=== PATIENT | male | born 1960 | race Caucasian/White ===

== ENCOUNTER 2016-03-20 18:19 | Inpatient (IN) | payer OTHER ==
[~2016-03-20] VITALS: Ht 185.4 cm; Wt 152.0 kg
[~2016-03-20 18:19] MED LIST: ACCOLATE20 MG PO; ACCUPRIL10 MG PO; ACCUPRIL20 MG PO; ACCUPRIL5 MG PO; ACETAMINOPHEN500 MG PO; ADULT LOW DOSE81 M1 PO; ADULT LOW STREN81 M2 PO; ADVAIR 100/501 DISK IH; ADVAIR 250/501 DISK IH; ALDACTONE25 MG PO; ALLOPURINOL100 MG PO; ALPRAZOLAM0.25 M2 PO; AMBIEN10 MG PO; AMIODARONE HCL200 MG PO; AMITRIPTYLINE H10 MG PO; AMOX TR-K CLV1 EAC4 PO; AMOXICILLIN875 MG PO; AMPICILLIN SODIU2 GM IM; ANASPAZ0.125 MG PO; APIDRA100 UNIT/1 SQ; ASPIR-LOW81 MG PO; ASPIR-MOX 325325 M1; ASPIR-MOX IB C325 MG PO; ASPIR-TRIN325 M1 PO; ASPIR-TRIN325 MG PO; ASPIRIN CHEWABL81 M1 PO; ASPIRIN E.C.81 M1 PO; ASPIRIN81 M1 PO; ATROVENT 00.5 MG/2.5 IH; AUGMENTIN875 MG PO; AVELOX ABC PAC400 MG PO; Aldactone PO; Atarax,Vistaril PO; BUPROPION XL150 MG PO; Bactrim,Septra DS 80 PO; CARDURA4 MG PO; CARVEDILOL12.5 MG PO; CARVEDILOL25 MG PO; CARVEDILOL6.25 MG PO; CEFTIN500 MG PO; CELEXA40 MG PO; CITALOPRAM HBR20 MG PO; CITALOPRAM HBR40 MG PO; COLACE100 MG PO; COLACE50 MG PO; CORDARONE200 MG PO; COREG12.5 M1 PO; COREG25 M1 PO; COUMADIN,JANTO1.5 MG PO; COUMADIN,JANTO2.5 MG PO; COUMADIN,JANTO7.5 MG PO; COUMADIN,JANTOVE5 MG PO; COUMADIN2.5 MG PO; COUMADIN5 MG PO; Ceftin PO; Cipro PO; Combivent IH; Cordarone, Pacerone PO; Cortaid,Hytone 1% Cr TP; DAILY VITAMIN1 EAC8 PO; DAILY VITE1 EAC1 PO; DESYREL 150 MG150 MG PO; DESYREL100 MG PO; DESYREL300 MG PO; DOXYCYCLINE HY100 M1 PO; DOXYCYCLINE HY100 MG PO; DUONEB 2.5-0.5 M3 ML IH; Dulcolax PO; ECOTRIN81 M1 PO; ELIQUIS5 MG PO; ENDOCET 5-3251 EACH PO; EUCERIN INTENS250 ML TP; Ecotrin PO; FENOFIBRATE160 M1 PO; FLEXERIL10 MG PO; FLEXERIL5 MG PO; FLUOXETINE HCL40 MG; FLUOXETINE HCL40 MG PO; FOLIC ACID1 MG PO; FUROSEMIDE40 MG PO; Flonase BOTH NARES; GABAPENTIN100 M1 PO; GABAPENTIN100 MG PO; GABAPENTIN300 MG PO; GABAPENTIN600 MG PO; GABAPENTIN800 MG PO; HUMULIN NP100 UNIT/1 SC; HYDROCODON-ACE1 EAC7 PO; HYOSCYAMINE0.125 M2 PO; Halfprin PO; IMDUR120 MG PO; IMDUR30 MG PO; IMDUR60 MG PO; IMODIUM A-D2 MG PO; IPRATROPIU0.2 MG/1 M IH; ISOSORBIDE; ISOSORBIDE MONO30 MG; ISOSORBIDE MONO30 MG PO; Imdur PO; JANTOVEN5 M1 PO; K-DUR10 ME2 PO; K-TAB10 MEQ PO; KENLAOG,ARISTOC60 ML TP; KETOCONAZOLE60 GM TP; KLOR-CON 1010 ME1 PO; KLOR-CON M1010 MEQ PO; KLOR-CON SPRIN10 MEQ PO; LANTUS (UNITS)1 UNIT SC; LANTUS 10100 UNITS/ SC; LANTUS 3 M100 UNITS1 SC; LASIX10 MG PO; LASIX20 MG PO; LASIX40 MG PO; LEVAQUIN750 MG PO; LIPITOR20 MG PO; LIPITOR40 MG PO; LISINOPRIL10 MG PO; LO-DOSE ASPIRIN81 M1 PO; LOFIBRA,TRIGLI160 MG PO; LOPERAMIDE2 MG PO; LOPRESSOR25 MG PO; LORAZEPAM1 MG PO; LOTRISONE15 GM TP; LOW DOSE ASPIRI81 M2 PO; LUMIGAN 0.50 DROP/22 BOTH EYES; LYRICA150 MG PO; LYRICA50 MG PO; LYRICA75 MG PO; Lasix PO; Levaquin PO; Lopressor PO; MEDROL; METOLAZONE2.5 MG PO; METOPROLOL SUCC25 MG PO; METOPROLOL TART25 MG PO; MICRO-K,K-DUR,10 ME1 PO; MICRO-K,K-DUR,10 MEQ PO; MICRO-K10 ME2 PO; MINIPRESS1 MG PO; MORGIDOX100 MG PO; MOTRIN IB200 MG PO; MULTIVITAMIN1 EAC2 PO; Micro-K,K-Tab,K-Dur, PO; NAPROSYN500 MG PO; NEURONTIN100 MG PO; NEURONTIN300 MG PO; NEURONTIN800 MG PO; NITROGLYCERIN0.4 MG SL; NITROSTAT,NITR0.4 M1 SL; NITROSTAT0.4 MG SL; NIZORAL 2% CREA15 GM TP; NOVOLIN,HU100 UNITS/; NOVOLOG 10100 UNITS/ SC; NOVOLOG MI100 UNIT/3 SC; NOVOLOG MI100 UNIT/4 SC; NOVOLOG MI100 UNIT/4 SQ; NOVOLOG MI100 UNIT/M PO; NOVOLOG MI100 UNIT/M SC; NOVOLOG PE100 UNITS/ SC; NOVOLOG100 UNIT/2 SC; Neurontin PO; OXYCODONE-APAP1 EACH PO; PACERONE200 M1 PO; PERCOCET 10/1 TABLET PO; PERCOCET 5/31 TABLET PO; PERCOCET 7.51 TABLET PO; PERPHENAZINE4 MG PO; PLAVIX75 MG PO; POTASSIUM CHLO10 ME3; POTASSIUM CHLO10 ME3 PO; POTASSIUM CHLO10 ME4 PO; POTASSIUM CHLOR8 ME3 PO; PRAZOSIN HCL1 MG PO; PREDNISONE10 MG PO; PREDNISONE20 MG PO; PRINIVIL10 MG PO; PROAIR HFA8.5 GM IH; PROVENTIL,2.5 MG/3 M IH; PROVENTIL17 GM IH; PROZAC40 MG PO; PROzac PO; PSORIASIS CREAM TP; PSORIASIS TP; PriLOSEC PO; QUESTRAN POWDE378 GM PO; ROXICODONE5 MG PO; SANTYL30 GM TP; SEPTRA DS TABL1 EACH PO; SEROQUEL50 MG PO; SERTRALINE HCL100 MG PO; SILVADENE20 GM TP; SILVER SULFADIA50 GM TP; SIMVASTATIN10 M1 PO; SIMVASTATIN10 MG PO; SINGULAIR10 MG PO; SPIRIVA1 INHALATI IH; SPIRONOLACTONE25 MG PO; SYMBICORT60 INHALAT IH; Senokot,Sennagen PO; TAMIFLU75 MG PO; TOBRAMYCIN-DEXAM5 ML BOTH EYES; TRAZODONE HCL100 MG PO; TRAZODONE HCL150 MG PO; TRAZODONE HCL300 MG PO; TRESIBA FL200 UNIT/1 SC; TRIAMCINOLONE A15 GM TP; TRILAFON4 MG PO; Tylenol Regular Stre PO; VENTOLIN HFA18 GM IH; VICTOZA 2-0.6 MG/0.1 SC; VICTOZA0.6 MG/0.1 SC; VITAMIN B12 100MCG PO; Vibramycin, Doryx PO; WARFARIN SODIU2.5 MG PO; WELLBUTRIN XL150 MG PO; XANAX0.25 MG PO; ZAROXOLYN2.5 MG PO; ZESTRIL,PRINIVI10 M1 PO; ZESTRIL,PRINIVI10 MG PO; ZESTRIL,PRINIVIL5 MG PO; ZESTRIL2.5 MG PO; ZITHROMAX Z-PA250 MG PO; ZITHROMAX250 MG PO; ZOCOR10 MG PO; ZYLOPRIM100 MG PO; ZYVOX600 MG; ZYVOX600 MG PO; Zestril,Prinivil PO; Zocor PO; [UNRECOGNIZED DRUG - CODE]; predniSONE PO
[2016-03-20 19:42] LABS: HEMATOCRIT 41.5 % (38.0-50.0); MCH 29.1 PG (29.0-34.0); MCHC 35.7 G/DL (30.0-36.0); MCV 81.5 FL (86-99); MEAN PLAT.VOLUME 10.5 uM^3 (9.0-12.4); PLATELET COUNT 80 K/uL (156-360); RBC DIS.WIDTH-CV 13.5 % (11.8-14.6); RED BLOOD COUNT 5.09 M/uL (4.00-5.50); WHITE BLOOD COUNT 6.6 K/uL (4.1-10.2)
[2016-03-20 19:53] LABS: CHLORIDE 107 mEq/L (99-109); POTASSIUM 3.4 mEq/L (3.7-5.4); SODIUM 142 mEq/L (136-147)
[2016-03-20 19:55] LABS: GLUCOSE 277 mg/dL (70-99)
[2016-03-20 19:56] LABS: ANION GAP 10 MEQ/L (2-14)
[2016-03-20 19:58] LABS: SERUM ETHYL ALCOHOL < 10 mg/dL
[2016-03-20 19:59] LABS: GFR ESTIMATE (CALCULATED) > 59 mL/min/
[2016-03-20 20:00] LABS: UREA NITROGEN (BUN) 9 mg/dL (9-23)
[2016-03-20 20:50] LABS: AMPHETAMINE NEGATIVE (500 ng/mL); BARBITURATES NEGATIVE (200 ng/mL); BENZODIAZEPINES NEGATIVE (150 ng/mL); COCAINE NEGATIVE (150 ng/mL); INTERNAL CONTROLS VALID? YES; METHADONE NEGATIVE (200 ng/mL); METHAMPHETAMINE NEGATIVE (500 ng/mL); OPIATES (MORPHINE) NEGATIVE (100 ng/mL); OXYCODONE NEGATIVE (100 ng/mL); PHENCYCLIDINE NEGATIVE (25 ng/mL); PROPOXYPHENE NEGATIVE (300 ng/mL); THC CANNABINOIDS NEGATIVE (50 ng/mL); TRICYCLIC ANTIDEPRESSANTS NEGATIVE (300 ng/mL)
[2016-03-20] MEDS ORDERED: ALDACTONE25 MG PO (22:07)
[2016-03-20] MEDS ORDERED: ENDOCET 10-3251 EACH PO (22:08)
[2016-03-20] MEDS ORDERED: LISINOPRIL2.5 MG PO (22:13)
[2016-03-20] MEDS ORDERED: HUMULIN R500 UNIT/1 SC (22:14)
[2016-03-20] MEDS ORDERED: FOLIC ACID1 MG PO (22:14)
[2016-03-20] MEDS ORDERED: ECONAZOLE NITRA15 GM TP (22:15)
[2016-03-20 22:31] VITALS: BP 146/92
[2016-03-21 06:13] LABS: POINT-OF-CARE METER ID UU13113830; POINT-OF-CARE USER ID ENVTLS63
[2016-03-21 07:59] VITALS: BP 127/74
[2016-03-21 11:43] LABS: POINT-OF-CARE METER ID UU13113830
[2016-03-21 15:36] VITALS: BP 106/62
[2016-03-21 16:38] LABS: POINT-OF-CARE METER ID UU13113830
[2016-03-21 21:07] LABS: POINT-OF-CARE METER ID UU13113830; POINT-OF-CARE USER ID ENVTLS63
[2016-03-21 21:51] VITALS: BP 104/58
[2016-03-22 02:09] LABS: POINT-OF-CARE METER ID UU13113830; POINT-OF-CARE USER ID ENVTLS63
[2016-03-22 06:33] LABS: POINT-OF-CARE METER ID UU13113830; POINT-OF-CARE USER ID ENVTLS63
[2016-03-22 09:51] VITALS: BP 128/70
[2016-03-22 11:35] LABS: POINT-OF-CARE METER ID UU13113830
[2016-03-22 15:47] VITALS: BP 138/79
[2016-03-22 17:01] LABS: POINT-OF-CARE METER ID UU13113830
[2016-03-22 20:34] LABS: POINT-OF-CARE METER ID UU13113830
[2016-03-22 21:54] VITALS: BP 149/73
[2016-03-23 06:35] LABS: POINT-OF-CARE METER ID UU13113830
[2016-03-23 07:00] VITALS: BP 102/59
[2016-03-23 07:32] LABS: Estimated Average Glucose 229 mg/dL (70-123); HEMOGLOBIN A1c (GLYCOHEMOGLOB) 9.6 % HGB (Below 5.7)
[2016-03-23 09:20] VITALS: BP 154/84
[2016-03-23 11:36] LABS: POINT-OF-CARE METER ID UU13113830
[2016-03-23 14:33] LABS: POINT-OF-CARE METER ID UU13113830
[2016-03-23 15:35] VITALS: BP 109/61
[2016-03-23 16:44] LABS: POINT-OF-CARE METER ID UU13113830
[2016-03-23 20:31] LABS: POINT-OF-CARE METER ID UU13113830
[2016-03-24 02:17] LABS: POINT-OF-CARE METER ID UU13113830
[2016-03-24 06:29] LABS: POINT-OF-CARE METER ID UU13113830
[2016-03-24 08:03] VITALS: BP 117/75
[2016-03-24 12:01] LABS: POINT-OF-CARE METER ID UU13113830; POINT-OF-CARE USER ID BHSTSA
[2016-03-24 14:20] LABS: POINT-OF-CARE METER ID UU13113830; POINT-OF-CARE USER ID BHSTSA
[2016-03-24 16:28] VITALS: BP 123/69
[2016-03-24 17:18] LABS: POINT-OF-CARE METER ID UU13113830
[2016-03-24 21:34] LABS: POINT-OF-CARE METER ID UU13113830; POINT-OF-CARE USER ID BHSSMG
[2016-03-25 06:08] LABS: POINT-OF-CARE METER ID UU13113830; POINT-OF-CARE USER ID BHSSMG
[2016-03-25 07:46] VITALS: BP 135/69
[2016-03-25] MEDS ORDERED: LEVEMIR100 UNIT/2 SC (10:30)
[2016-03-25 13:12] LABS: POINT-OF-CARE METER ID UU13113830; POINT-OF-CARE USER ID HRSENV50
== END 2016-03-25 13:02 | disposition home or self-care (01) | DRG 885 ==
LOC: EME 18:19 → EDOF 20:49 → 1WEST 20:49
PROVIDERS: Emergency Medicine; Hospitalist; Psychiatry & Neurology Psychiatry
DX: F33.1 Major depressive disorder, recurrent, moderate (principal); E11.00 Type 2 diabetes mellitus with hyperosmolarity without nonketotic hyperglycemic-hyperosmolar coma (NKHHC); R45.851 Suicidal ideations; J96.11 Chronic respiratory failure with hypoxia; Z68.41 Body mass index [BMI] 40.0-44.9, adult; F34.1 Dysthymic disorder; F60.7 Dependent personality disorder; E66.01 Morbid (severe) obesity due to excess calories; I25.10 Atherosclerotic heart disease of native coronary artery without angina pectoris; Z95.5 Presence of coronary angioplasty implant and graft; Z99.81 Dependence on supplemental oxygen; G47.33 Obstructive sleep apnea (adult) (pediatric); Z91.19 Patient's noncompliance with other medical treatment and regimen; I48.0 Paroxysmal atrial fibrillation; J45.909 Unspecified asthma, uncomplicated; J44.9 Chronic obstructive pulmonary disease, unspecified; I50.9 Heart failure, unspecified; I11.0 Hypertensive heart disease with heart failure; E78.5 Hyperlipidemia, unspecified; D69.6 Thrombocytopenia, unspecified
CPT/HCPCS: 80048; 82948; 83036; 85027; 90839; 94640; 94640 76; 94660; 97150 GO; 97165 GO; 99202; 99281; 99285; G0480; J1815

== ENCOUNTER 2016-04-10 20:08 | Inpatient (IN) | payer OTHER ==
[~2016-04-10] VITALS: Ht 185.4 cm; Wt 137.2 kg
[~2016-04-10 20:08] MED LIST changes: +ECONAZOLE NITRA15 GM TP; +ENDOCET 10-3251 EACH PO; +HUMULIN R500 UNIT/1 SC; +LEVEMIR100 UNIT/2 SC; +LISINOPRIL2.5 MG PO
[2016-04-10] MEDS ORDERED: METFORMIN HCL1000 MG PO (21:22)
[2016-04-10] MEDS ORDERED: PERCOCET 10/1 TABLET PO (21:22)
[2016-04-10] MEDS ORDERED: ELIQUIS5 MG PO (21:42)
[2016-04-10] MEDS ORDERED: TRESIBA FL100 UNIT/1 SC (21:44)
[2016-04-10 22:11] LABS: EOSINOPHIL (%) 1.6 % (0-5); EOSINOPHIL COUNT 0.1 K/uL (0-0.3); HEMATOCRIT 41.4 % (38.0-50.0); IMMATURE GRANULOCYTE (%) 0.3 % (0.0-0.7); IMMATURE GRANULOCYTE COUNT 0.2 K/uL; LYMPHOCYTE COUNT 2.1 K/uL (1.0-2.8); MCH 28.9 PG (29.0-34.0); MCHC 34.8 G/DL (30.0-36.0); MCV 83.1 FL (86-99); MEAN PLAT.VOLUME 10.6 uM^3 (9.0-12.4); MONOCYTE (%) 7.5 % (3-12); MONOCYTE COUNT 0.5 K/uL (0-0.8); NEUTROPHIL COUNT 4.1 K/uL (1.8-6.4); PLATELET COUNT 67 K/uL (156-360); RBC DIS.WIDTH-CV 13.7 % (11.8-14.6); RBC DIS.WIDTH-SD 40.9 % (39-53); RED BLOOD COUNT 4.98 M/uL (4.00-5.50); WHITE BLOOD COUNT 6.8 K/uL (4.1-10.2)
[2016-04-10 22:19] LABS: CHLORIDE 106 mEq/L (99-109); POTASSIUM 3.8 mEq/L (3.7-5.4); SODIUM 137 mEq/L (136-147)
[2016-04-10 22:20] LABS: GLUCOSE 323 mg/dL (70-99)
[2016-04-10 22:22] LABS: ANION GAP 10 MEQ/L (2-14)
[2016-04-10 22:24] LABS: GFR ESTIMATE (CALCULATED) > 59 mL/min/; SERUM ETHYL ALCOHOL < 10 mg/dL
[2016-04-10 22:25] LABS: UREA NITROGEN (BUN) 14 mg/dL (9-23)
[2016-04-10] MEDS ORDERED: WELLBUTRIN SR100 MG PO (22:49)
[2016-04-10] MEDS ORDERED: METFORMIN HCL850 MG PO (22:52)
[2016-04-10 23:27] LABS: AMPHETAMINE NEGATIVE (500 ng/mL); BARBITURATES NEGATIVE (200 ng/mL); BENZODIAZEPINES NEGATIVE (150 ng/mL); COCAINE NEGATIVE (150 ng/mL); INTERNAL CONTROLS VALID? YES; METHADONE NEGATIVE (200 ng/mL); METHAMPHETAMINE NEGATIVE (500 ng/mL); OPIATES (MORPHINE) NEGATIVE (100 ng/mL); OXYCODONE NEGATIVE (100 ng/mL); PHENCYCLIDINE NEGATIVE (25 ng/mL); PROPOXYPHENE NEGATIVE (300 ng/mL); THC CANNABINOIDS NEGATIVE (50 ng/mL); TRICYCLIC ANTIDEPRESSANTS NEGATIVE (300 ng/mL)
[2016-04-11 02:41] VITALS: BP 158/96
[2016-04-11 06:20] LABS: POINT-OF-CARE METER ID UU13113830
[2016-04-11 08:04] VITALS: BP 137/75
[2016-04-11 11:44] LABS: POINT-OF-CARE METER ID UU13113830
[2016-04-11 15:00] VITALS: BP 126/63
[2016-04-11 17:03] LABS: POINT-OF-CARE METER ID UU13113830
[2016-04-11 21:13] LABS: POINT-OF-CARE METER ID UU13113830
[2016-04-12 06:21] LABS: POINT-OF-CARE METER ID UU13113830
[2016-04-12 07:32] VITALS: BP 118/71
[2016-04-12 11:46] LABS: POINT-OF-CARE METER ID UU13113830
[2016-04-12 15:30] VITALS: BP 106/53
[2016-04-12 16:52] LABS: POINT-OF-CARE METER ID UU13113830; POINT-OF-CARE USER ID BHSMEW
[2016-04-12 21:38] LABS: POINT-OF-CARE METER ID UU13113830; POINT-OF-CARE USER ID BHSMEW
[2016-04-12 22:57] LABS: C DIFF TOXIN NEGATIVE (NEGATIVE); PROBE CHECK PASS; SPECIMEN PROCESSING CONTROL PASS
[2016-04-13 06:21] LABS: POINT-OF-CARE METER ID UU13113830; POINT-OF-CARE USER ID ENVTLS63
[2016-04-13 08:00] VITALS: BP 137/71
[2016-04-13 12:15] LABS: POINT-OF-CARE METER ID UU13113830; POINT-OF-CARE USER ID BHSTSA
[2016-04-13 15:02] VITALS: BP 105/62
[2016-04-13 16:36] LABS: POINT-OF-CARE METER ID UU13113830; POINT-OF-CARE USER ID BHSTSA
[2016-04-13 21:23] LABS: POINT-OF-CARE METER ID UU13113830
[2016-04-14 06:50] LABS: POINT-OF-CARE METER ID UU13113830
[2016-04-14 07:42] VITALS: BP 114/72
[2016-04-14 12:12] LABS: POINT-OF-CARE METER ID UU13113830; POINT-OF-CARE USER ID HRSENV50
[2016-04-14 15:18] VITALS: BP 126/66
[2016-04-14 16:54] LABS: POINT-OF-CARE METER ID UU13113830
[2016-04-14 21:19] LABS: POINT-OF-CARE METER ID UU13113830
[2016-04-15 06:15] LABS: POINT-OF-CARE METER ID UU13113830; POINT-OF-CARE USER ID BHSSMG
[2016-04-15 07:58] VITALS: BP 100/56
[2016-04-15 11:51] LABS: POINT-OF-CARE METER ID UU13113830; POINT-OF-CARE USER ID HRSENV50
== END 2016-04-15 12:58 | disposition home or self-care (01) | DRG 885 ==
LOC: EME → EDBD 20:08 → 1WEST 23:42 → EDOF 23:42 → 1WEST 04-11 02:29
PROVIDERS: Emergency Medicine; Psychiatry & Neurology Psychiatry
DX: F33.8 Other recurrent depressive disorders (principal); F60.7 Dependent personality disorder; I10 Essential (primary) hypertension; R45.851 Suicidal ideations; Z68.41 Body mass index [BMI] 40.0-44.9, adult; E11.65 Type 2 diabetes mellitus with hyperglycemia; E66.9 Obesity, unspecified; J44.9 Chronic obstructive pulmonary disease, unspecified; I50.9 Heart failure, unspecified; G40.909 Epilepsy, unspecified, not intractable, without status epilepticus; G47.30 Sleep apnea, unspecified; Z95.810 Presence of automatic (implantable) cardiac defibrillator; Z86.718 Personal history of other venous thrombosis and embolism; Z95.5 Presence of coronary angioplasty implant and graft
CPT/HCPCS: 36415; 80048; 80053; 82948; 83036 GA; 85007; 85025; 85610; 85730; 87493; 90839; 97150 GO; 97165 GO; 99281; 99285; G0480; J1815

== ENCOUNTER 2016-06-28 00:21 | Emergency (ER) | payer OTHER ==
[~2016-06-28] VITALS: Ht 188 cm; Wt 151.2 kg
[~2016-06-28 00:21] MED LIST changes: +METFORMIN HCL1000 MG PO; +METFORMIN HCL850 MG PO; +TRESIBA FL100 UNIT/1 SC; +WELLBUTRIN SR100 MG PO
[2016-06-28 00:35] LABS: POINT-OF-CARE METER ID UU14100415
[2016-06-28 00:46] LABS: MCH 29.3 PG (29.0-34.0); MCHC 33.8 G/DL (30.0-36.0); MCV 86.8 FL (86-99); MEAN PLAT.VOLUME 11.1 uM^3 (9.0-12.4); PLATELET COUNT 83 K/uL (156-360); RBC DIS.WIDTH-CV 12.7 % (11.8-14.6); RBC DIS.WIDTH-SD 40.1 % (39-53); RED BLOOD COUNT 4.84 M/uL (4.00-5.50); WHITE BLOOD COUNT 9.3 K/uL (4.1-10.2)
[2016-06-28 00:49] LABS: CARBON DIOXIDE (BICARBONATE) 26.8 MEQ/L (20-31)
[2016-06-28 00:54] LABS: CHLORIDE 106 mEq/L (99-109); SODIUM 137 mEq/L (136-147)
[2016-06-28 00:56] LABS: GLUCOSE 183 mg/dL (70-99)
[2016-06-28 00:58] LABS: ANION GAP 9 MEQ/L (2-14); TOTAL BILIRUBIN 0.6 mg/dL (0.0-1.0)
[2016-06-28 01:00] LABS: ALKALINE PHOSPHATASE 60 IU/L (3-129); GFR ESTIMATE (CALCULATED) > 59 mL/min/
[2016-06-28 01:01] LABS: UREA NITROGEN (BUN) 13 mg/dL (9-23)
[2016-06-28 03:09] LABS: TROP-I INTERPRETATION NEGATIVE; TROPONIN-I 0.02 ng/mL (0.0-0.30)
[2016-06-28 03:19] VITALS: BP 123/61
== END 2016-06-28 03:30 | disposition home or self-care (01) ==
LOC: EME 00:21
PROVIDERS: Emergency Medicine
DX: E11.649 Type 2 diabetes mellitus with hypoglycemia without coma (principal); I25.2 Old myocardial infarction; Z79.4 Long term (current) use of insulin; Z91.040 Latex allergy status; Z88.8 Allergy status to other drugs, medicaments and biological substances
CPT/HCPCS: 80053; 82010; 82803; 82948; 84484; 85027; 93005; 99281; 99284

== ENCOUNTER 2016-06-30 04:16 | Inpatient (IN) | payer OTHER ==
[~2016-06-30] VITALS: Ht 188 cm; Wt 173.4 kg
[2016-06-30] VITALS (10 sets, daily range): BP systolic 78–135; BP diastolic 39–110
[2016-06-30 04:32] LABS: POTASSIUM 3.3 mEq/L (3.7-5.4)
[2016-06-30 04:44] LABS: BASOPHIL COUNT 0.1 K/uL (0-0.1); EOSINOPHIL (%) 1.8 % (0-5); EOSINOPHIL COUNT 0.3 K/uL (0-0.3); HEMATOCRIT 52.1 % (38.0-50.0); IMMATURE GRANULOCYTE (%) 0.7 % (0.0-0.7); IMMATURE GRANULOCYTE COUNT 0.1 K/uL; INSTRUMENT ABS NEUTROPHIL CT 11.5 K/uL; LYMPHOCYTE COUNT 5.6 K/uL (1.0-2.8); MCH 29.2 PG (29.0-34.0); MCHC 32.6 G/DL (30.0-36.0); MCV 89.4 FL (86-99); MEAN PLAT.VOLUME 10.7 uM^3 (9.0-12.4); MONOCYTE (%) 5.9 % (3-12); MONOCYTE COUNT 1.1 K/uL (0-0.8); NEUTROPHIL (%) 61.4 % (45-76); NEUTROPHIL COUNT 11.5 K/uL (1.8-6.4); RBC DIS.WIDTH-CV 12.9 % (11.8-14.6); RBC DIS.WIDTH-SD 41.9 % (39-53)
[2016-06-30 04:45] LABS: PLATELET COUNT 131 K/uL (156-360); RED BLOOD COUNT 5.83 M/uL (4.00-5.50); WHITE BLOOD COUNT 18.7 K/uL (4.1-10.2)
[2016-06-30 04:51] LABS: BASE EXCESS -5.4 mEq/L (-3 to +3); BICARBONATE 25.3 mEq/L (22-26); CARBOXY HGB 1.7 % (0-5); MECHANICAL RATE 22 resp/min; METHEMOGLOBIN 0.7 % (0-1.5); MODE AC; PCO2 71 mm Hg (35-45); PEEP 8 CM/H20; PO2 46 mm Hg (80-100); TIDAL VOLUME 500 ML; TOTAL RESP RATE 22 resp/min; pH 7.16 (7.35-7.45)
[2016-06-30 04:52] LABS: DEVICE PB840; FI02 100 %; SITE LR
[2016-06-30 04:54] LABS: CHLORIDE 105 mEq/L (99-109); POTASSIUM 3.3 mEq/L (3.7-5.4); SODIUM 140 mEq/L (136-147)
[2016-06-30 04:55] LABS: INTER. NORMALIZED RATIO 1.5; PROTHROMBIN TIME 15.6 (9.2-11.2); PTT 49.7 (25-32)
[2016-06-30 04:56] LABS: GLUCOSE 213 mg/dL (70-99)
[2016-06-30 04:57] LABS: ANION GAP 17 MEQ/L (2-14)
[2016-06-30 04:59] LABS: TOTAL BILIRUBIN 0.8 mg/dL (0.0-1.0)
[2016-06-30 05:00] LABS: ALKALINE PHOSPHATASE 96 IU/L (3-129); GFR ESTIMATE (CALCULATED) > 59 mL/min/
[2016-06-30 05:01] LABS: UREA NITROGEN (BUN) 10 mg/dL (9-23)
[2016-06-30 05:03] LABS: LIPASE 28 U/L (1.0-51.0); TROP-I INTERPRETATION NEGATIVE; TROPONIN-I 0.04 ng/mL (0.0-0.30)
[2016-06-30 05:25] LABS: ADD MIUA? YES; BILIRUBIN NEGATIVE; BLOOD MODERATE; COLOR YELLOW ((YELLOW)); GLUCOSE (STRIP) 150; KETONES NEGATIVE; LEUKOCYTES NEGATIVE; NITRITE NEGATIVE; PROTEIN (STRIP) >=500; SPECIFIC GRAVITY 1.017 (1.000-1.030); UROBILINOGEN 0.2 MG/DL (0.2-1.0)
[2016-06-30 05:31] LABS: BASE EXCESS -4.2 mEq/L (-3 to +3); BICARBONATE 25.2 mEq/L (22-26); CARBOXY HGB 1.8 % (0-5); PO2 50 mm Hg (80-100)
[2016-06-30 05:32] LABS: DEVICE PB840; FI02 100 %; MECHANICAL RATE 24 resp/min; MODE AC; PCO2 63 mm Hg (35-45); PEEP 12 CM/H20; SITE LR; TIDAL VOLUME 550 ML; TOTAL RESP RATE 24 resp/min; pH 7.21 (7.35-7.45)
[2016-06-30 05:33] LABS: BACTERIA 1+ /HPF; EPITHELIAL CELLS RARE /HPF; GRANULAR CASTS 25-30 /LPF; MUCUS TRACE /LPF; RED BLOOD CELLS TNTC /HPF (0-5); UCUL ADDED? NO
[2016-06-30 05:34] LABS: CELLULAR CASTS 0-5 /LPF
[2016-06-30 06:03] LABS: D-DIMER ELISA 1.57 mg/L FEU (< 0.57)
[2016-06-30 07:02] LABS: POINT-OF-CARE METER ID UU14162636; POINT-OF-CARE USER ID ENVSME70
[2016-06-30 08:26] LABS: MAGNESIUM 2.1 mg/dL (1.3-2.7)
[2016-06-30 09:30] LABS: BASE EXCESS -3.1 mEq/L (-3 to +3); CARBOXY HGB 1.7 % (0-5); DEVICE VENT; FI02 30 %; INSPIRATION TIME 0.86 seconds; MECHANICAL RATE 24 resp/min; METHEMOGLOBIN 1.7 % (0-1.5); MODE ACPC; PCO2 39 mm Hg (35-45); PO2 463 mm Hg (80-100); SITE R ART LINE; TOTAL RESP RATE 25 resp/min; pH 7.36 (7.35-7.45)
[2016-06-30 09:31] LABS: PEEP 14 CM/H20; PRESSURE CONTROL VENTILATION 18 CM H20
[2016-06-30 09:48] LABS: INTER. NORMALIZED RATIO 1.4; PROTHROMBIN TIME 14.7 (9.2-11.2); PTT 48.2 (25-32)
[2016-06-30 10:29] LABS: METH RESISTANT S AUREUS PCR POSITIVE (NEGATIVE)
[2016-06-30 10:39] LABS: PROBE CHECK PASS
[2016-06-30 12:36] LABS: POINT-OF-CARE METER ID UU13113731
[2016-06-30] MEDS ORDERED: DESYREL300 MG PO (13:37)
[2016-06-30 13:38] LABS: TROP-I INTERPRETATION NEGATIVE; TROPONIN-I 0.09 ng/mL (0.0-0.30)
[2016-06-30] MEDS ORDERED: WELLBUTRIN XL150 MG PO (13:38)
[2016-06-30] MEDS ORDERED: SINGULAIR10 MG PO (13:41)
[2016-06-30] MEDS ORDERED: DESYREL 150 MG150 MG PO (13:42)
[2016-06-30] MEDS ORDERED: OXYCODONE-APAP1 EACH PO (13:45)
[2016-06-30] MEDS ORDERED: NOVOLIN,HU100 UNITS/ SC ×2 (13:48)
[2016-06-30 16:55] LABS: AMPHETAMINES QUANT VALUE 0 NG/ML; BARBITUATES QUANT VALUE 0 NG/ML; BENZODIAZEPINES, URINE SCREEN POSITIVE (200 ng/mL); MARIJUANA QUANT VALUE 0 NG/ML; OPIATES QUANTITATIVE VALUE 0 NG/ML; PHENCYCLIDINE QUANT VALUE 0 NG/ML; UR CREATININE CONCENTRATION 125.3 MG/DL
[2016-06-30 18:26] LABS: POINT-OF-CARE METER ID UU14174217
[2016-06-30 19:05] LABS: TROP-I INTERPRETATION NEGATIVE; TROPONIN-I 0.13 ng/mL (0.0-0.30)
[2016-07-01 00:55] LABS: BASE EXCESS -1.3 mEq/L (-3 to +3); BICARBONATE 24.3 mEq/L (22-26); CARBOXY HGB 2.6 % (0-5); METHEMOGLOBIN 1.5 % (0-1.5); PCO2 43 mm Hg (35-45); pH 7.36 (7.35-7.45)
[2016-07-01 00:56] LABS: COMMENTS - BLOOD GASES C+; DEVICE 840 VENT; FI02 30 %; MODE TUBE COMP; PEEP 5 CM/H20; PO2 56 mm Hg (80-100); SITE ALINE; TOTAL RESP RATE 23 resp/min
[2016-07-01 01:13] LABS: POINT-OF-CARE METER ID UU14162636
[2016-07-01 01:25] LABS: TROP-I INTERPRETATION NEGATIVE; TROPONIN-I 0.09 ng/mL (0.0-0.30)
[2016-07-01 02:00] VITALS: BP 144/79
[2016-07-01 03:22] LABS: BASE EXCESS -0.4 mEq/L (-3 to +3); BICARBONATE 24.8 mEq/L (22-26); CARBOXY HGB 2.9 % (0-5); COMMENTS - BLOOD GASES C+; DEVICE 980 VENT; FI02 30 %; METHEMOGLOBIN 1.5 % (0-1.5); MODE SPONT; PCO2 42 mm Hg (35-45); PEEP 7 CM/H20; PO2 63 mm Hg (80-100); PRES. SUPPORT 5 CM/H2O; SITE ALINE; pH 7.38 (7.35-7.45)
[2016-07-01 05:19] LABS: POINT-OF-CARE METER ID UU14162636
[2016-07-01 07:40] LABS: ANION GAP 10 MEQ/L (2-14); CHLORIDE 108 MEQ/L (99-109); GFR ESTIMATE (CALCULATED) > 59 mL/min/; GLUCOSE 159 mg/dL (70-99); MAGNESIUM 2.1 mg/dl (1.3-2.7); POTASSIUM 3.9 MEQ/L (3.7-5.4); SAMPLE HEMOLYSIS CHECK 0; SAMPLE ICTERIC CHECK 0; SAMPLE LIPEMIA CHECK 0; SODIUM 141 MEQ/L (136-147); UREA NITROGEN (BUN) 17 mg/dL (9-23)
[2016-07-01 07:52] LABS: TROP-I INTERPRETATION NEGATIVE; TROPONIN-I 0.08 ng/mL (0.0-0.30)
[2016-07-01 07:53] LABS: EOSINOPHIL (%) 0.9 % (0-5); EOSINOPHIL COUNT 0.1 K/uL (0-0.3); HEMATOCRIT 39.8 % (38.0-50.0); IMMATURE GRANULOCYTE (%) 0.5 % (0.0-0.7); IMMATURE GRANULOCYTE COUNT 0.1 K/uL; INSTRUMENT ABS NEUTROPHIL CT 7.8 K/uL; LYMPHOCYTE COUNT 1.7 K/uL (1.0-2.8); MCH 29.6 PG (29.0-34.0); MCHC 33.2 G/DL (30.0-36.0); MCV 89.2 FL (86-99); MONOCYTE (%) 8.8 % (3-12); MONOCYTE COUNT 0.9 K/uL (0-0.8); NEUTROPHIL (%) 73.6 % (45-76); NEUTROPHIL COUNT 7.8 K/uL (1.8-6.4); RBC DIS.WIDTH-CV 13.2 % (11.8-14.6); RBC DIS.WIDTH-SD 43.2 % (39-53)
[2016-07-01 08:02] LABS: RED BLOOD COUNT 4.46 M/uL (4.00-5.50); WHITE BLOOD COUNT 10.5 K/uL (4.1-10.2)
[2016-07-01 08:25] LABS: MEAN PLAT.VOLUME 11.5 uM^3 (9.0-12.4); PLAT.SUFFICIENCY DECREASED
[2016-07-01 08:34] LABS: PLATELET COUNT 84 K/uL (156-360)
[2016-07-01 08:35] LABS: INTERNAL CONTROL VALID? YES
[2016-07-01 09:19] LABS: BASE EXCESS -0.6 mEq/L (-3 to +3); BICARBONATE 23.2 mEq/L (22-26); CARBOXY HGB 2.7 % (0-5); METHEMOGLOBIN 1.4 % (0-1.5); pH 7.43 (7.35-7.45)
[2016-07-01 09:20] LABS: DEVICE VENT; FI02 35 %; MODE SPONT; PCO2 35 mm Hg (35-45); PO2 80 mm Hg (80-100); SITE R ARTLINE; TOTAL RESP RATE 20 resp/min
[2016-07-01 09:21] LABS: PEEP 5 CM/H20; PRES. SUPPORT 7 CM/H2O
[2016-07-01 12:56] LABS: POINT-OF-CARE METER ID UU13113731
[2016-07-01 18:04] LABS: POINT-OF-CARE METER ID UU14162636
[2016-07-01 19:00] VITALS: BP 123/71
[2016-07-01 20:00] VITALS: BP 115/74
[2016-07-01 21:00] VITALS: BP 115/74
[2016-07-01 22:00] VITALS: BP 109/54
[2016-07-01 23:00] VITALS: BP 109/54
[2016-07-02] VITALS (9 sets, daily range): BP systolic 96–150; BP diastolic 47–88
[2016-07-02] LABS: POINT-OF-CARE METER ID UU14162636
[2016-07-02 06:05] LABS: BASOPHIL COUNT 0.1 K/uL (0-0.1); EOSINOPHIL (%) 2.7 % (0-5); EOSINOPHIL COUNT 0.3 K/uL (0-0.3); HEMATOCRIT 37.4 % (38.0-50.0); IMMATURE GRANULOCYTE (%) 0.4 % (0.0-0.7); INSTRUMENT ABS NEUTROPHIL CT 6.1 K/uL; LYMPHOCYTE COUNT 2.1 K/uL (1.0-2.8); MCH 29.3 PG (29.0-34.0); MCHC 33.2 G/DL (30.0-36.0); MCV 88.4 FL (86-99); MONOCYTE (%) 7.9 % (3-12); MONOCYTE COUNT 0.7 K/uL (0-0.8); NEUTROPHIL (%) 65.7 % (45-76); NEUTROPHIL COUNT 6.1 K/uL (1.8-6.4); PLATELET COUNT 87 K/uL (156-360); RBC DIS.WIDTH-CV 12.5 % (11.8-14.6); RBC DIS.WIDTH-SD 40.5 % (39-53); RED BLOOD COUNT 4.23 M/uL (4.00-5.50); WHITE BLOOD COUNT 9.2 K/uL (4.1-10.2)
[2016-07-02 06:42] LABS: ANION GAP 8 MEQ/L (2-14); CHLORIDE 98 MEQ/L (99-109); GFR ESTIMATE (CALCULATED) > 59 mL/min/; GLUCOSE 202 mg/dL (70-99); POTASSIUM 3.5 MEQ/L (3.7-5.4); SAMPLE HEMOLYSIS CHECK 0; SAMPLE ICTERIC CHECK 0; SAMPLE LIPEMIA CHECK 0; SODIUM 137 MEQ/L (136-147); UREA NITROGEN (BUN) 17 mg/dL (9-23)
[2016-07-02 06:48] LABS: MAGNESIUM 1.7 mg/dl (1.3-2.7)
[2016-07-02 08:55] LABS: POINT-OF-CARE USER ID 612031313
[2016-07-02 12:25] LABS: POINT-OF-CARE USER ID 612031313
[2016-07-02 17:13] LABS: Estimated Average Glucose 217 mg/dL (70-123); HEMOGLOBIN A1c (GLYCOHEMOGLOB) 9.2 % HGB (Below 5.7)
[2016-07-02 21:45] LABS: POINT-OF-CARE METER ID UU14174225
[2016-07-03 05:31] LABS: HEMATOCRIT 33.6 % (38.0-50.0); MCH 29.7 PG (29.0-34.0); MCHC 33.9 G/DL (30.0-36.0); MCV 87.5 FL (86-99); MEAN PLAT.VOLUME 10.4 uM^3 (9.0-12.4); PLATELET COUNT 76 K/uL (156-360); RBC DIS.WIDTH-CV 12.5 % (11.8-14.6); RBC DIS.WIDTH-SD 40.2 % (39-53); RED BLOOD COUNT 3.84 M/uL (4.00-5.50); WHITE BLOOD COUNT 8.8 K/uL (4.1-10.2)
[2016-07-03 06:07] LABS: ANION GAP 5 MEQ/L (2-14); CHLORIDE 100 MEQ/L (99-109); EOSINOPHIL COUNT 0.2 K/uL (0-0.3); HEMATOLOGY COMMENT 1 SMEAR COMPATIBLE; IMMATURE GRANULOCYTE (%) 0.6 % (0.0-0.7); IMMATURE GRANULOCYTE COUNT 0.1 K/uL; INSTRUMENT ABS NEUTROPHIL CT 6.3 K/uL; LYMPHOCYTE COUNT 1.5 K/uL (1.0-2.8); MAGNESIUM 1.7 mg/dl (1.3-2.7); MONOCYTE (%) 8.3 % (3-12); MONOCYTE COUNT 0.7 K/uL (0-0.8); NEUTROPHIL (%) 71.3 % (45-76); NEUTROPHIL COUNT 6.3 K/uL (1.8-6.4); SAMPLE HEMOLYSIS CHECK 1; SAMPLE ICTERIC CHECK 0; SAMPLE LIPEMIA CHECK 0; SODIUM 133 MEQ/L (136-147); UREA NITROGEN (BUN) 23 mg/dL (9-23)
[2016-07-03 06:08] LABS: GFR ESTIMATE (CALCULATED) 42 mL/min/; GLUCOSE 314 mg/dL (70-99); POTASSIUM 4.7 MEQ/L (3.7-5.4)
[2016-07-03 07:25] VITALS: BP 100/61
[2016-07-03 07:42] LABS: POINT-OF-CARE METER ID UU14174225
[2016-07-03 10:31] VITALS: BP 132/84
[2016-07-03 11:42] LABS: POINT-OF-CARE METER ID UU13113696
[2016-07-03 15:02] LABS: POINT-OF-CARE METER ID UU13113819
[2016-07-03 16:43] VITALS: BP 140/87
[2016-07-03 17:36] VITALS: BP 139/77
[2016-07-03 18:00] VITALS: BP 130/70
[2016-07-03 19:30] VITALS: BP 127/60
[2016-07-03 21:01] LABS: POINT-OF-CARE USER ID ENVMNS
[2016-07-04] VITALS (7 sets, daily range): BP systolic 127–149; BP diastolic 66–82
[2016-07-04 07:47] LABS: EOSINOPHIL (%) 2.7 % (0-5); EOSINOPHIL COUNT 0.3 K/uL (0-0.3); HEMATOCRIT 36.8 % (38.0-50.0); IMMATURE GRANULOCYTE (%) 0.5 % (0.0-0.7); IMMATURE GRANULOCYTE COUNT 0.1 K/uL; INSTRUMENT ABS NEUTROPHIL CT 7.1 K/uL; LYMPHOCYTE COUNT 1.3 K/uL (1.0-2.8); MCH 29.8 PG (29.0-34.0); MCHC 33.7 G/DL (30.0-36.0); MCV 88.5 FL (86-99); MEAN PLAT.VOLUME 11.8 uM^3 (9.0-12.4); MONOCYTE (%) 6.3 % (3-12); MONOCYTE COUNT 0.6 K/uL (0-0.8); NEUTROPHIL (%) 76.6 % (45-76); NEUTROPHIL COUNT 7.1 K/uL (1.8-6.4); PLATELET COUNT 93 K/uL (156-360); RBC DIS.WIDTH-CV 12.5 % (11.8-14.6); RBC DIS.WIDTH-SD 40.2 % (39-53); RED BLOOD COUNT 4.16 M/uL (4.00-5.50); WHITE BLOOD COUNT 9.3 K/uL (4.1-10.2)
[2016-07-04 10:10] LABS: CHLORIDE 104 mEq/L (99-109); POTASSIUM 4.3 mEq/L (3.7-5.4); SODIUM 136 mEq/L (136-147)
[2016-07-04 10:12] LABS: GLUCOSE 256 mg/dL (70-99)
[2016-07-04 10:13] LABS: ANION GAP 9 MEQ/L (2-14)
[2016-07-04 10:15] LABS: GFR ESTIMATE (CALCULATED) 45 mL/min/
[2016-07-04 10:16] LABS: UREA NITROGEN (BUN) 21 mg/dL (9-23)
[2016-07-04 11:33] LABS: POINT-OF-CARE METER ID UU13113781
[2016-07-04 16:20] LABS: POINT-OF-CARE METER ID UU13113781
[2016-07-05 03:38] VITALS: BP 108/53
[2016-07-05 06:32] LABS: EOSINOPHIL (%) 2.9 % (0-5); EOSINOPHIL COUNT 0.2 K/uL (0-0.3); HEMATOCRIT 35.6 % (38.0-50.0); IMMATURE GRANULOCYTE (%) 0.9 % (0.0-0.7); IMMATURE GRANULOCYTE COUNT 0.1 K/uL; INSTRUMENT ABS NEUTROPHIL CT 5.9 K/uL; LYMPHOCYTE COUNT 1.5 K/uL (1.0-2.8); MCH 29.2 PG (29.0-34.0); MCHC 33.1 G/DL (30.0-36.0); MCV 88.1 FL (86-99); MEAN PLAT.VOLUME 11.4 uM^3 (9.0-12.4); MONOCYTE (%) 6.2 % (3-12); MONOCYTE COUNT 0.5 K/uL (0-0.8); NEUTROPHIL (%) 71.4 % (45-76); NEUTROPHIL COUNT 5.9 K/uL (1.8-6.4); PLATELET COUNT 115 K/uL (156-360); RBC DIS.WIDTH-CV 12.3 % (11.8-14.6); RBC DIS.WIDTH-SD 39.9 % (39-53); RED BLOOD COUNT 4.04 M/uL (4.00-5.50); WHITE BLOOD COUNT 8.2 K/uL (4.1-10.2)
[2016-07-05 06:56] LABS: ANION GAP 9 MEQ/L (2-14); CHLORIDE 98 MEQ/L (99-109); GFR ESTIMATE (CALCULATED) 45 mL/min/; GLUCOSE 339 mg/dL (70-99); MAGNESIUM 1.9 mg/dl (1.3-2.7); POTASSIUM 4.2 MEQ/L (3.7-5.4); SAMPLE HEMOLYSIS CHECK 0; SAMPLE ICTERIC CHECK 0; SAMPLE LIPEMIA CHECK 0; SODIUM 133 MEQ/L (136-147); UREA NITROGEN (BUN) 23 mg/dL (9-23)
[2016-07-05 08:35] VITALS: BP 147/82
[2016-07-05] MEDS ORDERED: AMOX TR-K CLV1 EAC4 PO (10:59)
[2016-07-05] MEDS ORDERED: DOCUSATE SODIU100 MG PO (10:59)
[2016-07-05 11:37] LABS: POINT-OF-CARE METER ID UU13113781
== END 2016-07-05 13:53 | disposition home or self-care (01) | DRG 871 ==
LOC: EME 04:16 → EDBD 04:16 → EME 04:16 → 4EAST 04:41 → 4WEST 04:41 → 5SOUTH 04:41 → EDOF 04:41 → 4WEST 05:54 → 5SOUTH 07-02 12:48 → 4EAST 07-03 16:13
PROVIDERS: Emergency Medicine; Hospitalist; Internal Medicine; Internal Medicine Nephrology; Psychiatry & Neurology Neurology
PROC: 5A1945Z Respiratory Ventilation, 24-96 Consecutive Hours (ICD-10-PCS; principal; 2016-06-30)
PROC: 0BH17EZ Insertion of Endotracheal Airway into Trachea, Via Natural or Artificial Opening (ICD-10-PCS; principal; 2016-06-30)
PROC: 03HY32Z Insertion of Monitoring Device into Upper Artery, Percutaneous Approach (ICD-10-PCS; 2016-06-30)
PROC: 4A133B1 Monitoring of Arterial Pressure, Peripheral, Percutaneous Approach (ICD-10-PCS; 2016-06-30)
PROC: 06HM33Z Insertion of Infusion Device into Right Femoral Vein, Percutaneous Approach (ICD-10-PCS; 2016-06-30)
PROC: 4A023N7 Measurement of Cardiac Sampling and Pressure, Left Heart, Percutaneous Approach (ICD-10-PCS; 2016-07-03)
PROC: B2111ZZ Fluoroscopy of Multiple Coronary Arteries using Low Osmolar Contrast (ICD-10-PCS; 2016-07-03)
DX: A41.9 Sepsis, unspecified organism (principal); J96.21 Acute and chronic respiratory failure with hypoxia; J44.0 Chronic obstructive pulmonary disease with (acute) lower respiratory infection; J15.9 Unspecified bacterial pneumonia; I50.23 Acute on chronic systolic (congestive) heart failure; I11.0 Hypertensive heart disease with heart failure; R65.21 Severe sepsis with septic shock; E87.2 Acidosis; J44.1 Chronic obstructive pulmonary disease with (acute) exacerbation; E87.6 Hypokalemia; I42.9 Cardiomyopathy, unspecified; I25.10 Atherosclerotic heart disease of native coronary artery without angina pectoris; E11.65 Type 2 diabetes mellitus with hyperglycemia; I48.0 Paroxysmal atrial fibrillation; E78.5 Hyperlipidemia, unspecified; J45.909 Unspecified asthma, uncomplicated; G47.33 Obstructive sleep apnea (adult) (pediatric); D69.6 Thrombocytopenia, unspecified; Y95 Nosocomial condition; F32.9 Major depressive disorder, single episode, unspecified; E66.01 Morbid (severe) obesity due to excess calories; Z68.41 Body mass index [BMI] 40.0-44.9, adult; Z99.81 Dependence on supplemental oxygen; Z79.01 Long term (current) use of anticoagulants; Z79.02 Long term (current) use of antithrombotics/antiplatelets; Z86.711 Personal history of pulmonary embolism; Z86.718 Personal history of other venous thrombosis and embolism; Z95.5 Presence of coronary angioplasty implant and graft; Z95.810 Presence of automatic (implantable) cardiac defibrillator; Z86.74 Personal history of sudden cardiac arrest
CPT/HCPCS: 36600; 36620; 71010; 71275; 74177; 80047; 80048; 80048 91; 80053; 80202; 80306 90; 81003; 82570; 82803; 82948; 83036; 83605; 83690; 83735; 83880; 84100; 84156; 84300; 84484; 85025; 85027; 85379; 85610; 85730; 87040; 87070; 87077; 87086; 87186; 87205; 87449; 87641; 87801; 93005; 93306; 93970; 94002; 94003; 94640; 94640 76; 94760; 94799; 99202; 99281; 99285; C1769; C1887; C9113; J0456; J1644; J1815; J1940; J2250; J2543; J3010; J3260; J3370; J3475; J3480; J7040; J7050

== ENCOUNTER 2016-08-19 01:49 | Emergency (ER) | payer OTHER ==
[~2016-08-19] VITALS: Ht 185.4 cm; Wt 150.6 kg
[~2016-08-19 01:49] MED LIST changes: +DOCUSATE SODIU100 MG PO; +NOVOLIN,HU100 UNITS/ SC
[2016-08-19 02:59] LABS: HEMATOCRIT 38.1 % (38.0-50.0); MCH 29.3 PG (29.0-34.0); MCHC 34.1 G/DL (30.0-36.0); MEAN PLAT.VOLUME 10.2 uM^3 (9.0-12.4); PLATELET COUNT 94 K/uL (156-360); RBC DIS.WIDTH-CV 13.2 % (11.8-14.6); RED BLOOD COUNT 4.43 M/uL (4.00-5.50); WHITE BLOOD COUNT 8.1 K/uL (4.1-10.2)
[2016-08-19 03:08] LABS: CHLORIDE 102 mEq/L (99-109); POTASSIUM 3.7 mEq/L (3.7-5.4); SODIUM 136 mEq/L (136-147)
[2016-08-19 03:10] LABS: GLUCOSE 282 mg/dL (70-99)
[2016-08-19 03:11] LABS: ANION GAP 10 MEQ/L (2-14)
[2016-08-19 03:12] LABS: TOTAL BILIRUBIN 0.7 mg/dL (0.0-1.0)
[2016-08-19 03:14] LABS: ALKALINE PHOSPHATASE 77 IU/L (3-129); GFR ESTIMATE (CALCULATED) > 59 mL/min/
[2016-08-19 03:15] LABS: UREA NITROGEN (BUN) 15 mg/dL (9-23)
[2016-08-19] MEDS ORDERED: BACTRIM,SEPT1 TABLET PO (03:40)
[2016-08-19] MEDS ORDERED: KEFLEX500 MG PO (03:40)
[2016-08-19 04:10] VITALS: BP 116/78
== END 2016-08-19 04:11 | disposition home or self-care (01) ==
LOC: EME 01:49
DX: E11.621 Type 2 diabetes mellitus with foot ulcer (principal); L97.519 Non-pressure chronic ulcer of other part of right foot with unspecified severity; Z79.4 Long term (current) use of insulin; L03.031 Cellulitis of right toe; I10 Essential (primary) hypertension; Z79.01 Long term (current) use of anticoagulants; Z79.02 Long term (current) use of antithrombotics/antiplatelets
CPT/HCPCS: 73630; 80053; 85027; 99281; 99283

== ENCOUNTER 2016-08-21 12:43 | Inpatient (IN) | payer OTHER ==
[~2016-08-21] VITALS: Ht 185.4 cm; Wt 152.2 kg
[~2016-08-21 12:43] MED LIST changes: +BACTRIM,SEPT1 TABLET PO; +KEFLEX500 MG PO
[2016-08-21 16:49] LABS: MCH 29.6 PG (29.0-34.0); MCHC 33.9 G/DL (30.0-36.0); MCV 87.4 FL (86-99); MEAN PLAT.VOLUME 10.3 uM^3 (9.0-12.4); PLATELET COUNT 87 K/uL (156-360); RBC DIS.WIDTH-CV 13.2 % (11.8-14.6); RED BLOOD COUNT 4.12 M/uL (4.00-5.50)
[2016-08-21 17:07] LABS: CHLORIDE 104 mEq/L (99-109); POTASSIUM 3.9 mEq/L (3.7-5.4); SODIUM 136 mEq/L (136-147)
[2016-08-21 17:09] LABS: GLUCOSE 220 mg/dL (70-99)
[2016-08-21 17:10] LABS: ANION GAP 6 MEQ/L (2-14)
[2016-08-21 17:12] LABS: GFR ESTIMATE (CALCULATED) 56 mL/min/
[2016-08-21 17:13] LABS: UREA NITROGEN (BUN) 11 mg/dL (9-23)
[2016-08-21] MEDS ORDERED: WELLBUTRIN SR100 MG PO (17:30)
[2016-08-21] MEDS ORDERED: WARFARIN SODIU2.5 MG PO (17:31)
[2016-08-21] MEDS ORDERED: PRAZOSIN HCL1 MG PO (17:31)
[2016-08-21 17:46] LABS: EOSINOPHIL (%) 2.4 % (0-5); EOSINOPHIL COUNT 0.2 K/uL (0-0.3); IMMATURE GRANULOCYTE (%) 0.4 % (0.0-0.7); INSTRUMENT ABS NEUTROPHIL CT 4.2 K/uL; LYMPHOCYTE COUNT 2.1 K/uL (1.0-2.8); MONOCYTE (%) 7.3 % (3-12); MONOCYTE COUNT 0.5 K/uL (0-0.8); NEUTROPHIL (%) 59.8 % (45-76); NEUTROPHIL COUNT 4.2 K/uL (1.8-6.4)
[2016-08-21 19:43] LABS: POINT-OF-CARE METER ID UU13113702
[2016-08-21 20:13] LABS: ERTH.SED.RATE 41 MM/HR (0-20)
[2016-08-21 21:35] VITALS: BP 125/95
[2016-08-22 06:31] LABS: HEMATOCRIT 34.7 % (38.0-50.0); MCH 30.1 PG (29.0-34.0); MCV 88.5 FL (86-99); MEAN PLAT.VOLUME 10.5 uM^3 (9.0-12.4); PLATELET COUNT 72 K/uL (156-360); RBC DIS.WIDTH-CV 13.2 % (11.8-14.6); RED BLOOD COUNT 3.92 M/uL (4.00-5.50); WHITE BLOOD COUNT 7.5 K/uL (4.1-10.2)
[2016-08-22 06:56] LABS: POINT-OF-CARE METER ID UU13113725
[2016-08-22 06:58] LABS: ANION GAP 6 MEQ/L (2-14); CHLORIDE 100 MEQ/L (99-109); GFR ESTIMATE (CALCULATED) 56 mL/min/; POTASSIUM 3.7 MEQ/L (3.7-5.4); SAMPLE HEMOLYSIS CHECK 0; SAMPLE ICTERIC CHECK 0; SAMPLE LIPEMIA CHECK 0; SODIUM 133 MEQ/L (136-147); UREA NITROGEN (BUN) 13 mg/dL (9-23)
[2016-08-22 07:00] LABS: GLUCOSE 109 mg/dL (70-99)
[2016-08-22 07:10] VITALS: BP 97/60
[2016-08-22 12:45] LABS: POINT-OF-CARE METER ID UU13113725
[2016-08-22 15:24] VITALS: BP 140/66
[2016-08-22 15:47] VITALS: BP 112/70
[2016-08-22 15:59] LABS: POINT-OF-CARE METER ID UU13113725
[2016-08-22 19:32] LABS: C DIFF TOXIN NEGATIVE (NEGATIVE); PROBE CHECK PASS; SPECIMEN PROCESSING CONTROL PASS
[2016-08-22 23:04] VITALS: BP 114/72
[2016-08-23 07:24] VITALS: BP 138/76
[2016-08-23 07:39] LABS: POINT-OF-CARE METER ID UU13113725
[2016-08-23 11:08] VITALS: BP 114/56
[2016-08-23 11:23] LABS: POINT-OF-CARE METER ID UU13113725
[2016-08-23 15:12] VITALS: BP 123/70
[2016-08-23 15:17] VITALS: BP 156/85
[2016-08-23 16:53] LABS: POINT-OF-CARE METER ID UU13113725
[2016-08-23 21:02] LABS: POINT-OF-CARE METER ID UU13113725
[2016-08-23 23:00] VITALS: BP 111/59
[2016-08-24 06:17] LABS: POINT-OF-CARE USER ID 610071303
[2016-08-24 07:08] LABS: HEMATOCRIT 36.1 % (38.0-50.0); MCHC 32.7 G/DL (30.0-36.0); MCV 88.7 FL (86-99); MEAN PLAT.VOLUME 11.1 uM^3 (9.0-12.4); PLATELET COUNT 86 K/uL (156-360); RBC DIS.WIDTH-CV 13.2 % (11.8-14.6); RBC DIS.WIDTH-SD 42.4 % (39-53); RED BLOOD COUNT 4.07 M/uL (4.00-5.50)
[2016-08-24 07:29] VITALS: BP 95/56
[2016-08-24 08:28] LABS: ANION GAP 9 MEQ/L (2-14); CHLORIDE 105 MEQ/L (99-109); GFR ESTIMATE (CALCULATED) > 59 mL/min/; GLUCOSE 136 mg/dL (70-99); POTASSIUM 3.8 MEQ/L (3.7-5.4); SAMPLE HEMOLYSIS CHECK 0; SAMPLE ICTERIC CHECK 0; SAMPLE LIPEMIA CHECK 0
[2016-08-24 08:30] LABS: SODIUM 140 MEQ/L (136-147); UREA NITROGEN (BUN) 24 mg/dL (9-23)
[2016-08-24 11:41] LABS: POINT-OF-CARE METER ID UU13113725
[2016-08-24 16:01] VITALS: BP 97/55
[2016-08-24 23:49] VITALS: BP 116/66
[2016-08-25 05:01] VITALS: BP 140/64
[2016-08-25 06:55] LABS: HEMATOCRIT 36.1 % (38.0-50.0); MCH 30.3 PG (29.0-34.0); MCHC 33.8 G/DL (30.0-36.0); MCV 89.8 FL (86-99); MEAN PLAT.VOLUME 10.5 uM^3 (9.0-12.4); PLATELET COUNT 81 K/uL (156-360); RBC DIS.WIDTH-CV 13.2 % (11.8-14.6); RBC DIS.WIDTH-SD 43.5 % (39-53); RED BLOOD COUNT 4.02 M/uL (4.00-5.50); WHITE BLOOD COUNT 6.4 K/uL (4.1-10.2)
[2016-08-25 08:39] LABS: ANION GAP 8 MEQ/L (2-14); CHLORIDE 104 MEQ/L (99-109); GFR ESTIMATE (CALCULATED) > 59 mL/min/; POTASSIUM 4.1 MEQ/L (3.7-5.4); SAMPLE HEMOLYSIS CHECK 0; SAMPLE ICTERIC CHECK 0; SAMPLE LIPEMIA CHECK 0; SODIUM 139 MEQ/L (136-147); UREA NITROGEN (BUN) 27 mg/dL (9-23); VANCOMYCIN, TROUGH 20.1 MCG/ML (10-20)
[2016-08-25 08:47] LABS: GLUCOSE 215 mg/dL (70-99)
[2016-08-25 11:31] LABS: POINT-OF-CARE METER ID UU13113725
[2016-08-25 15:20] VITALS: BP 116/68
[2016-08-25 16:20] LABS: POINT-OF-CARE METER ID UU13113725
[2016-08-25 20:24] VITALS: BP 131/69
[2016-08-25 21:30] LABS: POINT-OF-CARE METER ID UU13113725
[2016-08-25 22:28] VITALS: BP 107/59
[2016-08-26 06:46] VITALS: BP 101/56
[2016-08-26 11:26] LABS: POINT-OF-CARE METER ID UU13113725
[2016-08-26] MEDS ORDERED: ELIQUIS5 MG PO (11:29)
[2016-08-26] MEDS ORDERED: OXYCODONE-APAP1 EACH PO (11:29)
[2016-08-26 12:23] LABS: VANCOMYCIN, TROUGH 21.6 MCG/ML (10-20)
== END 2016-08-26 15:18 | DRG 638 ==
LOC: EME 12:43 → 5EAST 16:36 → EDOF 16:36 → 5EAST 21:26
PROVIDERS: Emergency Medicine; Internal Medicine
DX: E11.69 Type 2 diabetes mellitus with other specified complication (principal); M86.8X7 Other osteomyelitis, ankle and foot; E11.621 Type 2 diabetes mellitus with foot ulcer; L97.519 Non-pressure chronic ulcer of other part of right foot with unspecified severity; B95.62 Methicillin resistant Staphylococcus aureus infection as the cause of diseases classified elsewhere; E11.22 Type 2 diabetes mellitus with diabetic chronic kidney disease; I12.9 Hypertensive chronic kidney disease with stage 1 through stage 4 chronic kidney disease, or unspecified chronic kidney disease; N18.2 Chronic kidney disease, stage 2 (mild); E11.40 Type 2 diabetes mellitus with diabetic neuropathy, unspecified; D69.6 Thrombocytopenia, unspecified; J96.11 Chronic respiratory failure with hypoxia; Z99.81 Dependence on supplemental oxygen; I95.9 Hypotension, unspecified; I25.5 Ischemic cardiomyopathy; I25.10 Atherosclerotic heart disease of native coronary artery without angina pectoris; J44.9 Chronic obstructive pulmonary disease, unspecified; G47.33 Obstructive sleep apnea (adult) (pediatric); E66.01 Morbid (severe) obesity due to excess calories; Z68.41 Body mass index [BMI] 40.0-44.9, adult; F32.9 Major depressive disorder, single episode, unspecified; Z95.5 Presence of coronary angioplasty implant and graft; Z79.01 Long term (current) use of anticoagulants; Z79.4 Long term (current) use of insulin; Z82.49 Family history of ischemic heart disease and other diseases of the circulatory system; Z86.711 Personal history of pulmonary embolism; Z86.718 Personal history of other venous thrombosis and embolism; Z91.19 Patient's noncompliance with other medical treatment and regimen; Z95.810 Presence of automatic (implantable) cardiac defibrillator
CPT/HCPCS: 73630; 76937; 78315; 78999; 80048; 80053; 80202; 82565; 82948; 84520; 85025; 85027; 85651; 87040; 87070; 87075; 87077; 87147; 87186; 87205; 87493; 93926; 94660; 99281; 99283; 99285; A6021; A9503; J1815; J2543; J3370; J7030; J7050

== ENCOUNTER 2016-09-24 11:14 | Emergency (ER) | payer OTHER ==
[~2016-09-24] VITALS: Ht 185.4 cm; Wt 145.5 kg
[2016-09-24 12:58] LABS: HEMATOCRIT 39.9 % (38.0-50.0); MCHC 34.3 G/DL (30.0-36.0); MCV 84.5 FL (86-99); MEAN PLAT.VOLUME 10.7 uM^3 (9.0-12.4); PLATELET COUNT 87 K/uL (156-360); RBC DIS.WIDTH-CV 12.8 % (11.8-14.6); RBC DIS.WIDTH-SD 39.1 % (39-53); RED BLOOD COUNT 4.72 M/uL (4.00-5.50); WHITE BLOOD COUNT 7.6 K/uL (4.1-10.2)
[2016-09-24 13:09] LABS: CHLORIDE 106 mEq/L (99-109); POTASSIUM 3.9 mEq/L (3.7-5.4); SODIUM 137 mEq/L (136-147)
[2016-09-24 13:27] LABS: GLUCOSE 263 mg/dL (70-99)
[2016-09-24 13:29] LABS: ANION GAP 9 MEQ/L (2-14)
[2016-09-24 13:31] LABS: GFR ESTIMATE (CALCULATED) > 59 mL/min/
[2016-09-24 13:32] LABS: UREA NITROGEN (BUN) 12 mg/dL (9-23)
[2016-09-24] MEDS ORDERED: COUMADIN2.5 MG PO (15:05)
[2016-09-24] MEDS ORDERED: VANCOMYCIN HCL1 GM IV (15:26)
[2016-09-24 17:59] VITALS: BP 123/76
== END 2016-09-24 17:59 | disposition home or self-care (01) ==
LOC: EME 11:14
PROVIDERS: Physician Assistant Medical
DX: E11.621 Type 2 diabetes mellitus with foot ulcer (principal); L97.519 Non-pressure chronic ulcer of other part of right foot with unspecified severity; Z86.14 Personal history of Methicillin resistant Staphylococcus aureus infection; J44.9 Chronic obstructive pulmonary disease, unspecified; I11.0 Hypertensive heart disease with heart failure; I50.9 Heart failure, unspecified; Z86.718 Personal history of other venous thrombosis and embolism; Z86.711 Personal history of pulmonary embolism; Z95.810 Presence of automatic (implantable) cardiac defibrillator; Z79.4 Long term (current) use of insulin
CPT/HCPCS: 73630; 80048; 83605; 85027; 87040; J3370; J7040

== ENCOUNTER 2016-12-02 13:16 | Observation (INO) | payer OTHER ==
[~2016-12-02] VITALS: Ht 185.4 cm; Wt 155.0 kg
[~2016-12-02 13:16] MED LIST changes: -BACTROBAN OINTM22 GM TP; -DOXYCYCLINE MO100 MG PO; -MEDIHONEY44 ML TP; -ZESTRIL5 MG PO
[2016-12-02 14:00] LABS: HEMATOCRIT 41.9 % (38.0-50.0); MCH 28.8 PG (29.0-34.0); MCHC 33.9 G/DL (30.0-36.0); PLATELET COUNT 103 K/uL (156-360); RBC DIS.WIDTH-CV 12.9 % (11.8-14.6); RBC DIS.WIDTH-SD 39.5 % (39-53); RED BLOOD COUNT 4.93 M/uL (4.00-5.50); WHITE BLOOD COUNT 12.1 K/uL (4.1-10.2)
[2016-12-02 14:11] LABS: CHLORIDE 103 mEq/L (99-109); POTASSIUM 4.1 mEq/L (3.7-5.4); SODIUM 134 mEq/L (136-147)
[2016-12-02 14:13] LABS: GLUCOSE 139 mg/dL (70-99)
[2016-12-02 14:15] LABS: ANION GAP 10 MEQ/L (2-14)
[2016-12-02 14:17] LABS: GFR ESTIMATE (CALCULATED) 48 mL/min/
[2016-12-02 14:18] LABS: UREA NITROGEN (BUN) 25 mg/dL (9-23)
[2016-12-02 14:20] LABS: TROP-I INTERPRETATION NEGATIVE; TROPONIN-I 0.02 ng/mL (0.0-0.30)
[2016-12-02 16:48] LABS: TROP-I INTERPRETATION NEGATIVE; TROPONIN-I 0.02 ng/mL (0.0-0.30)
[2016-12-02] MEDS ORDERED: COLACE100 MG PO (17:27)
[2016-12-02] MEDS ORDERED: ZESTRIL5 MG PO (17:29)
[2016-12-02] MEDS ORDERED: COUMADIN5 MG PO (17:30)
[2016-12-02] MEDS ORDERED: DOXYCYCLINE MO100 MG PO (17:32)
[2016-12-02] MEDS ORDERED: BACTROBAN OINTM22 GM TP (17:32)
[2016-12-02] MEDS ORDERED: PROAIR HFA8.5 GM IH (17:33)
[2016-12-02] MEDS ORDERED: LO-DOSE ASPIRIN81 M1 PO (17:33)
[2016-12-02] MEDS ORDERED: SYMBICORT60 INHALAT IH (17:33)
[2016-12-02] MEDS ORDERED: PROVENTIL,2.5 MG/3 M IH (17:34)
[2016-12-02] MEDS ORDERED: MEDIHONEY44 ML TP (17:35)
[2016-12-02 19:26] LABS: INTER. NORMALIZED RATIO 1.3; PROTHROMBIN TIME 14.5 SEC (10.2-12.9)
[2016-12-02 19:28] LABS: PTT 38.2 SEC (25-37)
[2016-12-02 19:49] VITALS: BP 144/87
[2016-12-02 20:14] LABS: TOTAL BILIRUBIN 0.4 mg/dL (0.0-1.0)
[2016-12-02 20:16] LABS: ALKALINE PHOSPHATASE 64 IU/L (3-129)
[2016-12-02 20:18] LABS: DIRECT BILIRUBIN 0.1 mg/dL (0.0-0.3)
[2016-12-02 20:19] LABS: LIPASE 23 U/L (1.0-51.0)
[2016-12-02 22:01] LABS: METH RESISTANT S AUREUS PCR NEGATIVE (NEGATIVE)
[2016-12-02 22:02] LABS: PROBE CHECK PASS; SPECIMEN PROCESSING CONTROL PASS
[2016-12-02 22:39] LABS: POINT-OF-CARE METER ID UU13113700
[2016-12-02 23:32] VITALS: BP 115/70
[2016-12-02 23:58] LABS: TROP-I INTERPRETATION NEGATIVE; TROPONIN-I 0.02 ng/mL (0.0-0.30)
[2016-12-03 03:30] VITALS: BP 101/52
[2016-12-03 04:46] LABS: HEMATOCRIT 42.3 % (38.0-50.0); MCH 29.3 PG (29.0-34.0); MCHC 34.3 G/DL (30.0-36.0); MCV 85.5 FL (86-99); MEAN PLAT.VOLUME 11.1 uM^3 (9.0-12.4); PLATELET COUNT 98 K/uL (156-360); RBC DIS.WIDTH-SD 40.4 % (39-53); RED BLOOD COUNT 4.95 M/uL (4.00-5.50); WHITE BLOOD COUNT 7.3 K/uL (4.1-10.2)
[2016-12-03 04:53] LABS: INTER. NORMALIZED RATIO 1.4
[2016-12-03 05:10] LABS: TROP-I INTERPRETATION NEGATIVE; TROPONIN-I 0.02 ng/mL (0.0-0.30)
[2016-12-03 06:02] LABS: CHLORIDE 105 mEq/L (99-109); POTASSIUM 4.3 mEq/L (3.7-5.4); SODIUM 136 mEq/L (136-147)
[2016-12-03 06:05] LABS: ANION GAP 10 MEQ/L (2-14)
[2016-12-03 06:08] LABS: GFR ESTIMATE (CALCULATED) 56 mL/min/
[2016-12-03 06:09] LABS: UREA NITROGEN (BUN) 23 mg/dL (9-23)
[2016-12-03 06:15] LABS: GLUCOSE 253 mg/dL (70-99)
[2016-12-03 07:00] VITALS: BP 120/72
[2016-12-03 07:55] LABS: POINT-OF-CARE METER ID UU13113700
[2016-12-03 10:42] VITALS: BP 95/64
[2016-12-03] MEDS ORDERED: FUROSEMIDE40 MG PO (10:56)
[2016-12-03 13:02] LABS: POINT-OF-CARE METER ID UU13113700
== END 2016-12-03 13:25 | disposition home or self-care (01) ==
LOC: EME → EDBD 13:16 → 5WEST 18:13 → EDOF 18:13 → ENRESERV 18:15 → 5WEST 19:34
PROVIDERS: Emergency Medicine; Hospitalist
DX: R07.9 Chest pain, unspecified (principal); I13.10 Hypertensive heart and chronic kidney disease without heart failure, with stage 1 through stage 4 chronic kidney disease, or unspecified chronic kidney disease; E11.22 Type 2 diabetes mellitus with diabetic chronic kidney disease; N18.3 Chronic kidney disease, stage 3 (moderate); I50.22 Chronic systolic (congestive) heart failure; E66.01 Morbid (severe) obesity due to excess calories; Z68.42 Body mass index [BMI] 45.0-49.9, adult; I25.10 Atherosclerotic heart disease of native coronary artery without angina pectoris; E11.42 Type 2 diabetes mellitus with diabetic polyneuropathy; E11.621 Type 2 diabetes mellitus with foot ulcer; L97.519 Non-pressure chronic ulcer of other part of right foot with unspecified severity; E78.5 Hyperlipidemia, unspecified; I25.5 Ischemic cardiomyopathy; Z95.5 Presence of coronary angioplasty implant and graft; G47.33 Obstructive sleep apnea (adult) (pediatric); Z95.810 Presence of automatic (implantable) cardiac defibrillator; Z86.74 Personal history of sudden cardiac arrest; I25.2 Old myocardial infarction; J44.9 Chronic obstructive pulmonary disease, unspecified; J96.11 Chronic respiratory failure with hypoxia; Z99.81 Dependence on supplemental oxygen; Z86.718 Personal history of other venous thrombosis and embolism; Z87.01 Personal history of pneumonia (recurrent); Z86.14 Personal history of Methicillin resistant Staphylococcus aureus infection; Z82.49 Family history of ischemic heart disease and other diseases of the circulatory system; D69.6 Thrombocytopenia, unspecified; Z86.711 Personal history of pulmonary embolism; Z79.82 Long term (current) use of aspirin; Z79.4 Long term (current) use of insulin; I48.0 Paroxysmal atrial fibrillation; Z88.8 Allergy status to other drugs, medicaments and biological substances; Z91.09 Other allergy status, other than to drugs and biological substances
CPT/HCPCS: 71010; 78999; 80048; 80076; 82948; 83605; 83690; 84484; 85027; 85610; 85730; 87040; 87641; 93005; 94640; 99202; 99281; 99283; G0378; J1650; J1815

== ENCOUNTER → 2016-12-02 | Outpatient (CLI) | payer OTHER ==
[~2016-12-02] MED LIST changes: +BACTROBAN OINTM22 GM TP; +DOXYCYCLINE MO100 MG PO; +MEDIHONEY44 ML TP; +VANCOMYCIN HCL1 GM IV; +ZESTRIL5 MG PO
== END | disposition home or self-care (01) ==
LOC: NUC 09:09
DX: R93.7 Abnormal findings on diagnostic imaging of other parts of musculoskeletal system (principal); L89.890 Pressure ulcer of other site, unstageable; M86.471 Chronic osteomyelitis with draining sinus, right ankle and foot
CPT/HCPCS: 78315; A9503

== ENCOUNTER 2017-01-10 23:33 | Inpatient (IN) | payer OTHER ==
[~2017-01-10] VITALS: Ht 190.5 cm; Wt 154.5 kg
[~2017-01-10 23:33] MED LIST changes: +BACTROBAN OINTM22 GM TP; +DOXYCYCLINE MO100 MG PO; +MEDIHONEY44 ML TP; +ZESTRIL5 MG PO
[2017-01-10 23:56] LABS: EOSINOPHIL (%) 2.8 % (0-5); EOSINOPHIL COUNT 0.2 K/uL (0-0.3); HEMATOCRIT 41.1 % (38.0-50.0); IMMATURE GRANULOCYTE (%) 0.6 % (0.0-0.7); INSTRUMENT ABS NEUTROPHIL CT 4.4 K/uL; LYMPHOCYTE COUNT 1.7 K/uL (1.0-2.8); MCH 29.3 PG (29.0-34.0); MCHC 34.1 G/DL (30.0-36.0); MEAN PLAT.VOLUME 11.1 uM^3 (9.0-12.4); MONOCYTE (%) 9.2 % (3-12); MONOCYTE COUNT 0.7 K/uL (0-0.8); NEUTROPHIL COUNT 4.4 K/uL (1.8-6.4); PLATELET COUNT 98 K/uL (156-360); RBC DIS.WIDTH-CV 13.2 % (11.8-14.6); RBC DIS.WIDTH-SD 41.2 % (39-53); RED BLOOD COUNT 4.78 M/uL (4.00-5.50)
[2017-01-11 00:02] LABS: INTER. NORMALIZED RATIO 1.4; PROTHROMBIN TIME 15.7 SEC (10.2-12.9)
[2017-01-11 00:04] LABS: PTT 58.5 SEC (25-37)
[2017-01-11 00:12] LABS: CHLORIDE 104 mEq/L (99-109); POTASSIUM 3.8 mEq/L (3.7-5.4); SODIUM 136 mEq/L (136-147)
[2017-01-11 00:15] LABS: ANION GAP 11 MEQ/L (2-14)
[2017-01-11 00:16] LABS: TROP-I INTERPRETATION NEGATIVE; TROPONIN-I 0.03 ng/mL (0.0-0.30)
[2017-01-11 00:18] LABS: GFR ESTIMATE (CALCULATED) > 59 mL/min/
[2017-01-11 00:19] LABS: UREA NITROGEN (BUN) 10 mg/dL (9-23)
[2017-01-11 00:24] LABS: GLUCOSE 402 mg/dL (70-99)
[2017-01-11 02:53] LABS: POINT-OF-CARE METER ID UU13113702
[2017-01-11 05:31] VITALS: BP 144/77
[2017-01-11 05:47] LABS: POINT-OF-CARE METER ID UU13113717
[2017-01-11 08:00] VITALS: BP 128/81
[2017-01-11 08:10] LABS: POINT-OF-CARE METER ID UU13113717
[2017-01-11 10:13] LABS: POINT-OF-CARE METER ID UU13113717
[2017-01-11 11:56] VITALS: BP 145/83
[2017-01-11 12:12] LABS: POINT-OF-CARE METER ID UU13113717
[2017-01-11 13:21] LABS: TROP-I INTERPRETATION NEGATIVE; TROPONIN-I 0.03 ng/mL (0.0-0.30)
[2017-01-11 15:21] VITALS: BP 107/60
[2017-01-11 17:00] LABS: POINT-OF-CARE METER ID UU13113717
[2017-01-11 19:14] VITALS: BP 137/81
[2017-01-11 21:03] LABS: POINT-OF-CARE METER ID UU13113717
[2017-01-12 00:11] VITALS: BP 117/75
[2017-01-12 03:08] VITALS: BP 107/60
[2017-01-12 06:30] LABS: BASOPHIL COUNT 0.1 K/uL (0-0.1); EOSINOPHIL (%) 4.8 % (0-5); EOSINOPHIL COUNT 0.3 K/uL (0-0.3); HEMATOCRIT 40.4 % (38.0-50.0); IMMATURE GRANULOCYTE (%) 0.3 % (0.0-0.7); INSTRUMENT ABS NEUTROPHIL CT 3.5 K/uL; MCH 28.4 PG (29.0-34.0); MCHC 32.7 G/DL (30.0-36.0); MCV 86.9 FL (86-99); MEAN PLAT.VOLUME 10.5 uM^3 (9.0-12.4); MONOCYTE (%) 8.1 % (3-12); MONOCYTE COUNT 0.5 K/uL (0-0.8); NEUTROPHIL (%) 54.8 % (45-76); NEUTROPHIL COUNT 3.5 K/uL (1.8-6.4); PLATELET COUNT 94 K/uL (156-360); RBC DIS.WIDTH-CV 13.6 % (11.8-14.6); RBC DIS.WIDTH-SD 42.9 % (39-53); RED BLOOD COUNT 4.65 M/uL (4.00-5.50); WHITE BLOOD COUNT 6.5 K/uL (4.1-10.2)
[2017-01-12 07:36] LABS: ERTH.SED.RATE 29 MM/HR (0-20)
[2017-01-12 07:46] VITALS: BP 116/68
[2017-01-12 09:11] LABS: POINT-OF-CARE METER ID UU13113717
[2017-01-12 10:20] LABS: INTER. NORMALIZED RATIO 1.4; PROTHROMBIN TIME 16.5 SEC (10.2-12.9)
[2017-01-12 12:29] VITALS: BP 128/76
[2017-01-12 12:46] LABS: POINT-OF-CARE METER ID UU14174225
[2017-01-12 17:01] LABS: POINT-OF-CARE METER ID UU14174225
[2017-01-12 20:40] VITALS: BP 121/58
[2017-01-12 22:25] LABS: POINT-OF-CARE METER ID UU13113717
[2017-01-12 23:29] VITALS: BP 101/55
[2017-01-13 04:20] VITALS: BP 96/52
[2017-01-13 04:58] VITALS: BP 102/70
[2017-01-13 06:59] LABS: EOSINOPHIL (%) 3.4 % (0-5); EOSINOPHIL COUNT 0.2 K/uL (0-0.3); HEMATOCRIT 39.4 % (38.0-50.0); IMMATURE GRANULOCYTE (%) 0.5 % (0.0-0.7); INSTRUMENT ABS NEUTROPHIL CT 3.7 K/uL; LYMPHOCYTE COUNT 1.4 K/uL (1.0-2.8); MCH 28.4 PG (29.0-34.0); MCHC 32.7 G/DL (30.0-36.0); MCV 86.8 FL (86-99); MEAN PLAT.VOLUME 10.3 uM^3 (9.0-12.4); MONOCYTE (%) 8.2 % (3-12); MONOCYTE COUNT 0.5 K/uL (0-0.8); NEUTROPHIL COUNT 3.7 K/uL (1.8-6.4); PLATELET COUNT 89 K/uL (156-360); RBC DIS.WIDTH-CV 13.3 % (11.8-14.6); RBC DIS.WIDTH-SD 42.2 % (39-53); RED BLOOD COUNT 4.54 M/uL (4.00-5.50); WHITE BLOOD COUNT 5.9 K/uL (4.1-10.2)
[2017-01-13 07:27] LABS: INTER. NORMALIZED RATIO 1.4; PROTHROMBIN TIME 15.8 SEC (10.2-12.9)
[2017-01-13 07:35] VITALS: BP 130/81
[2017-01-13 07:59] LABS: ANION GAP ND MEQ/L (2-14); SAMPLE HEMOLYSIS CHECK 0; SAMPLE ICTERIC CHECK 0; SAMPLE LIPEMIA CHECK 0; TOTAL BILIRUBIN 0.5 MG/DL (0.0-1.0)
[2017-01-13 08:07] LABS: ALKALINE PHOSPHATASE 63 IU/L (3-129); GFR ESTIMATE (CALCULATED) > 59 mL/min/; GLUCOSE 251 mg/dL (70-99); UREA NITROGEN (BUN) 16 mg/dL (9-23)
[2017-01-13 09:01] LABS: CHLORIDE 105 MEQ/L (99-109); POTASSIUM 4.1 MEQ/L (3.7-5.4); SODIUM 136 MEQ/L (136-147)
[2017-01-13 11:40] LABS: POINT-OF-CARE METER ID UU14174225
[2017-01-13 15:24] VITALS: BP 123/70
[2017-01-13 16:53] LABS: POINT-OF-CARE METER ID UU13113717
[2017-01-13 20:11] LABS: POINT-OF-CARE METER ID UU13113675
[2017-01-13 23:45] LABS: POINT-OF-CARE METER ID UU13113717
[2017-01-14 00:07] VITALS: BP 110/63
[2017-01-14 04:06] VITALS: BP 110/53; BP 150/67
[2017-01-14 06:14] LABS: INTER. NORMALIZED RATIO 1.6; PROTHROMBIN TIME 18.8 SEC (10.2-12.9)
[2017-01-14 06:33] LABS: POINT-OF-CARE METER ID UU14208750
[2017-01-14 06:34] LABS: ALKALINE PHOSPHATASE 65 IU/L (3-129); ANION GAP 8 MEQ/L (2-14); CHLORIDE 107 MEQ/L (99-109); GFR ESTIMATE (CALCULATED) > 59 mL/min/; GLUCOSE 170 mg/dL (70-99); POTASSIUM 4.2 MEQ/L (3.7-5.4); SAMPLE HEMOLYSIS CHECK 1; SAMPLE ICTERIC CHECK 0; SAMPLE LIPEMIA CHECK 0; SODIUM 138 MEQ/L (136-147); TOTAL BILIRUBIN 0.6 MG/DL (0.0-1.0); UREA NITROGEN (BUN) 13 mg/dL (9-23)
[2017-01-14 07:30] VITALS: BP 131/82
[2017-01-14 07:54] LABS: EOSINOPHIL (%) 2.5 % (0-5); EOSINOPHIL COUNT 0.2 K/uL (0-0.3); HEMATOCRIT 37.7 % (38.0-50.0); IMMATURE GRANULOCYTE (%) 0.3 % (0.0-0.7); INSTRUMENT ABS NEUTROPHIL CT 5.8 K/uL; LYMPHOCYTE COUNT 1.2 K/uL (1.0-2.8); MCH 29.4 PG (29.0-34.0); MCHC 33.4 G/DL (30.0-36.0); MCV 88.1 FL (86-99); MEAN PLAT.VOLUME 11.3 uM^3 (9.0-12.4); MONOCYTE (%) 6.6 % (3-12); MONOCYTE COUNT 0.5 K/uL (0-0.8); NEUTROPHIL COUNT 5.8 K/uL (1.8-6.4); PLATELET COUNT 94 K/uL (156-360); RBC DIS.WIDTH-CV 13.4 % (11.8-14.6); RBC DIS.WIDTH-SD 42.6 % (39-53); RED BLOOD COUNT 4.28 M/uL (4.00-5.50); WHITE BLOOD COUNT 7.7 K/uL (4.1-10.2)
[2017-01-14 11:38] LABS: POINT-OF-CARE METER ID UU14162508; POINT-OF-CARE USER ID PUTDRM
[2017-01-14 16:30] VITALS: BP 108/59
[2017-01-14 16:54] LABS: POINT-OF-CARE METER ID UU14162508; POINT-OF-CARE USER ID PUTDRM
[2017-01-14 19:55] VITALS: BP 107/58
[2017-01-14 21:45] LABS: POINT-OF-CARE METER ID UU14208750
[2017-01-15 01:13] VITALS: BP 128/65
[2017-01-15 03:25] VITALS: BP 114/68
[2017-01-15 04:36] LABS: HEMATOCRIT 37.6 % (38.0-50.0); MCV 87.6 FL (86-99)
[2017-01-15 04:45] LABS: INTER. NORMALIZED RATIO 2.8; PROTHROMBIN TIME 32.2 SEC (10.2-12.9)
[2017-01-15 06:31] LABS: POINT-OF-CARE METER ID UU14162508
[2017-01-15 07:49] VITALS: BP 142/75
[2017-01-15 11:07] VITALS: BP 119/66
[2017-01-15 11:32] LABS: POINT-OF-CARE METER ID UU14162508
[2017-01-15 15:09] VITALS: BP 119/66
[2017-01-15 16:35] LABS: POINT-OF-CARE METER ID UU14162508
[2017-01-15 22:10] LABS: POINT-OF-CARE METER ID UU14162508
[2017-01-15 23:10] VITALS: BP 100/51
[2017-01-16 04:55] VITALS: BP 110/60
[2017-01-16 06:43] LABS: POINT-OF-CARE METER ID UU14208750
[2017-01-16 07:20] VITALS: BP 108/76
[2017-01-16 08:25] LABS: EOSINOPHIL (%) 1.6 % (0-5); EOSINOPHIL COUNT 0.1 K/uL (0-0.3); HEMATOCRIT 35.5 % (38.0-50.0); IMMATURE GRANULOCYTE (%) 0.3 % (0.0-0.7); INSTRUMENT ABS NEUTROPHIL CT 6.4 K/uL; LYMPHOCYTE COUNT 1.5 K/uL (1.0-2.8); MCH 28.6 PG (29.0-34.0); MCHC 32.7 G/DL (30.0-36.0); MCV 87.7 FL (86-99); MONOCYTE (%) 6.7 % (3-12); MONOCYTE COUNT 0.6 K/uL (0-0.8); NEUTROPHIL (%) 73.6 % (45-76); NEUTROPHIL COUNT 6.4 K/uL (1.8-6.4); PLATELET COUNT 107 K/uL (156-360); RBC DIS.WIDTH-CV 13.3 % (11.8-14.6); RBC DIS.WIDTH-SD 42.6 % (39-53); RED BLOOD COUNT 4.05 M/uL (4.00-5.50); WHITE BLOOD COUNT 8.7 K/uL (4.1-10.2)
[2017-01-16 08:32] LABS: INTER. NORMALIZED RATIO 2.9; PROTHROMBIN TIME 33.3 SEC (10.2-12.9)
[2017-01-16 08:54] LABS: ALKALINE PHOSPHATASE 65 IU/L (3-129); ANION GAP 7 MEQ/L (2-14); CHLORIDE 103 MEQ/L (99-109); GFR ESTIMATE (CALCULATED) > 59 mL/min/; GLUCOSE 141 mg/dL (70-99); POTASSIUM 3.9 MEQ/L (3.7-5.4); SAMPLE HEMOLYSIS CHECK 0; SAMPLE ICTERIC CHECK 0; SAMPLE LIPEMIA CHECK 0; SODIUM 139 MEQ/L (136-147); UREA NITROGEN (BUN) 12 mg/dL (9-23)
[2017-01-16 08:57] LABS: TOTAL BILIRUBIN 0.9 MG/DL (0.0-1.0)
[2017-01-16 11:10] VITALS: BP 152/90
[2017-01-16 11:37] LABS: POINT-OF-CARE METER ID UU14162508
[2017-01-16 16:29] VITALS: BP 134/61
[2017-01-16 17:28] LABS: POINT-OF-CARE METER ID UU14162508
[2017-01-16 19:35] VITALS: BP 130/67
[2017-01-16 21:39] LABS: POINT-OF-CARE METER ID UU14162508
[2017-01-16 23:25] VITALS: BP 113/62
[2017-01-17 03:00] VITALS: BP 113/72
[2017-01-17 06:39] LABS: POINT-OF-CARE METER ID UU14162508
[2017-01-17 07:00] VITALS: BP 138/77
[2017-01-17 07:13] LABS: INTER. NORMALIZED RATIO 2.6
[2017-01-17 11:53] LABS: POINT-OF-CARE METER ID UU14162508
[2017-01-17 16:06] VITALS: BP 128/87
[2017-01-17 17:28] LABS: POINT-OF-CARE METER ID UU14314084
[2017-01-17 23:53] VITALS: BP 125/82
[2017-01-18] VITALS (8 sets, daily range): BP systolic 0–152; BP diastolic 0–96
[2017-01-18 06:44] LABS: POINT-OF-CARE METER ID UU14314084
[2017-01-18 07:10] LABS: PROTHROMBIN TIME 34.1 SEC (10.2-12.9)
[2017-01-18 07:19] LABS: ANION GAP 7 MEQ/L (2-14); CHLORIDE 103 MEQ/L (99-109); GFR ESTIMATE (CALCULATED) > 59 mL/min/; POTASSIUM 4.4 MEQ/L (3.7-5.4); SAMPLE HEMOLYSIS CHECK 0; SAMPLE ICTERIC CHECK 0; SAMPLE LIPEMIA CHECK 0; SODIUM 140 MEQ/L (136-147)
[2017-01-18 07:20] LABS: GLUCOSE 243 mg/dL (70-99); UREA NITROGEN (BUN) 26 mg/dL (9-23)
[2017-01-18 08:52] LABS: BASE EXCESS 6.4 mEq/L (-3 to +3); BICARBONATE 32.3 mEq/L (22-26); CARBOXY HGB 2.2 % (0-5); METHEMOGLOBIN 1.3 % (0-1.5); PCO2 51 mm Hg (35-45); PO2 70 mm Hg (80-100); SITE RR; pH 7.41 (7.35-7.45)
[2017-01-18 08:53] LABS: COMMENTS - BLOOD GASES A+C+; DEVICE HHFNC; FI02 65 %; O2 FLOW 70 L/MIN; TOTAL RESP RATE 24 resp/min
[2017-01-18 12:59] LABS: POINT-OF-CARE METER ID UU14208751; POINT-OF-CARE USER ID 612031313
[2017-01-18 13:57] LABS: METH RESISTANT S AUREUS PCR NEGATIVE (NEGATIVE); PROBE CHECK PASS; SPECIMEN PROCESSING CONTROL PASS
[2017-01-18 22:23] LABS: POINT-OF-CARE METER ID UU14314083
[2017-01-19] VITALS (12 sets, daily range): BP systolic 112–166; BP diastolic 72–107
[2017-01-19 05:35] LABS: INTER. NORMALIZED RATIO 3.8; PROTHROMBIN TIME 44.1 SEC (10.2-12.9)
[2017-01-19 05:57] LABS: ANION GAP 6 MEQ/L (2-14); CHLORIDE 98 MEQ/L (99-109); GFR ESTIMATE (CALCULATED) > 59 mL/min/; GLUCOSE 361 mg/dL (70-99); POTASSIUM 4.7 MEQ/L (3.7-5.4); SAMPLE HEMOLYSIS CHECK 0; SAMPLE ICTERIC CHECK 0; SAMPLE LIPEMIA CHECK 0; SODIUM 137 MEQ/L (136-147); UREA NITROGEN (BUN) 28 mg/dL (9-23)
[2017-01-19 08:08] LABS: POINT-OF-CARE METER ID UU14314082
[2017-01-19 08:50] LABS: HEMATOCRIT 37.4 % (38.0-50.0); MCH 28.4 PG (29.0-34.0); MCHC 31.6 G/DL (30.0-36.0); MCV 89.9 FL (86-99); MEAN PLAT.VOLUME 11.3 uM^3 (9.0-12.4); RBC DIS.WIDTH-CV 13.3 % (11.8-14.6); RBC DIS.WIDTH-SD 43.9 % (39-53); RED BLOOD COUNT 4.16 M/uL (4.00-5.50); WHITE BLOOD COUNT 12.2 K/uL (4.1-10.2)
[2017-01-19 08:52] LABS: PLATELET COUNT 178 K/uL (156-360)
[2017-01-19 17:29] LABS: GLUCOSE 384 mg/dL (70-99)
[2017-01-20] VITALS (7 sets, daily range): BP systolic 135–152; BP diastolic 65–99
[2017-01-20 04:59] LABS: HEMATOCRIT 36.2 % (38.0-50.0); MCH 29.1 PG (29.0-34.0); MCHC 32.6 G/DL (30.0-36.0); MCV 89.4 FL (86-99); MEAN PLAT.VOLUME 11.1 uM^3 (9.0-12.4); PLATELET COUNT 178 K/uL (156-360); RBC DIS.WIDTH-SD 42.5 % (39-53); RED BLOOD COUNT 4.05 M/uL (4.00-5.50); WHITE BLOOD COUNT 12.3 K/uL (4.1-10.2)
[2017-01-20 05:15] LABS: CHLORIDE 97 mEq/L (99-109); POTASSIUM 4.7 mEq/L (3.7-5.4); SODIUM 137 mEq/L (136-147)
[2017-01-20 05:16] LABS: GLUCOSE 327 mg/dL (70-99)
[2017-01-20 05:18] LABS: ANION GAP 11 MEQ/L (2-14)
[2017-01-20 05:20] LABS: GFR ESTIMATE (CALCULATED) > 59 mL/min/
[2017-01-20 05:21] LABS: UREA NITROGEN (BUN) 32 mg/dL (9-23)
[2017-01-20 06:15] LABS: INTER. NORMALIZED RATIO 3.5; PROTHROMBIN TIME 40.3 SEC (10.2-12.9)
[2017-01-20 08:07] LABS: POINT-OF-CARE METER ID UU13113803
[2017-01-20 12:39] LABS: POINT-OF-CARE METER ID UU13113803
[2017-01-20 17:52] LABS: POINT-OF-CARE METER ID UU13113717
[2017-01-20 19:58] LABS: POINT-OF-CARE METER ID UU14174225
[2017-01-20 21:20] LABS: POINT-OF-CARE METER ID UU13113717
[2017-01-21 01:11] VITALS: BP 142/86
[2017-01-21 05:05] VITALS: BP 129/72
[2017-01-21 06:58] LABS: HEMATOCRIT 38.2 % (38.0-50.0); MCH 28.5 PG (29.0-34.0); MCHC 32.2 G/DL (30.0-36.0); MCV 88.6 FL (86-99); MEAN PLAT.VOLUME 10.6 uM^3 (9.0-12.4); PLATELET COUNT 210 K/uL (156-360); RBC DIS.WIDTH-CV 12.9 % (11.8-14.6); RBC DIS.WIDTH-SD 42.4 % (39-53); RED BLOOD COUNT 4.31 M/uL (4.00-5.50); WHITE BLOOD COUNT 10.9 K/uL (4.1-10.2)
[2017-01-21 07:00] VITALS: BP 131/87
[2017-01-21 07:21] LABS: ANION GAP 4 MEQ/L (2-14); CHLORIDE 95 MEQ/L (99-109); GFR ESTIMATE (CALCULATED) > 59 mL/min/; GLUCOSE 336 mg/dL (70-99); POTASSIUM 4.9 MEQ/L (3.7-5.4); SAMPLE HEMOLYSIS CHECK 0; SAMPLE ICTERIC CHECK 0; SAMPLE LIPEMIA CHECK 0; SODIUM 135 MEQ/L (136-147); UREA NITROGEN (BUN) 38 mg/dL (9-23)
[2017-01-21 07:34] LABS: INTER. NORMALIZED RATIO 2.8
[2017-01-21 11:19] LABS: POINT-OF-CARE METER ID UU14314082
[2017-01-21 11:19] LABS: POINT-OF-CARE METER ID UU14314082
[2017-01-21 11:21] LABS: POINT-OF-CARE METER ID UU14208751
[2017-01-21 11:50] LABS: POINT-OF-CARE METER ID UU13113717
[2017-01-21 12:15] VITALS: BP 128/70
[2017-01-21 16:35] VITALS: BP 132/68
[2017-01-21 17:33] LABS: POINT-OF-CARE METER ID UU14174225
[2017-01-21 19:40] VITALS: BP 130/69
[2017-01-21 21:11] LABS: POINT-OF-CARE METER ID UU14174225
[2017-01-22 00:22] VITALS: BP 113/59
[2017-01-22 04:00] VITALS: BP 150/86
[2017-01-22 07:00] LABS: PROTHROMBIN TIME 23.3 SEC (10.2-12.9)
[2017-01-22 07:24] VITALS: BP 133/84
[2017-01-22 08:19] LABS: POINT-OF-CARE METER ID UU13113717
[2017-01-22 12:32] LABS: POINT-OF-CARE METER ID UU13113717
[2017-01-22 16:32] VITALS: BP 132/76
[2017-01-22 17:23] LABS: POINT-OF-CARE METER ID UU14174225
[2017-01-22 20:52] LABS: POINT-OF-CARE METER ID UU13113717
[2017-01-22 23:51] VITALS: BP 120/69
[2017-01-23 06:58] VITALS: BP 147/85
[2017-01-23 07:25] LABS: POINT-OF-CARE METER ID UU13113717
[2017-01-23] MEDS ORDERED: PROVENTIL,2.5 MG/3 M IH (09:45)
[2017-01-23] MEDS ORDERED: COUMADIN3 MG PO (09:48)
[2017-01-23] MEDS ORDERED: FLORASTOR250 MG PO (09:50)
[2017-01-23] MEDS ORDERED: AUGMENTIN500 MG PO (09:54)
[2017-01-23] MEDS ORDERED: AZITHROMYCIN500 M1 PO (09:55)
[2017-01-23] MEDS ORDERED: PREDNISONE20 MG PO (09:57)
[2017-01-23 10:06] LABS: INTER. NORMALIZED RATIO 1.8; PROTHROMBIN TIME 20.7 SEC (10.2-12.9)
[2017-01-23] MEDS ORDERED: FLONASE16 G1 BOTH NARES (10:49)
[2017-01-23] MEDS ORDERED: ADVAIR 250/501 DISK IH (10:51)
[2017-01-23] MEDS ORDERED: SPIRIVA1 INHALATI IH (10:51)
[2017-01-23 11:09] LABS: POINT-OF-CARE METER ID UU13113717
[2017-01-23] MEDS ORDERED: MUCINEX1200 MG PO (11:46)
[2017-01-23 16:16] LABS: POINT-OF-CARE METER ID UU13113717
[2017-01-23 21:59] LABS: GLUCOSE 368 mg/dL (70-99)
[2017-01-24 00:20] VITALS: BP 122/60
[2017-01-24 06:29] LABS: INTER. NORMALIZED RATIO 1.9; PROTHROMBIN TIME 21.3 SEC (10.2-12.9)
[2017-01-24 07:01] VITALS: BP 179/67
[2017-01-24 07:22] LABS: POINT-OF-CARE METER ID UU13113717
[2017-01-24 11:05] LABS: POINT-OF-CARE METER ID UU13113717
[2017-01-25 14:14] LABS: POINT-OF-CARE METER ID UU13113717
== END 2017-01-24 14:19 | disposition home or self-care (01) | DRG 616 ==
LOC: EME → DELPENDDIS → EDBD 23:33 → EME 23:33 → 5SOUTH 01-11 03:19 → EDOF 01-11 03:19 → 4WEST 01-11 03:19 → ENRESERV 01-11 03:22 → 5SOUTH 01-11 05:13 → ENRESERV 01-13 21:26 → 2EAST 01-13 23:43 → ENRESERV 01-18 10:23 → 4WEST 01-18 12:05 → ENRESERV 01-20 09:27 → 5SOUTH 01-20 14:43 → ENPENDDIS 01-24 → 5SOUTH 01-24 14:19
PROVIDERS: Emergency Medicine; Family Medicine; Hospitalist; Internal Medicine; Physician Assistant Medical
PROC: 0Y6R0Z0 Detachment at Right 2nd Toe, Complete, Open Approach (ICD-10-PCS; principal; 2017-01-13)
DX: E11.69 Type 2 diabetes mellitus with other specified complication (principal); M86.171 Other acute osteomyelitis, right ankle and foot; J18.9 Pneumonia, unspecified organism; J44.0 Chronic obstructive pulmonary disease with (acute) lower respiratory infection; Y95 Nosocomial condition; J44.1 Chronic obstructive pulmonary disease with (acute) exacerbation; J96.21 Acute and chronic respiratory failure with hypoxia; J96.02 Acute respiratory failure with hypercapnia; I13.0 Hypertensive heart and chronic kidney disease with heart failure and stage 1 through stage 4 chronic kidney disease, or unspecified chronic kidney disease; I50.22 Chronic systolic (congestive) heart failure; E11.22 Type 2 diabetes mellitus with diabetic chronic kidney disease; N18.3 Chronic kidney disease, stage 3 (moderate); E11.65 Type 2 diabetes mellitus with hyperglycemia; T38.0X5A Adverse effect of glucocorticoids and synthetic analogues, initial encounter; E11.628 Type 2 diabetes mellitus with other skin complications; L03.115 Cellulitis of right lower limb; L03.031 Cellulitis of right toe; E11.621 Type 2 diabetes mellitus with foot ulcer; L97.509 Non-pressure chronic ulcer of other part of unspecified foot with unspecified severity; G47.33 Obstructive sleep apnea (adult) (pediatric); Z99.81 Dependence on supplemental oxygen; E11.42 Type 2 diabetes mellitus with diabetic polyneuropathy; E66.01 Morbid (severe) obesity due to excess calories; Z68.42 Body mass index [BMI] 45.0-49.9, adult; D69.6 Thrombocytopenia, unspecified; I71.2 Thoracic aortic aneurysm, without rupture; S91.104A Unspecified open wound of right lesser toe(s) without damage to nail, initial encounter; W22.8XXA Striking against or struck by other objects, initial encounter; Y92.002 Bathroom of unspecified non-institutional (private) residence as the place of occurrence of the external cause; I48.0 Paroxysmal atrial fibrillation; I25.119 Atherosclerotic heart disease of native coronary artery with unspecified angina pectoris; I25.5 Ischemic cardiomyopathy; I48.2 Chronic atrial fibrillation; E78.5 Hyperlipidemia, unspecified; K21.9 Gastro-esophageal reflux disease without esophagitis; I25.2 Old myocardial infarction; F33.9 Major depressive disorder, recurrent, unspecified; F60.7 Dependent personality disorder; M10.9 Gout, unspecified; R21 Rash and other nonspecific skin eruption; Z86.74 Personal history of sudden cardiac arrest; Z86.711 Personal history of pulmonary embolism; Z86.718 Personal history of other venous thrombosis and embolism; Z95.810 Presence of automatic (implantable) cardiac defibrillator; Z95.1 Presence of aortocoronary bypass graft; Z95.5 Presence of coronary angioplasty implant and graft; Z91.14 Patient's other noncompliance with medication regimen; Z91.19 Patient's noncompliance with other medical treatment and regimen; Z79.01 Long term (current) use of anticoagulants; Z79.4 Long term (current) use of insulin; Z86.14 Personal history of Methicillin resistant Staphylococcus aureus infection; Z89.411 Acquired absence of right great toe; Z87.891 Personal history of nicotine dependence; Z59.9 Problem related to housing and economic circumstances, unspecified; Z82.49 Family history of ischemic heart disease and other diseases of the circulatory system; K59.00 Constipation, unspecified; Z91.040 Latex allergy status
CPT/HCPCS: 36600; 71010; 71020; 71275; 73630; 73700; 80048; 80053; 80202; 82803; 82948; 83605; 83735; 84484; 84999; 85014; 85018; 85025; 85027; 85610; 85651; 85730; 86140; 87040; 87070; 87075; 87205; 87641; 88305; 88311; 93005; 93971; 94010; 94640; 94640 76; 94660; 94668; 94760; 94799; 97530 GO; 99202; 99281; 99285; J0690; J0692; J0696; J1650; J1815; J1940; J1956; J2250; J2543; J2930; J3370; J7030; J7050; J7512; Q0177; S0020

== ENCOUNTER 2017-03-23 07:19 | Day surgery (SDC) | payer OTHER ==
[~2017-03-23] VITALS: Ht 185.4 cm; Wt 149.6 kg
[~2017-03-23 07:19] MED LIST changes: +AUGMENTIN500 MG PO; +AZITHROMYCIN500 M1 PO; +COUMADIN3 MG PO; +FLONASE16 G1 BOTH NARES; +FLORASTOR250 MG PO; +MUCINEX1200 MG PO; -NOVOLIN,HU100 UNITS/ SC; +OXYCODONE HCL10 MG PO; +PROZOSIN PO; +SPIRIVA18 MCG IH
[2017-03-23 07:53] VITALS: BP 118/63
[2017-03-23 09:01] LABS: AMYLASE 26 IU/L (1-118)
[2017-03-23 09:06] LABS: LIPASE 54 U/L (1.0-51.0)
== END 2017-03-23 09:50 | disposition home or self-care (01) ==
LOC: SDC 07:19
PROVIDERS: Surgery
PROC: 0FJ4XZZ Inspection of Gallbladder, External Approach (ICD-10-PCS; principal; 2017-03-23)
DX: K80.20 Calculus of gallbladder without cholecystitis without obstruction (principal); Z53.09 Procedure and treatment not carried out because of other contraindication; E11.65 Type 2 diabetes mellitus with hyperglycemia
CPT/HCPCS: 82150; 82948; 83690; 87641; J0330; J0690; J1815; J2250; J3010

== ENCOUNTER 2017-03-31 09:31 | Inpatient (IN) | payer OTHER ==
[~2017-03-31] VITALS: Ht 188 cm; Wt 154.2 kg
[2017-03-31 10:00] LABS: HEMATOCRIT 44.4 % (38.0-50.0); HEMOGLOBIN 15.5 G/DL (12.5-16.6); MCH 29.6 PG (29.0-34.0); MCHC 34.9 G/DL (30.0-36.0); MCV 84.9 FL (86-99); PLATELET COUNT 74 K/uL (156-360); RBC DIS.WIDTH-CV 13.3 % (11.8-14.6); RBC DIS.WIDTH-SD 40.9 % (39-53); RED BLOOD COUNT 5.23 M/uL (4.00-5.50); WHITE BLOOD COUNT 7.8 K/uL (4.1-10.2)
[2017-03-31 10:21] LABS: CHLORIDE 103 mEq/L (99-109); POTASSIUM 4.1 mEq/L (3.7-5.4)
[2017-03-31 10:22] LABS: SODIUM 136 mEq/L (136-147)
[2017-03-31 10:23] LABS: GLUCOSE 312 mg/dL (70-99)
[2017-03-31 10:26] LABS: SERUM ETHYL ALCOHOL < 10 mg/dL
[2017-03-31 10:27] LABS: CREATININE 1.3 mg/dL (0.6-1.3); GFR ESTIMATE (CALCULATED) > 59 mL/min/ (58.99-99999)
[2017-03-31 10:28] LABS: UREA NITROGEN (BUN) 14 mg/dL (9-23)
[2017-03-31 10:41] LABS: AMPHETAMINE NEGATIVE (500 ng/mL); BARBITURATES NEGATIVE (200 ng/mL); BENZODIAZEPINES NEGATIVE (150 ng/mL); BUPRENORPHINE NEGATIVE (10 ng/mL); COCAINE NEGATIVE (150 ng/mL); METHADONE NEGATIVE (200 ng/mL); METHAMPHETAMINE NEGATIVE (500 ng/mL); OPIATES (MORPHINE) NEGATIVE (100 ng/mL); OXYCODONE NEGATIVE (100 ng/mL); PHENCYCLIDINE NEGATIVE (25 ng/mL); PROPOXYPHENE NEGATIVE (300 ng/mL); THC CANNABINOIDS NEGATIVE (50 ng/mL); TRICYCLIC ANTIDEPRESSANTS NEGATIVE (300 ng/mL)
[2017-03-31 13:44] VITALS: BP 130/78
[2017-03-31] MEDS ORDERED: FENOFIBRATE160 M1 PO (14:19)
[2017-03-31] MEDS ORDERED: GABAPENTIN800 MG PO (14:21)
[2017-03-31] MEDS ORDERED: POTASSIUM CHLO10 ME4 PO (14:22)
[2017-03-31] MEDS ORDERED: CLOPIDOGREL75 MG PO (14:23)
[2017-03-31] MEDS ORDERED: MONTELUKAST SOD10 MG PO (14:28)
[2017-03-31] MEDS ORDERED: CARVEDILOL12.5 MG PO (14:29)
[2017-03-31] MEDS ORDERED: SPIRONOLACTONE25 MG PO (14:30)
[2017-03-31] MEDS ORDERED: SIMVASTATIN10 MG PO (14:31)
[2017-03-31] MEDS ORDERED: FUROSEMIDE40 MG PO (14:31)
[2017-03-31] MEDS ORDERED: SPIRIVA1 INHALATI IH (14:32)
[2017-03-31] MEDS ORDERED: OXYCODONE-APAP1 EACH PO (14:34)
[2017-03-31] MEDS ORDERED: IMDUR30 MG PO (14:37)
[2017-03-31] MEDS ORDERED: XANAX0.25 MG PO (14:39)
[2017-03-31] MEDS ORDERED: NOVOLIN,HU100 UNITS/ SC ×2 (14:40→14:41)
[2017-03-31] MEDS ORDERED: PRAZOSIN HCL1 MG PO (14:42)
[2017-03-31] MEDS ORDERED: COLACE100 MG PO (14:44)
[2017-03-31] MEDS ORDERED: LO-DOSE ASPIRIN81 M1 PO (14:44)
[2017-03-31] MEDS ORDERED: MULTIPLE VITAM1 EACH PO (14:45)
[2017-03-31] MEDS ORDERED: LISINOPRIL2.5 MG PO (14:47)
[2017-03-31] MEDS ORDERED: DESYREL 150 MG150 MG PO (14:47)
[2017-03-31] MEDS ORDERED: NITROSTAT0.4 MG SL (14:48)
[2017-03-31] MEDS ORDERED: CORDARONE200 MG PO (14:49)
[2017-03-31] MEDS ORDERED: ELIQUIS5 MG PO (14:49)
[2017-03-31] MEDS ORDERED: FOLIC ACID1 MG PO (14:50)
[2017-03-31 15:45] VITALS: BP 173/82
[2017-04-01 08:03] VITALS: BP 98/53
[2017-04-01 15:21] VITALS: BP 146/90
[2017-04-02 08:12] VITALS: BP 151/85
[2017-04-02 11:33] LABS: CHLORIDE 103 MEQ/L (99-109); CREATININE 1.4 MG/DL (0.6-1.3); GFR ESTIMATE (CALCULATED) 56 mL/min/ (58.99-99999); GLUCOSE 386 mg/dL (70-99); POTASSIUM 4.4 MEQ/L (3.7-5.4); SODIUM 133 MEQ/L (136-147); UREA NITROGEN (BUN) 20 mg/dL (9-23)
[2017-04-02 15:36] VITALS: BP 141/87
[2017-04-03 07:53] VITALS: BP 146/74
[2017-04-03 15:46] VITALS: BP 103/63
[2017-04-04 07:33] VITALS: BP 133/75
[2017-04-04] MEDS ORDERED: BUPROPION HCL150 M2 PO (10:21)
== END 2017-04-04 12:57 | disposition home or self-care (01) | DRG 885 ==
LOC: EME 09:31 → 1WEST 12:24 → EDOF 12:24 → ENRESERV 13:24 → 1WEST 13:30
PROVIDERS: Hospitalist; Psychiatry & Neurology Psychiatry
DX: F33.1 Major depressive disorder, recurrent, moderate (principal); I11.0 Hypertensive heart disease with heart failure; F60.7 Dependent personality disorder; R45.851 Suicidal ideations; F41.9 Anxiety disorder, unspecified; E11.649 Type 2 diabetes mellitus with hypoglycemia without coma; E66.9 Obesity, unspecified; I25.10 Atherosclerotic heart disease of native coronary artery without angina pectoris; I50.9 Heart failure, unspecified; Z86.718 Personal history of other venous thrombosis and embolism; Z79.82 Long term (current) use of aspirin; Z95.5 Presence of coronary angioplasty implant and graft; Z79.4 Long term (current) use of insulin; Z95.1 Presence of aortocoronary bypass graft; Z68.41 Body mass index [BMI] 40.0-44.9, adult; Z89.411 Acquired absence of right great toe
CPT/HCPCS: 80048; 82948; 85027; 90839; 94640; 94640 76; 94660; 97150 GO; 97165 GO; 99281; 99284; G0480; J1815; J7042

== ENCOUNTER 2017-04-17 01:02 | Emergency (ER) | payer OTHER ==
[~2017-04-17] VITALS: Ht 188 cm; Wt 153.3 kg
[~2017-04-17 01:02] MED LIST changes: +BUPROPION HCL150 M2 PO; +CLOPIDOGREL75 MG PO; +MONTELUKAST SOD10 MG PO; +MULTIPLE VITAM1 EACH PO; +NOVOLIN,HU100 UNITS/ SC
[2017-04-17 01:27] LABS: HEMOGLOBIN 13.9 G/DL (12.5-16.6); MCH 29.5 PG (29.0-34.0); MCHC 34.8 G/DL (30.0-36.0); MCV 84.9 FL (86-99); PLATELET COUNT 71 K/uL (156-360); RBC DIS.WIDTH-CV 13.2 % (11.8-14.6); RBC DIS.WIDTH-SD 40.9 % (39-53); RED BLOOD COUNT 4.71 M/uL (4.00-5.50); WHITE BLOOD COUNT 7.3 K/uL (4.1-10.2)
[2017-04-17 01:37] LABS: CHLORIDE 105 mEq/L (99-109); POTASSIUM 3.8 mEq/L (3.7-5.4); SODIUM 137 mEq/L (136-147)
[2017-04-17 01:39] LABS: GLUCOSE 236 mg/dL (70-99)
[2017-04-17 01:43] LABS: CREATININE 1.2 mg/dL (0.6-1.3); GFR ESTIMATE (CALCULATED) > 59 mL/min/ (58.99-99999)
[2017-04-17 01:44] LABS: UREA NITROGEN (BUN) 15 mg/dL (9-23)
[2017-04-17 01:52] LABS: TROP-I INTERPRETATION NEGATIVE; TROPONIN-I 0.03 ng/mL (0.0-0.30)
[2017-04-17 03:08] LABS: SERUM ETHYL ALCOHOL < 10 mg/dL
[2017-04-17 03:25] LABS: AMPHETAMINE NEGATIVE (500 ng/mL); BARBITURATES NEGATIVE (200 ng/mL); BENZODIAZEPINES NEGATIVE (150 ng/mL); BUPRENORPHINE NEGATIVE (10 ng/mL); COCAINE NEGATIVE (150 ng/mL); METHADONE NEGATIVE (200 ng/mL); METHAMPHETAMINE NEGATIVE (500 ng/mL); OPIATES (MORPHINE) NEGATIVE (100 ng/mL); OXYCODONE NEGATIVE (100 ng/mL); PHENCYCLIDINE NEGATIVE (25 ng/mL); PROPOXYPHENE NEGATIVE (300 ng/mL); THC CANNABINOIDS NEGATIVE (50 ng/mL); TRICYCLIC ANTIDEPRESSANTS NEGATIVE (300 ng/mL)
[2017-04-17 04:24] VITALS: BP 134/94
== END 2017-04-17 04:44 | disposition home or self-care (01) ==
LOC: EME 01:02
PROVIDERS: Emergency Medicine
DX: R07.89 Other chest pain (principal); F33.1 Major depressive disorder, recurrent, moderate; F60.7 Dependent personality disorder; I50.9 Heart failure, unspecified; E11.9 Type 2 diabetes mellitus without complications; Z79.4 Long term (current) use of insulin; I48.91 Unspecified atrial fibrillation; I25.2 Old myocardial infarction; Z95.1 Presence of aortocoronary bypass graft; Z86.718 Personal history of other venous thrombosis and embolism; Z79.82 Long term (current) use of aspirin; J44.9 Chronic obstructive pulmonary disease, unspecified; R56.9 Unspecified convulsions; Z89.411 Acquired absence of right great toe; Z91.040 Latex allergy status
CPT/HCPCS: 71046; 80048; 84484; 85027; 90839; 93005; 99281; 99284; G0480

== ENCOUNTER 2017-06-26 03:04 | Inpatient (IN) | payer OTHER ==
[2017-06-26] VITALS (14 sets, daily range): BP systolic 98–127; BP diastolic 65–81
[~2017-06-26] VITALS: Ht 182.9 cm; Wt 148.2 kg
[2017-06-26 03:31] LABS: HEMATOCRIT 48.6 % (38.0-50.0); HEMOGLOBIN 16.2 G/DL (12.5-16.6); MCH 29.8 PG (29.0-34.0); MCHC 33.3 G/DL (30.0-36.0); NRBC (%) 0.1 /100 WBC (0-0); PLATELET COUNT 73 K/uL (156-360); RBC DIS.WIDTH-CV 13.2 % (11.8-14.6); RED BLOOD COUNT 5.43 M/uL (4.00-5.50); WHITE BLOOD COUNT 18.1 K/uL (4.1-10.2)
[2017-06-26 03:39] LABS: MCV 89.5 FL (86-99)
[2017-06-26 03:45] LABS: CHLORIDE 103 mEq/L (99-109); POTASSIUM 4.5 mEq/L (3.7-5.4); SODIUM 138 mEq/L (136-147)
[2017-06-26 03:46] LABS: GLUCOSE 322 mg/dL (70-99)
[2017-06-26 03:50] LABS: CREATININE 1.4 mg/dL (0.6-1.3); GFR ESTIMATE (CALCULATED) 56 mL/min/ (58.99-99999)
[2017-06-26 03:51] LABS: UREA NITROGEN (BUN) 23 mg/dL (9-23)
[2017-06-26 03:55] LABS: TROP-I INTERPRETATION NEGATIVE; TROPONIN-I 0.03 ng/mL (0.0-0.30)
[2017-06-26 04:16] LABS: BASE EXCESS -4.5 mEq/L (-3 to +3); BICARBONATE 28.7 mEq/L (22-26); CARBOXY HGB 1.9 % (0-5); METHEMOGLOBIN 0.6 % (0-1.5); PO2 65 mm Hg (80-100)
[2017-06-26 04:17] LABS: COMMENTS - BLOOD GASES C+; DEVICE VENT; FI02 100 %; MECHANICAL RATE 20 resp/min; MODE AC; PCO2 99 mm Hg (35-45); PEEP 20 CM/H20; SITE RR; TIDAL VOLUME 450 ML; TOTAL RESP RATE 20 resp/min; pH 7.07 (7.35-7.45)
[2017-06-26 05:58] LABS: BASE EXCESS -5.1 mEq/L (-3 to +3); CARBOXY HGB 1.6 % (0-5); METHEMOGLOBIN 1.1 % (0-1.5)
[2017-06-26 05:59] LABS: COMMENTS - BLOOD GASES C+; DEVICE VENT; FI02 100 %; MECHANICAL RATE 20 resp/min; MODE AC; PCO2 60 mm Hg (35-45); PEEP 20 CM/H20; PO2 314 mm Hg (80-100); SITE RR; TIDAL VOLUME 500 ML; TOTAL RESP RATE 28 resp/min; pH 7.21 (7.35-7.45)
[2017-06-26 12:04] LABS: CREATINE KINASE 102 IU/L (1-294); TRIGLYCERIDES 361 MG/DL (Normal: <150)
[2017-06-26 14:01] LABS: BASE EXCESS -0.7 mEq/L (-3 to +3); BICARBONATE 27.8 mEq/L (22-26); CARBOXY HGB 1.9 % (0-5); METHEMOGLOBIN 1.4 % (0-1.5); PCO2 62 mm Hg (35-45)
[2017-06-26 14:02] LABS: COMMENTS - BLOOD GASES A+C+; DEVICE VENT; FI02 100 %; MECHANICAL RATE 16 resp/min; MODE ACVC+; PEEP 12 CM/H20; PO2 108 mm Hg (80-100); SITE LR; TIDAL VOLUME 600 ML; TOTAL RESP RATE 17 resp/min
[2017-06-26 14:03] LABS: pH 7.26 (7.35-7.45)
[2017-06-26 14:09] LABS: HIGH-SENS C-REACTIVE PROTEIN 3.68 MG/DL (0.02-0.20)
[2017-06-26 14:22] LABS: LACTATE DEHYDROGENASE 298 IU/L (20-246)
[2017-06-27] VITALS (24 sets, daily range): BP systolic 16–131; BP diastolic 57–71
[2017-06-27 05:19] LABS: CHLORIDE 103 mEq/L (99-109); POTASSIUM 4.8 mEq/L (3.7-5.4); SODIUM 138 mEq/L (136-147)
[2017-06-27 05:24] LABS: CREATININE 1.7 mg/dL (0.6-1.3); GFR ESTIMATE (CALCULATED) 45 mL/min/ (58.99-99999)
[2017-06-27 05:25] LABS: HEMATOCRIT 38.2 % (38.0-50.0); MCH 29.8 PG (29.0-34.0); MCHC 33.5 G/DL (30.0-36.0); MCV 88.8 FL (86-99); RBC DIS.WIDTH-SD 42.5 % (39-53); WHITE BLOOD COUNT 9.2 K/uL (4.1-10.2)
[2017-06-27 05:27] LABS: CREATINE KINASE 55 IU/L (1-294); GLUCOSE 442 mg/dL (70-99); UREA NITROGEN (BUN) 37 mg/dL (9-23)
[2017-06-27 05:28] LABS: HEMOGLOBIN 12.8 G/DL (12.5-16.6)
[2017-06-27 06:34] LABS: PLAT.SUFFICIENCY DECREASED
[2017-06-27 07:04] LABS: IMM.PLATELET FRACTION 7.2 (1-7)
[2017-06-27 07:07] LABS: PLATELET COUNT 51 K/uL (156-360)
[2017-06-27 18:21] LABS: CREATINE KINASE 49 IU/L (1-294)
[2017-06-27 18:25] LABS: GLUCOSE 512 mg/dL (70-99)
[2017-06-28] VITALS (24 sets, daily range): BP systolic 105–176; BP diastolic 55–110
[2017-06-28 05:45] LABS: CREATINE KINASE 44 IU/L (1-294)
[2017-06-28 09:22] LABS: BASE EXCESS 4.1 mEq/L (-3 to +3); BICARBONATE 29.2 mEq/L (22-26); CARBOXY HGB 2.1 % (0-5); METHEMOGLOBIN 1.4 % (0-1.5); PCO2 45 mm Hg (35-45); PO2 77 mm Hg (80-100); SITE LR; pH 7.42 (7.35-7.45)
[2017-06-28 09:23] LABS: COMMENTS - BLOOD GASES A+C+; DEVICE VENT; FI02 50 %; MECHANICAL RATE 20 resp/min; MODE ACVC+; PEEP 12 CM/H20; TIDAL VOLUME 600 ML; TOTAL RESP RATE 20 resp/min
[2017-06-28 10:21] LABS: BASOPHIL (%) 0.1 % (0-1); EOSINOPHIL (%) 0 % (0-5); HEMATOCRIT 35.6 % (38.0-50.0); HEMOGLOBIN 11.6 G/DL (12.5-16.6); IMMATURE GRANULOCYTE (%) 0.8 % (0.0-0.7); LYMPHOCYTE (%) 8.9 % (15-42); LYMPHOCYTE COUNT 0.9 K/uL (1.0-2.8); MCH 29.2 PG (29.0-34.0); MCHC 32.6 G/DL (30.0-36.0); MCV 89.7 FL (86-99); MONOCYTE (%) 5.9 % (3-12); MONOCYTE COUNT 0.6 K/uL (0-0.8); NEUTROPHIL (%) 84.3 % (45-76); NRBC (%) 0.2 /100 WBC (0-0); RBC DIS.WIDTH-SD 42.5 % (39-53); RED BLOOD COUNT 3.97 M/uL (4.00-5.50); WHITE BLOOD COUNT 10.6 K/uL (4.1-10.2)
[2017-06-28 10:46] LABS: PLAT.SUFFICIENCY DECREASED
[2017-06-28 10:53] LABS: PLATELET COUNT 70 K/uL (156-360)
[2017-06-28 11:00] LABS: HEMATOCRIT 36.2 % (38.0-50.0); HEMOGLOBIN 11.9 G/DL (12.5-16.6); MCH 29.9 PG (29.0-34.0); MCHC 32.9 G/DL (30.0-36.0); NRBC (%) 0.5 /100 WBC (0-0); RBC DIS.WIDTH-CV 13.2 % (11.8-14.6); RBC DIS.WIDTH-SD 43.2 % (39-53); RED BLOOD COUNT 3.98 M/uL (4.00-5.50); WHITE BLOOD COUNT 10.6 K/uL (4.1-10.2)
[2017-06-28 11:07] LABS: PLATELET COUNT 71 K/uL (156-360)
[2017-06-28 11:12] LABS: LACTATE DEHYDROGENASE 271 IU/L (20-246)
[2017-06-28 11:28] LABS: ABS NEUTROPHIL COUNT 8.9; ANISOCYTOSIS 1+; ATYPICAL LYMPHOCYTE 1.8 %; BAND NEUTROPHILS 4.5 % (0-8.0); EOSINOPHIL ABS CT 0; LYMPHOCYTES 7.1 % (15.0-45.0); MONOCYTES 7.1 % (0-9.0); PLAT.SUFFICIENCY DECREASED; POLYCHROMASIA 1+; SEG.NEUTROPHILS 79.5 % (46.0-76.0)
[2017-06-28 11:37] LABS: ALKALINE PHOSPHATASE 44 IU/L (3-129); ALT (GPT) 18 IU/L (3-49); AST (GOT) 19 IU/L (2-34); CHLORIDE 107 MEQ/L (99-109); CREATININE 1.6 MG/DL (0.6-1.3); GFR ESTIMATE (CALCULATED) 48 mL/min/ (58.99-99999); GLUCOSE 302 mg/dL (70-99); HIGH-SENS C-REACTIVE PROTEIN 4.52 MG/DL (0.02-0.20); MAGNESIUM 2.4 mg/dl (1.3-2.7); PHOSPHORUS 2.8 mg/dL (2.5-4.9); POTASSIUM 4.7 MEQ/L (3.7-5.4); SODIUM 142 MEQ/L (136-147); TOTAL BILIRUBIN 0.8 MG/DL (0.0-1.0); TOTAL PROTEIN 6.3 G/DL (6.4-8.3); UREA NITROGEN (BUN) 52 mg/dL (9-23)
[2017-06-28 13:52] LABS: HEMOGLOBIN A1c (GLYCOHEMOGLOB) 9.8 % (Below 5.7)
[2017-06-28 14:46] LABS: BASE EXCESS 4.2 mEq/L (-3 to +3); BICARBONATE 29.2 mEq/L (22-26); CARBOXY HGB 2.4 % (0-5); COMMENTS - BLOOD GASES A+C+; DEVICE VENT; FI02 50 %; METHEMOGLOBIN 1.5 % (0-1.5); MODE SPONT; PCO2 44 mm Hg (35-45); PEEP 5 CM/H20; PO2 54 mm Hg (80-100); PRES. SUPPORT 12 CM/H2O; SITE LR; TOTAL RESP RATE 19 resp/min; pH 7.43 (7.35-7.45)
[2017-06-29] VITALS (21 sets, daily range): BP systolic 118–153; BP diastolic 79–99
[2017-06-29 06:17] LABS: ALBUMIN 3.4 G/DL (3.2-4.8); ALKALINE PHOSPHATASE 54 IU/L (3-129); ALT (GPT) 20 IU/L (3-49); AST (GOT) ND IU/L (2-34); CHLORIDE 112 MEQ/L (99-109); CREATININE 1.2 MG/DL (0.6-1.3); GFR ESTIMATE (CALCULATED) > 59 mL/min/ (58.99-99999); GLUCOSE 170 mg/dL (70-99); MAGNESIUM 2.6 mg/dl (1.3-2.7); SODIUM 145 MEQ/L (136-147); TOTAL BILIRUBIN 1.1 MG/DL (0.0-1.0); TOTAL PROTEIN 7.1 G/DL (6.4-8.3); UREA NITROGEN (BUN) 45 mg/dL (9-23)
[2017-06-29 06:18] LABS: POTASSIUM ND MEQ/L (3.7-5.4)
[2017-06-29 06:50] LABS: BASOPHIL (%) 0.2 % (0-1); EOSINOPHIL (%) 0 % (0-5); HEMATOCRIT 42.9 % (38.0-50.0); HEMOGLOBIN 13.5 G/DL (12.5-16.6); IMMATURE GRANULOCYTE (%) 0.9 % (0.0-0.7); LYMPHOCYTE (%) 10.9 % (15-42); LYMPHOCYTE COUNT 1.2 K/uL (1.0-2.8); MCH 28.8 PG (29.0-34.0); MCHC 31.5 G/DL (30.0-36.0); MCV 91.5 FL (86-99); MONOCYTE (%) 7.5 % (3-12); MONOCYTE COUNT 0.8 K/uL (0-0.8); NEUTROPHIL (%) 80.5 % (45-76); NEUTROPHIL COUNT 8.5 K/uL (1.8-6.4); NRBC (%) 0.2 /100 WBC (0-0); RBC DIS.WIDTH-CV 13.1 % (11.8-14.6); RBC DIS.WIDTH-SD 43.8 % (39-53); RED BLOOD COUNT 4.69 M/uL (4.00-5.50); WHITE BLOOD COUNT 10.6 K/uL (4.1-10.2)
[2017-06-29 07:15] LABS: PLAT.SUFFICIENCY DECREASED
[2017-06-29 07:18] LABS: PLATELET COUNT 95 K/uL (156-360)
[2017-06-29 08:31] LABS: POTASSIUM 4.9 MEQ/L (3.7-5.4)
[2017-06-29 08:37] LABS: NO-CHARGE AST (GOT) 19 IU/L (15-37)
[2017-06-30] VITALS (12 sets, daily range): BP systolic 107–139; BP diastolic 66–83
[2017-06-30 04:34] LABS: BASOPHIL (%) 0.1 % (0-1); EOSINOPHIL (%) 0 % (0-5); HEMATOCRIT 38.3 % (38.0-50.0); HEMOGLOBIN 12.7 G/DL (12.5-16.6); IMMATURE GRANULOCYTE (%) 0.8 % (0.0-0.7); LYMPHOCYTE (%) 8.1 % (15-42); MCH 29.7 PG (29.0-34.0); MCHC 33.2 G/DL (30.0-36.0); MCV 89.7 FL (86-99); MONOCYTE (%) 8.3 % (3-12); NEUTROPHIL (%) 82.7 % (45-76); NRBC (%) 0.2 /100 WBC (0-0); PLATELET COUNT 85 K/uL (156-360); RBC DIS.WIDTH-CV 12.8 % (11.8-14.6); RBC DIS.WIDTH-SD 41.9 % (39-53); RED BLOOD COUNT 4.27 M/uL (4.00-5.50); WHITE BLOOD COUNT 12.1 K/uL (4.1-10.2)
[2017-06-30 04:49] LABS: ALBUMIN 3.2 g/dL (3.2-4.8); CHLORIDE 111 mEq/L (99-109); POTASSIUM 4.2 mEq/L (3.7-5.4); SODIUM 149 mEq/L (136-147)
[2017-06-30 04:50] LABS: MAGNESIUM 2.5 mg/dL (1.3-2.7)
[2017-06-30 04:51] LABS: TOTAL PROTEIN 6.1 g/dL (6.4-8.3)
[2017-06-30 04:52] LABS: GLUCOSE 113 mg/dL (70-99)
[2017-06-30 04:53] LABS: TOTAL BILIRUBIN 1.3 mg/dL (0.0-1.0)
[2017-06-30 04:55] LABS: ALKALINE PHOSPHATASE 48 IU/L (3-129); CREATININE 1.1 mg/dL (0.6-1.3); GFR ESTIMATE (CALCULATED) > 59 mL/min/ (58.99-99999); PHOSPHORUS 2.5 mg/dL (2.5-4.9)
[2017-06-30 04:56] LABS: AST (GOT) 12 IU/L (2-34); UREA NITROGEN (BUN) 36 mg/dL (9-23)
[2017-06-30 04:58] LABS: ALT (GPT) 16 IU/L (3-49); CREATINE KINASE 62 IU/L (1-294)
[2017-06-30] MEDS ORDERED: WELLBUTRIN SR200 MG PO (10:09)
[2017-06-30] MEDS ORDERED: ADVAIR 250/501 DISK IH (10:10)
[2017-06-30] MEDS ORDERED: VENTOLIN HFA18 GM IH (10:10)
[2017-07-01] VITALS (23 sets, daily range): BP systolic 91–209; BP diastolic 66–788
[2017-07-01 05:11] LABS: BASOPHIL (%) 0.1 % (0-1); EOSINOPHIL (%) 0 % (0-5); HEMATOCRIT 40.8 % (38.0-50.0); HEMOGLOBIN 12.7 G/DL (12.5-16.6); IMMATURE GRANULOCYTE (%) 0.9 % (0.0-0.7); LYMPHOCYTE (%) 15.5 % (15-42); LYMPHOCYTE COUNT 1.4 K/uL (1.0-2.8); MCH 28.8 PG (29.0-34.0); MCHC 31.1 G/DL (30.0-36.0); MCV 92.5 FL (86-99); MONOCYTE (%) 6.2 % (3-12); MONOCYTE COUNT 0.6 K/uL (0-0.8); NEUTROPHIL (%) 77.3 % (45-76); NEUTROPHIL COUNT 7.2 K/uL (1.8-6.4); NRBC (%) 0.3 /100 WBC (0-0); PLATELET COUNT 77 K/uL (156-360); RBC DIS.WIDTH-CV 12.9 % (11.8-14.6); RED BLOOD COUNT 4.41 M/uL (4.00-5.50); WHITE BLOOD COUNT 9.3 K/uL (4.1-10.2)
[2017-07-01 06:22] LABS: ALKALINE PHOSPHATASE 44 IU/L (3-129); ALT (GPT) 10 IU/L (3-49); AST (GOT) 12 IU/L (2-34); CHLORIDE 114 MEQ/L (99-109); CREATINE KINASE 73 IU/L (1-294); CREATININE 1.2 MG/DL (0.6-1.3); GFR ESTIMATE (CALCULATED) > 59 mL/min/ (58.99-99999); GLUCOSE 165 mg/dL (70-99); MAGNESIUM 2.8 mg/dl (1.3-2.7); PHOSPHORUS 2.6 mg/dL (2.5-4.9); POTASSIUM 4.4 MEQ/L (3.7-5.4); SODIUM 150 MEQ/L (136-147); UREA NITROGEN (BUN) 36 mg/dL (9-23)
[2017-07-01 18:22] LABS: CHLORIDE 107 MEQ/L (99-109); SODIUM 145 MEQ/L (136-147)
[2017-07-01 18:36] LABS: CREATININE 1.4 MG/DL (0.6-1.3); GFR ESTIMATE (CALCULATED) 56 mL/min/ (58.99-99999); UREA NITROGEN (BUN) 36 mg/dL (9-23)
[2017-07-01 18:38] LABS: GLUCOSE 315 mg/dL (70-99)
[2017-07-01 19:59] LABS: HSV-2 IgG Antibody <0.90 Index (<0.90)
[2017-07-02] VITALS (24 sets, daily range): BP systolic 70–135; BP diastolic 49–95
[2017-07-02 03:49] LABS: BASOPHIL (%) 0.2 % (0-1); EOSINOPHIL (%) 1.1 % (0-5); EOSINOPHIL COUNT 0.1 K/uL (0-0.3); HEMATOCRIT 38.3 % (38.0-50.0); HEMOGLOBIN 12.2 G/DL (12.5-16.6); IMMATURE GRANULOCYTE (%) 1.2 % (0.0-0.7); LYMPHOCYTE (%) 15.6 % (15-42); LYMPHOCYTE COUNT 1.5 K/uL (1.0-2.8); MCH 29.8 PG (29.0-34.0); MCHC 31.9 G/DL (30.0-36.0); MCV 93.6 FL (86-99); MONOCYTE (%) 5.7 % (3-12); MONOCYTE COUNT 0.6 K/uL (0-0.8); NEUTROPHIL (%) 76.2 % (45-76); NEUTROPHIL COUNT 7.3 K/uL (1.8-6.4); NRBC (%) 0.3 /100 WBC (0-0); PLATELET COUNT 67 K/uL (156-360); RBC DIS.WIDTH-CV 13.1 % (11.8-14.6); RBC DIS.WIDTH-SD 44.7 % (39-53); RED BLOOD COUNT 4.09 M/uL (4.00-5.50); WHITE BLOOD COUNT 9.6 K/uL (4.1-10.2)
[2017-07-02 04:01] LABS: CHLORIDE 108 mEq/L (99-109); POTASSIUM 4.4 mEq/L (3.7-5.4); SODIUM 144 mEq/L (136-147)
[2017-07-02 04:02] LABS: MAGNESIUM 2.6 mg/dL (1.3-2.7)
[2017-07-02 04:04] LABS: CHLORIDE 109 mEq/L (99-109); GLUCOSE 290 mg/dL (70-99); POTASSIUM 4.5 mEq/L (3.7-5.4); SODIUM 145 mEq/L (136-147); TOTAL PROTEIN 5.8 g/dL (6.4-8.3)
[2017-07-02 04:05] LABS: GLUCOSE 286 mg/dL (70-99)
[2017-07-02 04:07] LABS: ALKALINE PHOSPHATASE 56 IU/L (3-129)
[2017-07-02 04:08] LABS: CREATININE 1.5 mg/dL (0.6-1.3); GFR ESTIMATE (CALCULATED) 51 mL/min/ (58.99-99999)
[2017-07-02 04:09] LABS: CREATININE 1.5 mg/dL (0.6-1.3); GFR ESTIMATE (CALCULATED) 51 mL/min/ (58.99-99999); UREA NITROGEN (BUN) 44 mg/dL (9-23)
[2017-07-02 04:10] LABS: UREA NITROGEN (BUN) 41 mg/dL (9-23)
[2017-07-02 04:12] LABS: ALT (GPT) 72 IU/L (3-49); AST (GOT) 58 IU/L (2-34); CREATINE KINASE 504 IU/L (1-294); PHOSPHORUS 3.8 mg/dL (2.5-4.9)
[2017-07-02 11:53] LABS: BASE EXCESS 4.6 mEq/L (-3 to +3); BICARBONATE 29.8 mEq/L (22-26); CARBOXY HGB 2.1 % (0-5); COMMENTS - BLOOD GASES A+C+; DEVICE 840 PB; METHEMOGLOBIN 1.5 % (0-1.5); O2 FLOW 60 L/MIN; PCO2 46 mm Hg (35-45); PO2 45 mm Hg (80-100); SITE RR; pH 7.42 (7.35-7.45)
[2017-07-02 11:54] LABS: FI02 100 %; INSPIRATION TIME 1 seconds; MECHANICAL RATE 20 resp/min; MODE AC VC+; PEEP 10 CM/H20; TIDAL VOLUME 600 ML; TOTAL RESP RATE 20 resp/min
[2017-07-02 15:38] LABS: BASE EXCESS 0.1 mEq/L (-3 to +3); BICARBONATE 25.4 mEq/L (22-26); CARBOXY HGB 2.3 % (0-5); METHEMOGLOBIN 1.4 % (0-1.5); PCO2 43 mm Hg (35-45); pH 7.38 (7.35-7.45)
[2017-07-02 15:39] LABS: COMMENTS - BLOOD GASES A+C+; DEVICE VENT; FI02 100 %; INSPIRATION TIME 0.8 seconds; MECHANICAL RATE 15 resp/min; MODE BILEVEL; PEEP 0 CM/H20; PO2 55 mm Hg (80-100); PRES. SUPPORT 28 CM/H2O; SITE RR; TOTAL RESP RATE 18 resp/min
[2017-07-02 17:18] LABS: CHLORIDE 108 MEQ/L (99-109); CREATININE 2.2 MG/DL (0.6-1.3); GFR ESTIMATE (CALCULATED) 33 mL/min/ (58.99-99999); GLUCOSE 275 mg/dL (70-99); MAGNESIUM 2.4 mg/dl (1.3-2.7); PHOSPHORUS 3.9 mg/dL (2.5-4.9); POTASSIUM 4.2 MEQ/L (3.7-5.4); SODIUM 145 MEQ/L (136-147); UREA NITROGEN (BUN) 49 mg/dL (9-23)
[2017-07-03] VITALS (15 sets, daily range): BP systolic 91–130; BP diastolic 62–74
[2017-07-03 05:39] LABS: BASOPHIL (%) 0.1 % (0-1); EOSINOPHIL (%) 0.5 % (0-5); EOSINOPHIL COUNT 0.1 K/uL (0-0.3); HEMATOCRIT 34.1 % (38.0-50.0); HEMOGLOBIN 10.8 G/DL (12.5-16.6); IMMATURE GRANULOCYTE (%) 1.2 % (0.0-0.7); LYMPHOCYTE (%) 16.1 % (15-42); LYMPHOCYTE COUNT 1.5 K/uL (1.0-2.8); MCH 29.5 PG (29.0-34.0); MCHC 31.7 G/DL (30.0-36.0); MCV 93.2 FL (86-99); MONOCYTE (%) 4.8 % (3-12); MONOCYTE COUNT 0.5 K/uL (0-0.8); NEUTROPHIL (%) 77.3 % (45-76); NEUTROPHIL COUNT 7.4 K/uL (1.8-6.4); NRBC (%) 0.2 /100 WBC (0-0); PLATELET COUNT 55 K/uL (156-360); RBC DIS.WIDTH-CV 13.2 % (11.8-14.6); RBC DIS.WIDTH-SD 44.9 % (39-53); RED BLOOD COUNT 3.66 M/uL (4.00-5.50); WHITE BLOOD COUNT 9.5 K/uL (4.1-10.2)
[2017-07-03 06:17] LABS: CHLORIDE 109 MEQ/L (99-109); CREATININE 2.4 MG/DL (0.6-1.3); GFR ESTIMATE (CALCULATED) 30 mL/min/ (58.99-99999); GLUCOSE 326 mg/dL (70-99); POTASSIUM 4.2 MEQ/L (3.7-5.4); SODIUM 145 MEQ/L (136-147); UREA NITROGEN (BUN) 66 mg/dL (9-23)
[2017-07-03 07:10] LABS: ALBUMIN 2.5 G/DL (3.2-4.8); ALKALINE PHOSPHATASE 44 IU/L (3-129); MAGNESIUM 2.5 mg/dl (1.3-2.7); PHOSPHORUS 3.6 mg/dL (2.5-4.9); TOTAL PROTEIN 5.3 G/DL (6.4-8.3)
[2017-07-03 07:20] LABS: ALT (GPT) 86 IU/L (3-49); AST (GOT) 66 IU/L (2-34); CREATINE KINASE 500 IU/L (1-294)
[2017-07-03 09:50] LABS: BASE EXCESS 3.4 mEq/L (-3 to +3); BICARBONATE 26.5 mEq/L (22-26); CARBOXY HGB 1.2 % (0-5); METHEMOGLOBIN 1.1 % (0-1.5)
[2017-07-03 09:52] LABS: COMMENTS - BLOOD GASES NAC+; DEVICE VENT; FI02 80 %; INSPIRATION TIME 0.8 seconds; MECHANICAL RATE 15 resp/min; PCO2 34 mm Hg (35-45); PO2 254 mm Hg (80-100); SITE LR; TOTAL RESP RATE 15 resp/min
[2017-07-03 09:53] LABS: MODE BILEVEL-APRV 28/0; PEEP 0 CM/H20
[2017-07-03 11:25] LABS: BASE EXCESS 3.2 mEq/L (-3 to +3); BICARBONATE 26.9 mEq/L (22-26); CARBOXY HGB 1.4 % (0-5); METHEMOGLOBIN 1.2 % (0-1.5); PCO2 37 mm Hg (35-45); pH 7.47 (7.35-7.45)
[2017-07-03 11:26] LABS: COMMENTS - BLOOD GASES NAC+; DEVICE VENT; FI02 50 %; INSPIRATION TIME 0.8 seconds; MECHANICAL RATE 15 resp/min; PO2 109 mm Hg (80-100); SITE LR; TOTAL RESP RATE 15 resp/min
[2017-07-03 11:27] LABS: MODE BILEVEL-APRV 26/0; PEEP 0 CM/H20; PRESSURE CONTROL VENTILATION 26 CM H20
[2017-07-04] VITALS (17 sets, daily range): BP systolic 96–152; BP diastolic 52–86
[2017-07-04 05:35] LABS: BASOPHIL (%) 0 % (0-1); EOSINOPHIL (%) 1.5 % (0-5); EOSINOPHIL COUNT 0.1 K/uL (0-0.3); HEMATOCRIT 33.2 % (38.0-50.0); HEMOGLOBIN 10.4 G/DL (12.5-16.6); IMMATURE GRANULOCYTE (%) 1.2 % (0.0-0.7); LYMPHOCYTE (%) 14.3 % (15-42); LYMPHOCYTE COUNT 1.1 K/uL (1.0-2.8); MCH 29.6 PG (29.0-34.0); MCHC 31.3 G/DL (30.0-36.0); MCV 94.6 FL (86-99); MONOCYTE (%) 5.5 % (3-12); MONOCYTE COUNT 0.4 K/uL (0-0.8); NEUTROPHIL (%) 77.5 % (45-76); NEUTROPHIL COUNT 6.1 K/uL (1.8-6.4); NRBC (%) 0.3 /100 WBC (0-0); PLATELET COUNT 55 K/uL (156-360); RBC DIS.WIDTH-CV 13.4 % (11.8-14.6); RBC DIS.WIDTH-SD 45.7 % (39-53); RED BLOOD COUNT 3.51 M/uL (4.00-5.50); WHITE BLOOD COUNT 7.8 K/uL (4.1-10.2)
[2017-07-04 06:13] LABS: ALBUMIN 2.6 G/DL (3.2-4.8); ALKALINE PHOSPHATASE 44 IU/L (3-129); ALT (GPT) 73 IU/L (3-49); AST (GOT) 44 IU/L (2-34); CHLORIDE 112 MEQ/L (99-109); GLUCOSE 300 mg/dL (70-99); MAGNESIUM 2.8 mg/dl (1.3-2.7); PHOSPHORUS 2.6 mg/dL (2.5-4.9); POTASSIUM 4.1 MEQ/L (3.7-5.4); SODIUM 147 MEQ/L (136-147); TOTAL PROTEIN 5.5 G/DL (6.4-8.3); UREA NITROGEN (BUN) 61 mg/dL (9-23)
[2017-07-04 06:15] LABS: CREATININE 1.7 MG/DL (0.6-1.3); GFR ESTIMATE (CALCULATED) 45 mL/min/ (58.99-99999); TOTAL BILIRUBIN 0.7 MG/DL (0.0-1.0)
[2017-07-04 14:35] LABS: BASE EXCESS 4.2 mEq/L (-3 to +3); BICARBONATE 27.1 mEq/L (22-26); CARBOXY HGB 2.1 % (0-5); METHEMOGLOBIN 1.1 % (0-1.5); PCO2 34 mm Hg (35-45); pH 7.51 (7.35-7.45)
[2017-07-04 14:36] LABS: COMMENTS - BLOOD GASES NAC+; DEVICE VENT; FI02 45 %; PO2 79 mm Hg (80-100); SITE LR
[2017-07-04 14:37] LABS: INSPIRATION TIME 0.8 seconds; MECHANICAL RATE 15 resp/min; MODE BILEVEL-APRV 25/0; PEEP 0 CM/H20; PRESSURE CONTROL VENTILATION 25 CM H20; TOTAL RESP RATE 22 resp/min
[2017-07-05] VITALS (24 sets, daily range): BP systolic 103–141; BP diastolic 58–95
[2017-07-05 05:53] LABS: ALBUMIN 2.3 G/DL (3.2-4.8); ALKALINE PHOSPHATASE 40 IU/L (3-129); ALT (GPT) 122 IU/L (3-49); CHLORIDE 114 MEQ/L (99-109); CREATININE 1.5 MG/DL (0.6-1.3); GFR ESTIMATE (CALCULATED) 51 mL/min/ (58.99-99999); GLUCOSE 289 mg/dL (70-99); MAGNESIUM 2.6 mg/dl (1.3-2.7); SODIUM 148 MEQ/L (136-147); TOTAL BILIRUBIN 0.8 MG/DL (0.0-1.0); TOTAL PROTEIN 5.6 G/DL (6.4-8.3); UREA NITROGEN (BUN) 52 mg/dL (9-23)
[2017-07-05 05:54] LABS: AST (GOT) 119 IU/L (2-34); PHOSPHORUS 3.6 mg/dL (2.5-4.9)
[2017-07-05 18:06] LABS: BASOPHIL (%) 0.1 % (0-1); EOSINOPHIL (%) 1.5 % (0-5); EOSINOPHIL COUNT 0.2 K/uL (0-0.3); HEMATOCRIT 34.5 % (38.0-50.0); HEMOGLOBIN 10.7 G/DL (12.5-16.6); IMMATURE GRANULOCYTE (%) 1.7 % (0.0-0.7); LYMPHOCYTE (%) 13.3 % (15-42); LYMPHOCYTE COUNT 1.6 K/uL (1.0-2.8); MCH 29.6 PG (29.0-34.0); MCV 95.6 FL (86-99); MONOCYTE (%) 6.7 % (3-12); MONOCYTE COUNT 0.8 K/uL (0-0.8); NEUTROPHIL (%) 76.7 % (45-76); NEUTROPHIL COUNT 9.4 K/uL (1.8-6.4); NRBC (%) 0.6 /100 WBC (0-0); PLATELET COUNT 65 K/uL (156-360); RBC DIS.WIDTH-CV 13.8 % (11.8-14.6); RBC DIS.WIDTH-SD 47.8 % (39-53); RED BLOOD COUNT 3.61 M/uL (4.00-5.50); WHITE BLOOD COUNT 12.3 K/uL (4.1-10.2)
[2017-07-06] VITALS (23 sets, daily range): BP systolic 93–166; BP diastolic 58–108
[2017-07-06 05:33] LABS: HEMATOCRIT 35.7 % (38.0-50.0); HEMOGLOBIN 10.5 G/DL (12.5-16.6); MCH 28.8 PG (29.0-34.0); MCHC 29.4 G/DL (30.0-36.0); MCV 98.1 FL (86-99); NRBC (%) 0.6 /100 WBC (0-0); PLATELET COUNT 79 K/uL (156-360); RBC DIS.WIDTH-CV 13.8 % (11.8-14.6); RBC DIS.WIDTH-SD 48.8 % (39-53); RED BLOOD COUNT 3.64 M/uL (4.00-5.50); WHITE BLOOD COUNT 10.9 K/uL (4.1-10.2)
[2017-07-06 06:02] LABS: CHLORIDE 113 MEQ/L (99-109); CREATININE 1.6 MG/DL (0.6-1.3); GFR ESTIMATE (CALCULATED) 48 mL/min/ (58.99-99999); GLUCOSE 265 mg/dL (70-99); POTASSIUM 4.6 MEQ/L (3.7-5.4); SODIUM 148 MEQ/L (136-147); UREA NITROGEN (BUN) 49 mg/dL (9-23)
[2017-07-07] VITALS (19 sets, daily range): BP systolic 81–141; BP diastolic 60–83
[2017-07-07 11:51] LABS: DEVICE PB 840; FI02 60 %; MECHANICAL RATE 15 resp/min; MODE BILEVEL; SITE LR; TOTAL RESP RATE 27 resp/min; pH 7.47 (7.35-7.45)
[2017-07-07 11:52] LABS: BASE EXCESS 1.3 mEq/L (-3 to +3); BICARBONATE 24.7 mEq/L (22-26); CARBOXY HGB 1.5 % (0-5); COMMENTS - BLOOD GASES A+C+; METHEMOGLOBIN 0.7 % (0-1.5); O2 SATURATION (CALCULATED) 97.6 % (95-99); PCO2 34 mm Hg (35-45); PO2 77 mm Hg (80-100)
[2017-07-07 13:37] LABS: INTER. NORMALIZED RATIO 2.1
[2017-07-07 13:40] LABS: PTT 60.1 SEC (25-37)
[2017-07-07 14:04] LABS: HIGH-SENS C-REACTIVE PROTEIN > 8.00 MG/DL (0.02-0.20)
[2017-07-08] VITALS (18 sets, daily range): BP systolic 120–158; BP diastolic 63–101
[2017-07-08 05:32] LABS: BASOPHIL (%) 0.1 % (0-1); EOSINOPHIL (%) 2.8 % (0-5); EOSINOPHIL COUNT 0.3 K/uL (0-0.3); HEMATOCRIT 31.5 % (38.0-50.0); HEMOGLOBIN 9.6 G/DL (12.5-16.6); IMMATURE GRANULOCYTE (%) 1.1 % (0.0-0.7); LYMPHOCYTE (%) 10.1 % (15-42); LYMPHOCYTE COUNT 1.2 K/uL (1.0-2.8); MCH 29.6 PG (29.0-34.0); MCHC 30.5 G/DL (30.0-36.0); MCV 97.2 FL (86-99); MONOCYTE (%) 5.4 % (3-12); MONOCYTE COUNT 0.6 K/uL (0-0.8); NEUTROPHIL (%) 80.5 % (45-76); NEUTROPHIL COUNT 9.3 K/uL (1.8-6.4); NRBC (%) 0.5 /100 WBC (0-0); PLATELET COUNT 70 K/uL (156-360); RBC DIS.WIDTH-CV 14.6 % (11.8-14.6); RBC DIS.WIDTH-SD 49.3 % (39-53); RED BLOOD COUNT 3.24 M/uL (4.00-5.50); WHITE BLOOD COUNT 11.6 K/uL (4.1-10.2)
[2017-07-08 06:01] LABS: ALBUMIN 2.8 G/DL (3.2-4.8); ALKALINE PHOSPHATASE 51 IU/L (3-129); ALT (GPT) 50 IU/L (3-49); CHLORIDE 112 MEQ/L (99-109); CREATININE 1.5 MG/DL (0.6-1.3); GFR ESTIMATE (CALCULATED) 51 mL/min/ (58.99-99999); MAGNESIUM 2.9 mg/dl (1.3-2.7); POTASSIUM 3.8 MEQ/L (3.7-5.4); SODIUM 148 MEQ/L (136-147); TOTAL BILIRUBIN 0.8 MG/DL (0.0-1.0); TOTAL PROTEIN 6.2 G/DL (6.4-8.3); UREA NITROGEN (BUN) 67 mg/dL (9-23)
[2017-07-08 06:02] LABS: AST (GOT) 41 IU/L (2-34); GLUCOSE 99 mg/dL (70-99); PHOSPHORUS 4.9 mg/dL (2.5-4.9)
[2017-07-08 06:27] LABS: HIGH-SENS C-REACTIVE PROTEIN > 8.00 MG/DL (0.02-0.20)
[2017-07-08 14:20] LABS: C4 COMPLEMENT 31 MG/DL (10-40); IMMUNOGLOBULIN G 1416 MG/DL (650-1600); IMMUNOGLOBULIN M 121 MG/DL (50-300)
[2017-07-09] VITALS (23 sets, daily range): BP systolic 122–199; BP diastolic 59–101
[2017-07-09 05:26] LABS: BASOPHIL (%) 0 % (0-1); EOSINOPHIL (%) 0 % (0-5); HEMATOCRIT 31.6 % (38.0-50.0); HEMOGLOBIN 9.8 G/DL (12.5-16.6); IMMATURE GRANULOCYTE (%) 1.3 % (0.0-0.7); LYMPHOCYTE (%) 4.5 % (15-42); LYMPHOCYTE COUNT 0.5 K/uL (1.0-2.8); MCH 29.9 PG (29.0-34.0); MCV 96.3 FL (86-99); MONOCYTE (%) 1.8 % (3-12); MONOCYTE COUNT 0.2 K/uL (0-0.8); NEUTROPHIL (%) 92.4 % (45-76); NRBC (%) 0.4 /100 WBC (0-0); PLATELET COUNT 87 K/uL (156-360); RBC DIS.WIDTH-CV 14.4 % (11.8-14.6); RBC DIS.WIDTH-SD 48.2 % (39-53); RED BLOOD COUNT 3.28 M/uL (4.00-5.50); WHITE BLOOD COUNT 10.8 K/uL (4.1-10.2)
[2017-07-09 05:56] LABS: ALKALINE PHOSPHATASE 56 IU/L (3-129); ALT (GPT) 38 IU/L (3-49); AST (GOT) 33 IU/L (2-34); CHLORIDE 112 MEQ/L (99-109); CREATININE 1.4 MG/DL (0.6-1.3); GFR ESTIMATE (CALCULATED) 56 mL/min/ (58.99-99999); GLUCOSE 264 mg/dL (70-99); MAGNESIUM 2.9 mg/dl (1.3-2.7); PHOSPHORUS 3.5 mg/dL (2.5-4.9); POTASSIUM 3.3 MEQ/L (3.7-5.4); SODIUM 152 MEQ/L (136-147); TOTAL BILIRUBIN 0.7 MG/DL (0.0-1.0); TOTAL PROTEIN 6.4 G/DL (6.4-8.3); UREA NITROGEN (BUN) 62 mg/dL (9-23)
[2017-07-09 06:23] LABS: VANCOMYCIN, TROUGH 12.8 MCG/ML (10-20)
[2017-07-09 11:05] LABS: HEPATITIS B SURFACE ANTIGEN Nonreactive; HEPATITIS C ANTIBODY Nonreactive
[2017-07-09 11:06] LABS: ANTI-HEPATITIS A VIRUS (IGM) Nonreactive
[2017-07-09 11:08] LABS: ANTI-HEPATITIS B CORE (IGM) Nonreactive; HIV-1/2 AB/AG COMBO Nonreactive
[2017-07-09 13:01] LABS: INTER. NORMALIZED RATIO 1.8
[2017-07-09 18:59] LABS: FIBRINOGEN 354 mg/dL (150-450)
[2017-07-09 19:01] LABS: PTT 40.6 SEC (25-37)
[2017-07-10] VITALS (24 sets, daily range): BP systolic 100–170; BP diastolic 52–76
[2017-07-10 04:11] LABS: INTER. NORMALIZED RATIO 3.7; PTT 134.1 SEC (25-37)
[2017-07-10 08:38] LABS: FIBRINOGEN 328 mg/dL (150-450); INTER. NORMALIZED RATIO 2.8
[2017-07-10 08:41] LABS: PTT 105.8 SEC (25-37)
[2017-07-10 09:34] LABS: ALBUMIN 3.1 G/DL (3.2-4.8); ALKALINE PHOSPHATASE 44 IU/L (3-129); ALT (GPT) 28 IU/L (3-49); AST (GOT) 21 IU/L (2-34); CHLORIDE 117 MEQ/L (99-109); CREATININE 1.4 MG/DL (0.6-1.3); GFR ESTIMATE (CALCULATED) 56 mL/min/ (58.99-99999); GLUCOSE 132 mg/dL (70-99); MAGNESIUM 3.1 mg/dl (1.3-2.7); PHOSPHORUS 4.2 mg/dL (2.5-4.9); POTASSIUM 3.5 MEQ/L (3.7-5.4); TOTAL BILIRUBIN 0.6 MG/DL (0.0-1.0); TOTAL PROTEIN 5.9 G/DL (6.4-8.3); UREA NITROGEN (BUN) 72 mg/dL (9-23)
[2017-07-10 09:35] LABS: SODIUM 160 MEQ/L (136-147)
[2017-07-10 10:26] LABS: HEMATOCRIT 30.9 % (38.0-50.0); HEMOGLOBIN 9.4 G/DL (12.5-16.6); MCH 30.2 PG (29.0-34.0); MCHC 30.4 G/DL (30.0-36.0); MCV 99.4 FL (86-99); NRBC (%) 0.4 /100 WBC (0-0); PLATELET COUNT 97 K/uL (156-360); RBC DIS.WIDTH-CV 14.7 % (11.8-14.6); RBC DIS.WIDTH-SD 51.5 % (39-53); RED BLOOD COUNT 3.11 M/uL (4.00-5.50); WHITE BLOOD COUNT 9.3 K/uL (4.1-10.2)
[2017-07-10 10:54] LABS: BASOPHIL (%) 0.1 % (0-1); EOSINOPHIL (%) 0 % (0-5); IMMATURE GRANULOCYTE (%) 0.6 % (0.0-0.7); LYMPHOCYTE (%) 6.9 % (15-42); LYMPHOCYTE COUNT 0.6 K/uL (1.0-2.8); MONOCYTE (%) 4.4 % (3-12); MONOCYTE COUNT 0.4 K/uL (0-0.8); NEUTROPHIL COUNT 8.2 K/uL (1.8-6.4)
[2017-07-10 21:34] LABS: FIBRINOGEN 313 mg/dL (150-450); INTER. NORMALIZED RATIO 2.3
[2017-07-11] VITALS (29 sets, daily range): BP systolic 110–160; BP diastolic 58–86
[2017-07-11 00:05] LABS: CHLORIDE 116 MEQ/L (99-109); CREATININE 1.4 MG/DL (0.6-1.3); GFR ESTIMATE (CALCULATED) 56 mL/min/ (58.99-99999); POTASSIUM 3.3 MEQ/L (3.7-5.4); SODIUM 159 MEQ/L (136-147); UREA NITROGEN (BUN) 82 mg/dL (9-23)
[2017-07-11 00:06] LABS: GLUCOSE 227 mg/dL (70-99)
[2017-07-11 05:51] LABS: BASOPHIL (%) 0.1 % (0-1); EOSINOPHIL (%) 0 % (0-5); HEMATOCRIT 30.8 % (38.0-50.0); HEMOGLOBIN 9.1 G/DL (12.5-16.6); IMMATURE GRANULOCYTE (%) 0.5 % (0.0-0.7); LYMPHOCYTE (%) 2.9 % (15-42); LYMPHOCYTE COUNT 0.3 K/uL (1.0-2.8); MCH 29.5 PG (29.0-34.0); MCHC 29.5 G/DL (30.0-36.0); MONOCYTE (%) 4.4 % (3-12); MONOCYTE COUNT 0.5 K/uL (0-0.8); NEUTROPHIL (%) 92.1 % (45-76); NEUTROPHIL COUNT 9.4 K/uL (1.8-6.4); NRBC (%) 0.4 /100 WBC (0-0); PLATELET COUNT 98 K/uL (156-360); RBC DIS.WIDTH-CV 14.7 % (11.8-14.6); RBC DIS.WIDTH-SD 52.4 % (39-53); RED BLOOD COUNT 3.08 M/uL (4.00-5.50); WHITE BLOOD COUNT 10.2 K/uL (4.1-10.2)
[2017-07-11 06:25] LABS: ALBUMIN 2.9 G/DL (3.2-4.8); ALKALINE PHOSPHATASE 45 IU/L (3-129); ALT (GPT) 23 IU/L (3-49); AST (GOT) 17 IU/L (2-34); CHLORIDE 118 MEQ/L (99-109); CREATININE 1.5 MG/DL (0.6-1.3); GFR ESTIMATE (CALCULATED) 51 mL/min/ (58.99-99999); GLUCOSE 171 mg/dL (70-99); SODIUM 160 MEQ/L (136-147); TOTAL BILIRUBIN 0.6 MG/DL (0.0-1.0); TOTAL PROTEIN 5.9 G/DL (6.4-8.3); UREA NITROGEN (BUN) 85 mg/dL (9-23)
[2017-07-11 08:48] LABS: FIBRINOGEN 299 mg/dL (150-450); INTER. NORMALIZED RATIO 2.2
[2017-07-11 08:50] LABS: PTT 53.9 SEC (25-37)
[2017-07-11 11:19] LABS: PCO2 45 mm Hg (35-45); PO2 83 mm Hg (80-100); pH 7.47 (7.35-7.45)
[2017-07-11 11:20] LABS: BASE EXCESS 8.2 mEq/L (-3 to +3); BICARBONATE 32.8 mEq/L (22-26); CARBOXY HGB 1.5 % (0-5); COMMENTS - BLOOD GASES A+C+; DEVICE PB VENT; FI02 100 %; MECHANICAL RATE 15 resp/min; METHEMOGLOBIN 0.3 % (0-1.5); MODE ACPC; O2 SATURATION (CALCULATED) 98.3 % (95-99); PEEP 10 CM/H20; PRESSURE CONTROL VENTILATION 15 CM H20; SITE LR; TOTAL RESP RATE 20 resp/min
[2017-07-11 12:08] LABS: UR CREATININE CONCENTRATION 66.8 MG/DL
[2017-07-11 14:08] LABS: Heparin Induced Plt Ab Negative (Negative)
[2017-07-11 14:19] LABS: Neutrophil Cytoplasmic Aby Negative (Negative)
[2017-07-11 14:50] LABS: CHLORIDE 117 MEQ/L (99-109); CREATININE 1.3 MG/DL (0.6-1.3); GFR ESTIMATE (CALCULATED) > 59 mL/min/ (58.99-99999); GLUCOSE 210 mg/dL (70-99); POTASSIUM 3.8 MEQ/L (3.7-5.4); SODIUM 157 MEQ/L (136-147); UREA NITROGEN (BUN) 76 mg/dL (9-23)
[2017-07-11 15:43] LABS: MYELOPEROXIDASE ANTIBODY (MPO) <1.0 AI (<1.0)
[2017-07-11 18:22] LABS: ADD PTT REFLEX? Y; PTT-LA 64 sec (<=40)
[2017-07-11 19:00] LABS: FIBRINOGEN 260 mg/dL (150-450); INTER. NORMALIZED RATIO 2.3
[2017-07-11 21:54] LABS: DRVVT Mixing Study Interp Positive (()); dRVVT Screen 132 sec (<=45)
[2017-07-11 22:31] LABS: CHLORIDE 115 MEQ/L (99-109); CREATININE 1.2 MG/DL (0.6-1.3); GFR ESTIMATE (CALCULATED) > 59 mL/min/ (58.99-99999); GLUCOSE 145 mg/dL (70-99); POTASSIUM 4.1 MEQ/L (3.7-5.4); SODIUM 156 MEQ/L (136-147); UREA NITROGEN (BUN) 71 mg/dL (9-23)
[2017-07-12] VITALS (23 sets, daily range): BP systolic 114–166; BP diastolic 58–88
[2017-07-12 05:15] LABS: BASOPHIL (%) 0 % (0-1); EOSINOPHIL (%) 0 % (0-5); HEMATOCRIT 28.7 % (38.0-50.0); HEMOGLOBIN 8.7 G/DL (12.5-16.6); IMMATURE GRANULOCYTE (%) 0.7 % (0.0-0.7); LYMPHOCYTE (%) 4.8 % (15-42); LYMPHOCYTE COUNT 0.4 K/uL (1.0-2.8); MCH 30.1 PG (29.0-34.0); MCHC 30.3 G/DL (30.0-36.0); MCV 99.3 FL (86-99); MONOCYTE (%) 4.8 % (3-12); MONOCYTE COUNT 0.4 K/uL (0-0.8); NEUTROPHIL (%) 89.7 % (45-76); NEUTROPHIL COUNT 8.3 K/uL (1.8-6.4); NRBC (%) 0.4 /100 WBC (0-0); PLATELET COUNT 96 K/uL (156-360); RBC DIS.WIDTH-CV 13.9 % (11.8-14.6); RBC DIS.WIDTH-SD 49.5 % (39-53); RED BLOOD COUNT 2.89 M/uL (4.00-5.50); WHITE BLOOD COUNT 9.2 K/uL (4.1-10.2)
[2017-07-12 05:42] LABS: FIBRINOGEN 277 mg/dL (150-450); INTER. NORMALIZED RATIO 2.5
[2017-07-12 05:44] LABS: PTT 59.2 SEC (25-37)
[2017-07-12 05:52] LABS: ALBUMIN 2.6 G/DL (3.2-4.8); ALKALINE PHOSPHATASE 44 IU/L (3-129); ALT (GPT) 17 IU/L (3-49); AST (GOT) 15 IU/L (2-34); CHLORIDE 107 MEQ/L (99-109); CHLORIDE 108 MEQ/L (99-109); GFR ESTIMATE (CALCULATED) > 59 mL/min/ (58.99-99999); GLUCOSE 377 mg/dL (70-99); GLUCOSE 385 mg/dL (70-99); PHOSPHORUS 3.6 mg/dL (2.5-4.9); POTASSIUM 3.9 MEQ/L (3.7-5.4); SODIUM 145 MEQ/L (136-147); SODIUM 146 MEQ/L (136-147); TOTAL BILIRUBIN 0.6 MG/DL (0.0-1.0); TOTAL PROTEIN 5.4 G/DL (6.4-8.3); UREA NITROGEN (BUN) 63 mg/dL (9-23); UREA NITROGEN (BUN) 65 mg/dL (9-23)
[2017-07-12 15:42] LABS: PTT 37.8 SEC (25-37)
[2017-07-12 20:20] LABS: FIBRINOGEN 238 mg/dL (150-450)
[2017-07-12 20:22] LABS: PTT 43.8 SEC (25-37)
[2017-07-12 20:33] LABS: CHLORIDE 108 MEQ/L (99-109); CREATININE 1.3 MG/DL (0.6-1.3); GFR ESTIMATE (CALCULATED) > 59 mL/min/ (58.99-99999); POTASSIUM 4.6 MEQ/L (3.7-5.4); SODIUM 151 MEQ/L (136-147); UREA NITROGEN (BUN) 84 mg/dL (9-23)
[2017-07-12 20:34] LABS: GLUCOSE 180 mg/dL (70-99)
[2017-07-13] VITALS (31 sets, daily range): BP systolic 146–175; BP diastolic 67–97
[2017-07-13 05:59] LABS: BASOPHIL (%) 0 % (0-1); EOSINOPHIL (%) 0 % (0-5); HEMATOCRIT 33.3 % (38.0-50.0); HEMOGLOBIN 9.9 G/DL (12.5-16.6); IMMATURE GRANULOCYTE (%) 0.6 % (0.0-0.7); LYMPHOCYTE (%) 3.1 % (15-42); LYMPHOCYTE COUNT 0.3 K/uL (1.0-2.8); MCH 29.3 PG (29.0-34.0); MCHC 29.7 G/DL (30.0-36.0); MCV 98.5 FL (86-99); MONOCYTE (%) 2.5 % (3-12); MONOCYTE COUNT 0.3 K/uL (0-0.8); NEUTROPHIL (%) 93.8 % (45-76); NEUTROPHIL COUNT 10.3 K/uL (1.8-6.4); NRBC (%) 0.5 /100 WBC (0-0); PLATELET COUNT 108 K/uL (156-360); RBC DIS.WIDTH-SD 49.4 % (39-53); RED BLOOD COUNT 3.38 M/uL (4.00-5.50); WHITE BLOOD COUNT 10.9 K/uL (4.1-10.2)
[2017-07-13 06:45] LABS: ALBUMIN 2.9 G/DL (3.2-4.8); ALKALINE PHOSPHATASE 51 IU/L (3-129); ALT (GPT) 20 IU/L (3-49); AST (GOT) 19 IU/L (2-34); CHLORIDE 112 MEQ/L (99-109); CREATININE 1.3 MG/DL (0.6-1.3); GFR ESTIMATE (CALCULATED) > 59 mL/min/ (58.99-99999); GLUCOSE 141 mg/dL (70-99); POTASSIUM 4.7 MEQ/L (3.7-5.4); SODIUM 158 MEQ/L (136-147); TOTAL PROTEIN 6.2 G/DL (6.4-8.3); UREA NITROGEN (BUN) 80 mg/dL (9-23)
[2017-07-13 06:53] LABS: MAGNESIUM 3.5 mg/dl (1.3-2.7); PHOSPHORUS 5.5 mg/dL (2.5-4.9); TOTAL BILIRUBIN 0.8 MG/DL (0.0-1.0)
[2017-07-13 07:39] LABS: UFH SRA Result Negative (Negative)
[2017-07-13 14:13] LABS: COMMENTS - BLOOD GASES A+C=; DEVICE 980 PB; FI02 100 %; MECHANICAL RATE 20 resp/min; MODE AC; O2 FLOW 75 L/MIN; PCO2 54 mm Hg (35-45); PEEP 18 CM/H20; PO2 44 mm Hg (80-100); SITE RR; TIDAL VOLUME 600 ML; TOTAL RESP RATE 20 resp/min; pH 7.45 (7.35-7.45)
[2017-07-13 14:14] LABS: BASE EXCESS 12 mEq/L (-3 to +3); BICARBONATE 37.5 mEq/L (22-26); CARBOXY HGB 1.3 % (0-5); METHEMOGLOBIN 0.8 % (0-1.5)
[2017-07-13 17:59] LABS: INTER. NORMALIZED RATIO 1.7
[2017-07-13 18:00] LABS: CHLORIDE 110 MEQ/L (99-109); CREATININE 1.3 MG/DL (0.6-1.3); GFR ESTIMATE (CALCULATED) > 59 mL/min/ (58.99-99999); GLUCOSE 155 mg/dL (70-99); POTASSIUM 4.5 MEQ/L (3.7-5.4); SODIUM 153 MEQ/L (136-147); UREA NITROGEN (BUN) 81 mg/dL (9-23)
[2017-07-13 19:13] LABS: FIBRINOGEN 190 mg/dL (150-450)
[2017-07-13 23:42] LABS: Cryoglobulin, Qualitative Negative (Negative)
[2017-07-14] VITALS (20 sets, daily range): BP systolic 135–165; BP diastolic 64–89
[2017-07-14 05:03] LABS: BASOPHIL (%) 0.1 % (0-1); EOSINOPHIL (%) 0 % (0-5); HEMATOCRIT 30.1 % (38.0-50.0); HEMOGLOBIN 9.3 G/DL (12.5-16.6); IMMATURE GRANULOCYTE (%) 0.8 % (0.0-0.7); LYMPHOCYTE (%) 3.8 % (15-42); LYMPHOCYTE COUNT 0.4 K/uL (1.0-2.8); MCH 30.6 PG (29.0-34.0); MCHC 30.9 G/DL (30.0-36.0); MONOCYTE (%) 3.9 % (3-12); MONOCYTE COUNT 0.4 K/uL (0-0.8); NEUTROPHIL (%) 91.4 % (45-76); NEUTROPHIL COUNT 9.5 K/uL (1.8-6.4); NRBC (%) 0.5 /100 WBC (0-0); PLATELET COUNT 86 K/uL (156-360); RBC DIS.WIDTH-CV 14.4 % (11.8-14.6); RBC DIS.WIDTH-SD 50.4 % (39-53); RED BLOOD COUNT 3.04 M/uL (4.00-5.50); WHITE BLOOD COUNT 10.4 K/uL (4.1-10.2)
[2017-07-14 05:06] LABS: INTER. NORMALIZED RATIO 1.8
[2017-07-14 05:21] LABS: FIBRINOGEN 199 mg/dL (150-450)
[2017-07-14 05:22] LABS: ALBUMIN 3.4 g/dL (3.2-4.8); CHLORIDE 108 mEq/L (99-109); POTASSIUM 4.6 mEq/L (3.7-5.4); SODIUM 154 mEq/L (136-147)
[2017-07-14 05:23] LABS: MAGNESIUM 3.6 mg/dL (1.3-2.7)
[2017-07-14 05:25] LABS: GLUCOSE 155 mg/dL (70-99); TOTAL PROTEIN 6.7 g/dL (6.4-8.3)
[2017-07-14 05:26] LABS: TOTAL BILIRUBIN 1.3 mg/dL (0.0-1.0)
[2017-07-14 05:28] LABS: ALKALINE PHOSPHATASE 69 IU/L (3-129); CREATININE 1.2 mg/dL (0.6-1.3); GFR ESTIMATE (CALCULATED) > 59 mL/min/ (58.99-99999)
[2017-07-14 05:29] LABS: UREA NITROGEN (BUN) 81 mg/dL (9-23)
[2017-07-14 05:30] LABS: AST (GOT) 28 IU/L (2-34)
[2017-07-14 05:31] LABS: ALT (GPT) 25 IU/L (3-49)
[2017-07-14 05:38] LABS: PHOSPHORUS 5.9 mg/dL (2.5-4.9)
[2017-07-14 06:00] LABS: PTT BASELINE 28.5 SEC (25-32)
[2017-07-14 06:17] LABS: 60 MINUTE INCUBATION PTT ND; IMMEDIATE MIX PTT ND SEC
[2017-07-14 13:33] LABS: COMMENTS - BLOOD GASES A+C+; DEVICE 980 PB; FI02 30 %; MECHANICAL RATE 26 resp/min; MODE AC; O2 FLOW 75 L/MIN; PCO2 41 mm Hg (35-45); PEEP 16 CM/H20; PO2 70 mm Hg (80-100); SITE RR; TIDAL VOLUME 550 ML; TOTAL RESP RATE 26 resp/min; pH 7.53 (7.35-7.45)
[2017-07-14 13:34] LABS: BASE EXCESS 10.6 mEq/L (-3 to +3); BICARBONATE 34.3 mEq/L (22-26)
[2017-07-14 13:59] LABS: CHLORIDE 111 MEQ/L (99-109); GFR ESTIMATE (CALCULATED) > 59 mL/min/ (58.99-99999); GLUCOSE 162 mg/dL (70-99); POTASSIUM 4.6 MEQ/L (3.7-5.4); SODIUM 153 MEQ/L (136-147); UREA NITROGEN (BUN) 75 mg/dL (9-23)
[2017-07-14 14:10] LABS: INTER. NORMALIZED RATIO 1.8
[2017-07-14 14:13] LABS: PTT 27.5 SEC (25-37)
[2017-07-14 15:30] LABS: COMMENTS - BLOOD GASES C+; DEVICE VENT; FI02 30 %; MECHANICAL RATE 18 resp/min; MODE A/C; PEEP 14 CM/H20; SITE RR; TIDAL VOLUME 550 ML; TOTAL RESP RATE 22 resp/min
[2017-07-14 15:31] LABS: BASE EXCESS 10.8 mEq/L (-3 to +3); BICARBONATE 35.1 mEq/L (22-26); CARBOXY HGB 2.3 % (0-5); METHEMOGLOBIN 0.9 % (0-1.5); PCO2 45 mm Hg (35-45); PO2 58 mm Hg (80-100)
[2017-07-15] VITALS (23 sets, daily range): BP systolic 132–172; BP diastolic 64–99
[2017-07-15 05:10] LABS: BASOPHIL (%) 0 % (0-1); EOSINOPHIL (%) 0 % (0-5); HEMATOCRIT 28.2 % (38.0-50.0); HEMOGLOBIN 8.5 G/DL (12.5-16.6); IMMATURE GRANULOCYTE (%) 0.8 % (0.0-0.7); LYMPHOCYTE COUNT 0.2 K/uL (1.0-2.8); MCH 30.4 PG (29.0-34.0); MCHC 30.1 G/DL (30.0-36.0); MCV 100.7 FL (86-99); MONOCYTE (%) 3.7 % (3-12); MONOCYTE COUNT 0.3 K/uL (0-0.8); NEUTROPHIL (%) 92.5 % (45-76); NEUTROPHIL COUNT 7.2 K/uL (1.8-6.4); NRBC (%) 0.6 /100 WBC (0-0); PLATELET COUNT 89 K/uL (156-360); RBC DIS.WIDTH-SD 50.2 % (39-53); WHITE BLOOD COUNT 7.8 K/uL (4.1-10.2)
[2017-07-15 05:19] LABS: PTT 44.2 SEC (25-37)
[2017-07-15 06:00] LABS: ALBUMIN 2.8 G/DL (3.2-4.8); ALKALINE PHOSPHATASE 63 IU/L (3-129); ALT (GPT) 21 IU/L (3-49); AST (GOT) 27 IU/L (2-34); CHLORIDE 110 MEQ/L (99-109); GFR ESTIMATE (CALCULATED) > 59 mL/min/ (58.99-99999); GLUCOSE 163 mg/dL (70-99); MAGNESIUM 3.4 mg/dl (1.3-2.7); PHOSPHORUS 5.4 mg/dL (2.5-4.9); POTASSIUM 4.6 MEQ/L (3.7-5.4); SODIUM 151 MEQ/L (136-147); TOTAL PROTEIN 6.3 G/DL (6.4-8.3); UREA NITROGEN (BUN) 63 mg/dL (9-23)
[2017-07-15 06:02] LABS: TOTAL BILIRUBIN 1.1 MG/DL (0.0-1.0)
[2017-07-15 09:33] LABS: INTER. NORMALIZED RATIO 1.8
[2017-07-15 17:47] LABS: Flow Clinical Information NOT PROVIDED (()); Flow Number of Markers 22 (()); Flow Spec Viability 98 % (()); Flow Specimen Type PERIPHERAL BLOOD (())
[2017-07-16] VITALS (17 sets, daily range): BP systolic 131–181; BP diastolic 67–105
[2017-07-16 01:57] LABS: BASOPHIL (%) 0.1 % (0-1); EOSINOPHIL (%) 0 % (0-5); HEMATOCRIT 31.8 % (38.0-50.0); HEMOGLOBIN 9.8 G/DL (12.5-16.6); LYMPHOCYTE (%) 2.4 % (15-42); LYMPHOCYTE COUNT 0.2 K/uL (1.0-2.8); MCH 29.9 PG (29.0-34.0); MCHC 30.8 G/DL (30.0-36.0); MONOCYTE (%) 3.1 % (3-12); MONOCYTE COUNT 0.3 K/uL (0-0.8); NEUTROPHIL (%) 93.4 % (45-76); NEUTROPHIL COUNT 9.1 K/uL (1.8-6.4); NRBC (%) 0.7 /100 WBC (0-0); PLATELET COUNT 98 K/uL (156-360); RBC DIS.WIDTH-CV 14.2 % (11.8-14.6); RBC DIS.WIDTH-SD 48.7 % (39-53); RED BLOOD COUNT 3.28 M/uL (4.00-5.50); WHITE BLOOD COUNT 9.7 K/uL (4.1-10.2)
[2017-07-16 02:22] LABS: CHLORIDE 108 mEq/L (99-109); POTASSIUM 4.8 mEq/L (3.7-5.4); SODIUM 148 mEq/L (136-147)
[2017-07-16 02:24] LABS: GLUCOSE 166 mg/dL (70-99)
[2017-07-16 02:27] LABS: PHOSPHORUS 4.1 mg/dL (2.5-4.9)
[2017-07-16 02:28] LABS: CREATININE 0.8 mg/dL (0.6-1.3); GFR ESTIMATE (CALCULATED) > 59 mL/min/ (58.99-99999)
[2017-07-16 02:29] LABS: UREA NITROGEN (BUN) 55 mg/dL (9-23)
[2017-07-16 08:50] LABS: INTER. NORMALIZED RATIO 1.8
[2017-07-16 08:53] LABS: PTT 41.5 SEC (25-37)
[2017-07-16 17:18] LABS: PTT 44.2 SEC (25-37)
[2017-07-17] VITALS (23 sets, daily range): BP systolic 116–198; BP diastolic 66–98
[2017-07-17 00:50] LABS: FACTOR Xa INHIBITION (LMWH) 0.44 IU/mL
[2017-07-17 07:08] LABS: BASOPHIL (%) 0.1 % (0-1); EOSINOPHIL (%) 0 % (0-5); HEMATOCRIT 32.5 % (38.0-50.0); HEMOGLOBIN 9.9 G/DL (12.5-16.6); IMMATURE GRANULOCYTE (%) 0.9 % (0.0-0.7); LYMPHOCYTE (%) 2.6 % (15-42); LYMPHOCYTE COUNT 0.3 K/uL (1.0-2.8); MCH 29.5 PG (29.0-34.0); MCHC 30.5 G/DL (30.0-36.0); MCV 96.7 FL (86-99); MONOCYTE (%) 4.3 % (3-12); MONOCYTE COUNT 0.5 K/uL (0-0.8); NEUTROPHIL (%) 92.1 % (45-76); NEUTROPHIL COUNT 9.8 K/uL (1.8-6.4); NRBC (%) 0.8 /100 WBC (0-0); PLATELET COUNT 95 K/uL (156-360); RBC DIS.WIDTH-CV 14.5 % (11.8-14.6); RBC DIS.WIDTH-SD 50.3 % (39-53); RED BLOOD COUNT 3.36 M/uL (4.00-5.50); WHITE BLOOD COUNT 10.7 K/uL (4.1-10.2)
[2017-07-17 07:14] LABS: INTER. NORMALIZED RATIO 1.8
[2017-07-17 07:28] LABS: ALBUMIN 2.9 G/DL (3.2-4.8); ALKALINE PHOSPHATASE 86 IU/L (3-129); CHLORIDE 107 MEQ/L (99-109); CREATININE 0.8 MG/DL (0.6-1.3); GFR ESTIMATE (CALCULATED) > 59 mL/min/ (58.99-99999); POTASSIUM 5.5 MEQ/L (3.7-5.4); SODIUM 144 MEQ/L (136-147); TOTAL PROTEIN 6.1 G/DL (6.4-8.3); UREA NITROGEN (BUN) 56 mg/dL (9-23)
[2017-07-17 07:29] LABS: ALT (GPT) 67 IU/L (3-49); AST (GOT) 67 IU/L (2-34); GLUCOSE 371 mg/dL (70-99); TOTAL BILIRUBIN 1.5 MG/DL (0.0-1.0)
[2017-07-17 08:35] LABS: FACTOR Xa INHIBITION (LMWH) 0.41 IU/mL
[2017-07-17 09:06] LABS: COMMENTS - BLOOD GASES +C; DEVICE PB980; FI02 30 %; INSPIRATION TIME 0.8 seconds; MECHANICAL RATE 18 resp/min; MODE ACVC+; SITE RR +A; TOTAL RESP RATE 22 resp/min
[2017-07-17 09:07] LABS: BICARBONATE 30.5 mEq/L (22-26); CARBOXY HGB 1.6 % (0-5); METHEMOGLOBIN 0 % (0-1.5); PCO2 41 mm Hg (35-45); PEEP 8 CM/H20; PO2 73 mm Hg (80-100); TIDAL VOLUME 550 ML; pH 7.48 (7.35-7.45)
[2017-07-17 09:08] LABS: BASE EXCESS 6.4 mEq/L (-3 to +3)
[2017-07-17 13:19] LABS: FACTOR Xa INHIBITION (LMWH) 0.43 IU/mL
[2017-07-17 13:24] LABS: CHLORIDE 108 MEQ/L (99-109); CREATININE 0.8 MG/DL (0.6-1.3); GFR ESTIMATE (CALCULATED) > 59 mL/min/ (58.99-99999); GLUCOSE 315 mg/dL (70-99); POTASSIUM 5.3 MEQ/L (3.7-5.4); SODIUM 144 MEQ/L (136-147); UREA NITROGEN (BUN) 51 mg/dL (9-23)
[2017-07-17 13:29] LABS: COMMENTS - BLOOD GASES +C; DEVICE PB980; FI02 30 %; MODE SPONT; PCO2 37 mm Hg (35-45); PEEP 8 CM/H20; PO2 104 mm Hg (80-100); PRES. SUPPORT 8 CM/H2O; SITE RR +A; TOTAL RESP RATE 22 resp/min; pH 7.51 (7.35-7.45)
[2017-07-17 13:30] LABS: BASE EXCESS 6.1 mEq/L (-3 to +3); BICARBONATE 29.5 mEq/L (22-26); CARBOXY HGB 2.1 % (0-5); METHEMOGLOBIN 0.8 % (0-1.5)
[2017-07-17 18:25] LABS: FACTOR Xa INHIBITION (LMWH) 0.47 IU/mL
[2017-07-18] VITALS (18 sets, daily range): BP systolic 120–190; BP diastolic 64–103
[2017-07-18 06:43] LABS: FACTOR Xa INHIBITION (LMWH) 0.33 IU/mL; FIBRINOGEN 219 mg/dL (150-450)
[2017-07-18 07:41] LABS: INTER. NORMALIZED RATIO 1.7
[2017-07-18 11:23] LABS: APPEARANCE SL.HAZY ((CLEAR)); BILIRUBIN NEGATIVE; BLOOD LARGE; COLOR YELLOW ((YELLOW)); GLUCOSE (STRIP) >=500; KETONES NEGATIVE; LEUKOCYTES TRACE; NITRITE NEGATIVE; PROTEIN (STRIP) 100; SPECIFIC GRAVITY 1.024 (1.000-1.030); UROBILINOGEN 0.2 MG/DL (0.2-1.0)
[2017-07-18 11:32] LABS: EPITHELIAL CELLS RARE /HPF; MUCUS TRACE /LPF
[2017-07-18 11:47] LABS: BACTERIA NONE SEEN /HPF
[2017-07-18 11:48] LABS: UCUL ADDED? NO
[2017-07-18 12:02] LABS: C DIFF TOXIN NEGATIVE (NEGATIVE)
[2017-07-18 12:15] LABS: FACTOR Xa INHIBITION (LMWH) 0.47 IU/mL
[2017-07-18 20:12] LABS: BASOPHIL (%) 0.1 % (0-1); EOSINOPHIL (%) 0.1 % (0-5); HEMATOCRIT 33.4 % (38.0-50.0); HEMOGLOBIN 10.3 G/DL (12.5-16.6); IMMATURE GRANULOCYTE (%) 1.4 % (0.0-0.7); LYMPHOCYTE (%) 7.4 % (15-42); LYMPHOCYTE COUNT 0.9 K/uL (1.0-2.8); MCH 29.9 PG (29.0-34.0); MCHC 30.8 G/DL (30.0-36.0); MCV 97.1 FL (86-99); MONOCYTE (%) 4.5 % (3-12); MONOCYTE COUNT 0.6 K/uL (0-0.8); NEUTROPHIL (%) 86.5 % (45-76); NRBC (%) 1.1 /100 WBC (0-0); PLATELET COUNT 95 K/uL (156-360); RBC DIS.WIDTH-CV 14.9 % (11.8-14.6); RBC DIS.WIDTH-SD 51.8 % (39-53); RED BLOOD COUNT 3.44 M/uL (4.00-5.50); WHITE BLOOD COUNT 12.7 K/uL (4.1-10.2)
[2017-07-18 20:18] LABS: FACTOR Xa INHIBITION (LMWH) 0.49 IU/mL
[2017-07-18 20:50] LABS: FERRITIN 321 NG/ML (22-322)
[2017-07-18 21:06] LABS: ALBUMIN 2.7 G/DL (3.2-4.8); ALKALINE PHOSPHATASE 88 IU/L (3-129); ALT (GPT) 107 IU/L (3-49); AST (GOT) 108 IU/L (2-34); CHLORIDE 110 MEQ/L (99-109); CREATININE 0.8 MG/DL (0.6-1.3); GFR ESTIMATE (CALCULATED) > 59 mL/min/ (58.99-99999); GLUCOSE 146 mg/dL (70-99); IRON 81 MCG/DL (35-150); POTASSIUM 4.4 MEQ/L (3.7-5.4); SODIUM 144 MEQ/L (136-147); TOTAL BILIRUBIN 1.2 MG/DL (0.0-1.0); TOTAL PROTEIN 6.1 G/DL (6.4-8.3); TRANSFERRIN (TIBC) 202.9 mg/dL (215-380); TRANSFERRIN SATUR. 40 % (20-55); UREA NITROGEN (BUN) 49 mg/dL (9-23)
[2017-07-19] VITALS (18 sets, daily range): BP systolic 102–156; BP diastolic 58–83
[2017-07-19 08:09] LABS: INTER. NORMALIZED RATIO 1.8
[2017-07-19 08:20] LABS: FIBRINOGEN 238 mg/dL (150-450)
[2017-07-19 16:52] LABS: FACTOR Xa INHIBITION (LMWH) 0.64 IU/mL
[2017-07-19 21:58] LABS: BASOPHIL (%) 0.1 % (0-1); EOSINOPHIL (%) 0 % (0-5); HEMATOCRIT 34.3 % (38.0-50.0); HEMOGLOBIN 10.5 G/DL (12.5-16.6); IMMATURE GRANULOCYTE (%) 0.7 % (0.0-0.7); LYMPHOCYTE (%) 5.7 % (15-42); LYMPHOCYTE COUNT 0.7 K/uL (1.0-2.8); MCHC 30.6 G/DL (30.0-36.0); MONOCYTE (%) 3.6 % (3-12); MONOCYTE COUNT 0.4 K/uL (0-0.8); NEUTROPHIL (%) 89.9 % (45-76); NEUTROPHIL COUNT 11.1 K/uL (1.8-6.4); NRBC (%) 1.1 /100 WBC (0-0); PLATELET COUNT 76 K/uL (156-360); RBC DIS.WIDTH-SD 53.5 % (39-53); WHITE BLOOD COUNT 12.3 K/uL (4.1-10.2)
[2017-07-19 22:06] LABS: FACTOR Xa INHIBITION (LMWH) 0.63 IU/mL
[2017-07-20] VITALS (9 sets, daily range): BP systolic 96–130; BP diastolic 48–78
[2017-07-20 03:21] LABS: BICARBONATE 24.3 mEq/L (22-26); METHEMOGLOBIN 1.4 % (0-1.5); PCO2 46 mm Hg (35-45); PO2 51 mm Hg (80-100); pH 7.33 (7.35-7.45)
[2017-07-20 03:22] LABS: BASE EXCESS -1.8 mEq/L (-3 to +3); COMMENTS - BLOOD GASES C+A+; DEVICE AMBU BAG; FI02 100 %; O2 FLOW 15 L/MIN; PEEP 15 CM/H20; SITE RR
[2017-07-20 04:09] LABS: HEMATOCRIT 36.6 % (38.0-50.0); HEMOGLOBIN 11.4 G/DL (12.5-16.6); MCH 30.7 PG (29.0-34.0); MCHC 31.1 G/DL (30.0-36.0); MCV 98.7 FL (86-99); NRBC (%) 0.8 /100 WBC (0-0); PLATELET COUNT 80 K/uL (156-360); RBC DIS.WIDTH-CV 14.8 % (11.8-14.6); RED BLOOD COUNT 3.71 M/uL (4.00-5.50)
[2017-07-20 04:13] LABS: COMMENTS - BLOOD GASES C+; DEVICE VENT; FI02 100 %; MECHANICAL RATE 24 resp/min; MODE ACPC; PRESSURE CONTROL VENTILATION 18 CM H20; SITE A-LINE; TOTAL RESP RATE 24 resp/min
[2017-07-20 04:14] LABS: BASE EXCESS -4.1 mEq/L (-3 to +3); METHEMOGLOBIN 0.8 % (0-1.5); PCO2 50 mm Hg (35-45); PEEP 15 CM/H20; PO2 49 mm Hg (80-100); pH 7.27 (7.35-7.45)
[2017-07-20 04:20] LABS: ALBUMIN 2.8 g/dL (3.2-4.8)
[2017-07-20 04:21] LABS: CHLORIDE 111 mEq/L (99-109); POTASSIUM 4.6 mEq/L (3.7-5.4); SODIUM 143 mEq/L (136-147)
[2017-07-20 04:23] LABS: GLUCOSE 198 mg/dL (70-99); TOTAL PROTEIN 6.1 g/dL (6.4-8.3)
[2017-07-20 04:25] LABS: TOTAL BILIRUBIN 1.1 mg/dL (0.0-1.0)
[2017-07-20 04:27] LABS: CREATININE 0.8 mg/dL (0.6-1.3); GFR ESTIMATE (CALCULATED) > 59 mL/min/ (58.99-99999)
[2017-07-20 04:28] LABS: UREA NITROGEN (BUN) 58 mg/dL (9-23)
[2017-07-20 04:30] LABS: ALKALINE PHOSPHATASE 107 IU/L (3-129); ALT (GPT) 177 IU/L (3-49); AST (GOT) 145 IU/L (2-34)
[2017-07-20 04:30] LABS: FACTOR Xa INHIBITION (LMWH) 0.72 IU/mL
[2017-07-20 04:57] LABS: TROP-I INTERPRETATION NEGATIVE; TROPONIN-I 0.19 ng/mL (0.0-0.30)
[2017-07-20 04:58] LABS: CK-MB 11.3 ng/mL (0.0-4.9)
[2017-07-20 05:03] LABS: CKMB RELATIVE INDEX 0.2 (0.0-3.9); TOTAL CK 6743 IU/L (1-294)
[2017-07-20 05:04] LABS: CREATINE KINASE 6743 IU/L (1-294)
[2017-07-20 06:41] LABS: PCO2 62 mm Hg (35-45); PO2 64 mm Hg (80-100)
[2017-07-20 06:42] LABS: BASE EXCESS -6.5 mEq/L (-3 to +3); BICARBONATE 22.6 mEq/L (22-26); CARBOXY HGB 2.2 % (0-5); COMMENTS - BLOOD GASES C+A+; DEVICE VENTILATOR; FI02 100 %; MECHANICAL RATE 24 resp/min; METHEMOGLOBIN 0.7 % (0-1.5); MODE AC PC; PRESSURE CONTROL VENTILATION 18 CM H20; TOTAL RESP RATE 24 resp/min
[2017-07-20 06:43] LABS: PEEP 15 CM/H20; pH 7.17 (7.35-7.45)
[2017-07-20 07:31] LABS: INTER. NORMALIZED RATIO 1.7
[2017-07-20 11:46] LABS: FACTOR Xa INHIBITION (LMWH) 0.62 IU/mL
[2017-07-20 18:20] LABS: FACTOR Xa INHIBITION (LMWH) 0.91 IU/mL
== END 2017-07-20 21:57 | DRG 3 ==
LOC: EME → EDBD 03:04 → 4WEST 06:52 → EDOF 06:52 → ENRESERV 06:53 → 4WEST 07:45
PROVIDERS: Emergency Medicine; Internal Medicine; Internal Medicine Cardiovascular Disease; Internal Medicine Critical Care Medicine; Internal Medicine Medical Oncology; Internal Medicine Nephrology; Internal Medicine Pulmonary Disease; Obstetrics & Gynecology; Surgery
PROC: 3E1F88Z Irrigation of Respiratory Tract using Irrigating Substance, Via Natural or Artificial Opening Endoscopic (ICD-10-PCS; principal; 2017-06-26)
PROC: B548ZZA Ultrasonography of Superior Vena Cava, Guidance (ICD-10-PCS; principal; 2017-06-26)
PROC: 02HV33Z Insertion of Infusion Device into Superior Vena Cava, Percutaneous Approach (ICD-10-PCS; principal; 2017-06-26)
PROC: 0BJ08ZZ Inspection of Tracheobronchial Tree, Via Natural or Artificial Opening Endoscopic (ICD-10-PCS; principal; 2017-06-26)
PROC: 5A1955Z Respiratory Ventilation, Greater than 96 Consecutive Hours (ICD-10-PCS; 2017-06-26)
PROC: 0BH17EZ Insertion of Endotracheal Airway into Trachea, Via Natural or Artificial Opening (ICD-10-PCS; 2017-06-26)
PROC: 06H03DZ Insertion of Intraluminal Device into Inferior Vena Cava, Percutaneous Approach (ICD-10-PCS; 2017-06-30)
PROC: 5A12012 Performance of Cardiac Output, Single, Manual (ICD-10-PCS; 2017-07-01)
PROC: 5A1945Z Respiratory Ventilation, 24-96 Consecutive Hours (ICD-10-PCS; 2017-07-02)
PROC: 0HBCXZX Excision of Left Upper Arm Skin, External Approach, Diagnostic (ICD-10-PCS; 2017-07-05)
PROC: 30233K1 Transfusion of Nonautologous Frozen Plasma into Peripheral Vein, Percutaneous Approach (ICD-10-PCS; 2017-07-09)
PROC: 0DH63UZ Insertion of Feeding Device into Stomach, Percutaneous Approach (ICD-10-PCS; 2017-07-13)
PROC: 0B113F4 Bypass Trachea to Cutaneous with Tracheostomy Device, Percutaneous Approach (ICD-10-PCS; 2017-07-13)
PROC: 03HB03Z Insertion of Infusion Device into Right Radial Artery, Open Approach (ICD-10-PCS; 2017-07-20)
DX: J96.21 Acute and chronic respiratory failure with hypoxia (principal); I50.23 Acute on chronic systolic (congestive) heart failure; A41.89 Other specified sepsis; R65.21 Severe sepsis with septic shock; N17.0 Acute kidney failure with tubular necrosis; J15.6 Pneumonia due to other Gram-negative bacteria; J96.22 Acute and chronic respiratory failure with hypercapnia; T82.118A Breakdown (mechanical) of other cardiac electronic device, initial encounter; Z66 Do not resuscitate; D65 Disseminated intravascular coagulation [defibrination syndrome]; J15.0 Pneumonia due to Klebsiella pneumoniae; J15.212 Pneumonia due to Methicillin resistant Staphylococcus aureus; N39.0 Urinary tract infection, site not specified; I47.2 Ventricular tachycardia; I13.0 Hypertensive heart and chronic kidney disease with heart failure and stage 1 through stage 4 chronic kidney disease, or unspecified chronic kidney disease; I82.442 Acute embolism and thrombosis of left tibial vein; J44.0 Chronic obstructive pulmonary disease with (acute) lower respiratory infection; J44.1 Chronic obstructive pulmonary disease with (acute) exacerbation; E87.0 Hyperosmolality and hypernatremia; E87.3 Alkalosis; F33.9 Major depressive disorder, recurrent, unspecified; I82.611 Acute embolism and thrombosis of superficial veins of right upper extremity; I82.622 Acute embolism and thrombosis of deep veins of left upper extremity; Z99.11 Dependence on respirator [ventilator] status; Z68.42 Body mass index [BMI] 45.0-49.9, adult; E87.4 Mixed disorder of acid-base balance; E66.01 Morbid (severe) obesity due to excess calories; I46.2 Cardiac arrest due to underlying cardiac condition; N18.9 Chronic kidney disease, unspecified; I25.10 Atherosclerotic heart disease of native coronary artery without angina pectoris; I48.2 Chronic atrial fibrillation; K76.0 Fatty (change of) liver, not elsewhere classified; E03.9 Hypothyroidism, unspecified; E11.22 Type 2 diabetes mellitus with diabetic chronic kidney disease; E11.42 Type 2 diabetes mellitus with diabetic polyneuropathy; E11.65 Type 2 diabetes mellitus with hyperglycemia; E78.5 Hyperlipidemia, unspecified; G47.33 Obstructive sleep apnea (adult) (pediatric); I48.0 Paroxysmal atrial fibrillation; B96.4 Proteus (mirabilis) (morganii) as the cause of diseases classified elsewhere; Y83.1 Surgical operation with implant of artificial internal device as the cause of abnormal reaction of the patient, or of later complication, without mention of misadventure at the time of the procedure; D64.9 Anemia, unspecified; I25.5 Ischemic cardiomyopathy; K59.00 Constipation, unspecified; F17.210 Nicotine dependence, cigarettes, uncomplicated; Z22.322 Carrier or suspected carrier of Methicillin resistant Staphylococcus aureus; Z79.4 Long term (current) use of insulin; Z79.82 Long term (current) use of aspirin; Z79.02 Long term (current) use of antithrombotics/antiplatelets; Z91.19 Patient's noncompliance with other medical treatment and regimen; I25.2 Old myocardial infarction; Z86.711 Personal history of pulmonary embolism; Z95.5 Presence of coronary angioplasty implant and graft; Z86.718 Personal history of other venous thrombosis and embolism; Z95.810 Presence of automatic (implantable) cardiac defibrillator; Z79.01 Long term (current) use of anticoagulants; Z60.2 Problems related to living alone; Z83.3 Family history of diabetes mellitus
CPT/HCPCS: 36600; 70450; 71045; 71275; 74018; 74174; 76705; 80048; 80048 91; 80053; 80074; 80162; 80202; 81003; 82140; 82306; 82330; 82436; 82550; 82550 91; 82553; 82570; 82595 90; 82607; 82728; 82746; 82784; 82803; 82948; 83010 90; 83036; 83090 90; 83520 90; 83540; 83605; 83615; 83735; 83880; 83921 90; 83930; 83935; 84100; 84133; 84145 90; 84300; 84466; 84478; 84484; 84999; 85007; 85025; 85025 91; 85027; 85060; 85240 90; 85335 90; 85379; 85384; 85520; 85597 90; 85610; 85611; 85613 90; 85651; 85670 90; 85730; 85730 90; 85732; 86021 90; 86022 90; 86141; 86160; 86430; 86695 90; 86696 90; 86713 90; 86850; 86880; 86900; 86901; 87040; 87070; 87077; 87086; 87101; 87102; 87147; 87186; 87205; 87389; 87449; 87493; 87641; 87801; 88108; 88271 90; 88275 90; 88305; 88312; 92950; 93005; 93306; 93325; 93970; 94002; 94003; 94640; 94640 76; 94667; 94668; 94760; 94799; 95819; 99202; 99281; 99285; C1751; C1753; C1769; C1894; C8925; C9113; J0133; J0295; J0883; J1160; J1165; J1450; J1630; J1815; J1940; J1953; J1956; J2020; J2060; J2250; J2370; J2405; J2543; J2704; J2920; J2930; J3010; J3370; J3480; J7030; J7040; J7050; J7070; J7120; P9017; P9047; S0028